=== PATIENT | male | born 1950 ===

== ENCOUNTER 2023-06-14 18:16 | Outpatient (CLI) | payer OTHER, SELFPAY ==
[2023-06-14 16:39] LABS: Abs Immature Grans 0.08 10^3/uL (0.0-0.06); Absolute Basophil Count 0.03 10^3/uL (0.0-0.2); Absolute Eosinophil Count 0.05 10^3/uL (0.0-0.7); Absolute Lymphocyte Count 1.31 10^3/uL (1.2-3.4); Absolute Neutrophil Count 5.89 10^3/uL (1.2-6.7); Basophils % 0.4; Eosinophils % 0.6; HCT 32.6 % (40.0-50.0); HGB 10.7 g/dL (13.5-17.5); Lymphocytes % 16.7; MCH 29.5 pg (27.0-33.0); MCHC 32.8 % (32.0-36.0); MCV 90 fL (80-95); MPV 9.9 fL (8.0-11.0); Monocytes % 6.4; Neutrophils % 74.9; Platelet Count 335 10^3/uL (130-400); RBC 3.63 10^6/uL (4.36-5.78); RDW 13.4 % (11.8-14.1); RDW-SD 44.4 fL; WBC 7.86 10^3/uL (4.4-10.8)
[2023-06-14 17:21] LABS: ALT 141 U/L (16-63); AST 157 U/L (15-37); Albumin 2.3 g/dL (3.4-5.0); Alkaline Phosphatase 727 U/L (46-116); Anion Gap 5.2 mmol/L (3-11); BUN 28 mg/dL (7-18); Bilirubin, Total 2.3 mg/dL (0.2-1.0); CO2 32.8 mmol/L (21.0-32.0); CREATININE 1.3 mg/dL (0.70-1.30); Calcium 9.4 mg/dL (8.5-10.1); Chloride 93 mmol/L (98-107); Estimated GFR 57.65 (mL/min/1.73m2); Glucose 144 mg/dL (74-106); Magnesium 2.3 mg/dL (1.8-2.4); Potassium 3.7 mmol/L (3.5-5.1); Sodium 131 mmol/L (136-145)
[2023-06-17 12:00] LABS: CA 19-9 5666 U/mL (<35)
== END 2023-06-14 18:17 | disposition home or self-care (01) ==
LOC: LBO 18:19
PROVIDERS: PCP Internal Medicine Hematology & Oncology; Visit Provider Internal Medicine Hematology & Oncology
DX: C22.0 Liver cell carcinoma (principal)
CPT/HCPCS: 36415; 80053; 83735; 85025; 86301

== ENCOUNTER 2023-07-24 01:20 | Outpatient (RCR) | payer OTHER, SELFPAY ==
[2023-07-12 10:58] LABS: Abs Immature Grans 0.07 10^3/uL (0.0-0.06); Absolute Basophil Count 0.06 10^3/uL (0.0-0.2); Absolute Eosinophil Count 0.23 10^3/uL (0.0-0.7); Absolute Lymphocyte Count 1.83 10^3/uL (1.2-3.4); Absolute Monocyte Count 0.64 10^3/uL (0.1-0.8); Absolute Neutrophil Count 4.49 10^3/uL (1.2-6.7); Basophils % 0.8; Eosinophils % 3.1; HCT 34.4 % (40.0-50.0); HGB 11.2 g/dL (13.5-17.5); MCH 29.6 pg (27.0-33.0); MCHC 32.6 % (32.0-36.0); MCV 91 fL (80-95); MPV 10.2 fL (8.0-11.0); Monocytes % 8.7; Neutrophils % 61.4; Platelet Count 285 10^3/uL (130-400); RBC 3.79 10^6/uL (4.36-5.78); RDW 17.1 % (11.8-14.1); RDW-SD 56.5 fL; WBC 7.32 10^3/uL (4.4-10.8)
[2023-07-12 11:15] LABS: ALT 57 U/L (16-63); AST 47 U/L (15-37); Alkaline Phosphatase 210 U/L (46-116); Anion Gap 11.4 mmol/L (3-11); BUN 28 mg/dL (7-18); Bilirubin, Total 1.1 mg/dL (0.2-1.0); CO2 21.6 mmol/L (21.0-32.0); CREATININE 1.3 mg/dL (0.70-1.30); Calcium 9.2 mg/dL (8.5-10.1); Chloride 105 mmol/L (98-107); Estimated GFR 57.65 (mL/min/1.73m2); Glucose 91 mg/dL (74-106); Magnesium 2.1 mg/dL (1.8-2.4); Potassium 4.5 mmol/L (3.5-5.1); Sodium 138 mmol/L (136-145); Total Protein 7.7 g/dL (6.4-8.2)
[2023-07-12 12:12] LABS: FREE T4 0.79 ng/dL (0.76-1.46); TSH 6.56 uIU/mL (0.36-3.74)
[2023-07-15 12:19] LABS: CA 19-9 2364 U/mL (<35)
[2023-07-19 08:15] LABS: Abs Immature Grans 0.04 10^3/uL (0.0-0.06); Absolute Basophil Count 0.01 10^3/uL (0.0-0.2); Absolute Eosinophil Count 0.01 10^3/uL (0.0-0.7); Absolute Lymphocyte Count 1.61 10^3/uL (1.2-3.4); Absolute Monocyte Count 0.06 10^3/uL (0.1-0.8); Absolute Neutrophil Count 1.73 10^3/uL (1.2-6.7); Basophils % 0.3; Eosinophils % 0.3; HCT 26.4 % (40.0-50.0); HGB 8.8 g/dL (13.5-17.5); Immature Grans % 1.2; Lymphocytes % 46.5; MCH 30.4 pg (27.0-33.0); MCHC 33.3 % (32.0-36.0); MCV 91 fL (80-95); MPV 9.7 fL (8.0-11.0); Monocytes % 1.7; Platelet Count 152 10^3/uL (130-400); RBC 2.89 10^6/uL (4.36-5.78); RDW 16.4 % (11.8-14.1); RDW-SD 55.8 fL; WBC 3.46 10^3/uL (4.4-10.8)
[2023-07-19 08:31] LABS: Diff Comment Diff Reviewed; Hypochromasia 2+
[2023-07-19 08:35] LABS: ALT 98 U/L (16-63); AST 52 U/L (15-37); Albumin 2.7 g/dL (3.4-5.0); Alkaline Phosphatase 145 U/L (46-116); Anion Gap 10.2 mmol/L (3-11); BUN 25 mg/dL (7-18); Bilirubin, Total 0.9 mg/dL (0.2-1.0); CO2 19.8 mmol/L (21.0-32.0); CREATININE 0.9 mg/dL (0.70-1.30); Calcium 8.5 mg/dL (8.5-10.1); Chloride 106 mmol/L (98-107); Estimated GFR 89.62 (mL/min/1.73m2); Glucose 142 mg/dL (74-106); Magnesium 1.7 mg/dL (1.8-2.4); Sodium 136 mmol/L (136-145); Total Protein 6.5 g/dL (6.4-8.2)
[2023-07-19] MEDS: Normal Saline Flush 10 ML SYR IVP (08:55)
[2023-07-19 09:07] LABS: Reticulocyte 0.2 % (0.5-2.4)
[2023-07-19 22:49] LABS: CA 19-9 2016 U/mL (<35)
[2023-07-22 10:37] LABS: Haptoglobin 154 mg/dL (32-197)
[2023-07-24] MEDS: Normal Saline Flush 10 ML SYR IVP (10:15)
[2023-07-24 11:26] LABS: HCT 25.1 % (40.0-50.0); HGB 8.3 g/dL (13.5-17.5); MCH 30.4 pg (27.0-33.0); MCHC 33.1 % (32.0-36.0); MCV 92 fL (80-95); MPV 9.9 fL (8.0-11.0); Platelet Count 90 10^3/uL (130-400); RBC 2.73 10^6/uL (4.36-5.78); RDW 16.7 % (11.8-14.1); RDW-SD 55.8 fL; WBC 5.95 10^3/uL (4.4-10.8)
[2023-07-24 11:46] LABS: Absolute Lymphocyte Count 2.32 10^3/uL (1.2-3.4); Absolute Neutrophil Count 3.63 10^3/uL (1.2-6.7); Anisocytosis 1+; Diff Comment Manual Differential
== END 2023-08-01 23:59 | disposition home or self-care (01) ==
LOC: INF 01:20
PROVIDERS: PCP Internal Medicine Hematology & Oncology; Visit Provider Internal Medicine Hematology & Oncology
DX: C22.0 Liver cell carcinoma (principal); D64.9 Anemia, unspecified; Z79.899 Other long term (current) drug therapy; Z45.2 Encounter for adjustment and management of vascular access device
CPT/HCPCS: 36591; 80053; 83010; 83735; 84439; 84443; 85025; 85045; 86301

== ENCOUNTER 2023-08-30 01:10 | Outpatient (RCR) | payer OTHER, SELFPAY ==
[2023-08-02 09:28] LABS: Abs Immature Grans 0.01 10^3/uL (0.0-0.06); Absolute Eosinophil Count 0.04 10^3/uL (0.0-0.7); Absolute Lymphocyte Count 0.99 10^3/uL (1.2-3.4); Absolute Monocyte Count 0.51 10^3/uL (0.1-0.8); Eosinophils % 1.7; HCT 24.4 % (40.0-50.0); HGB 8.3 g/dL (13.5-17.5); Immature Grans % 0.4; Lymphocytes % 42.1; MCV 91 fL (80-95); Monocytes % 21.7; Neutrophils % 34.1; Platelet Count 637 10^3/uL (130-400); RBC 2.68 10^6/uL (4.36-5.78); RDW 17.9 % (11.8-14.1); RDW-SD 57.7 fL; WBC 2.35 10^3/uL (4.4-10.8)
[2023-08-02 09:46] LABS: Diff Comment Diff Reviewed; RBC Morphology Normal
[2023-08-02 09:53] LABS: ALT 42 U/L (16-63); AST 28 U/L (15-37); Alkaline Phosphatase 147 U/L (46-116); Anion Gap 10.6 mmol/L (3-11); BUN 25 mg/dL (7-18); Bilirubin, Total 0.7 mg/dL (0.2-1.0); CO2 21.4 mmol/L (21.0-32.0); CREATININE 1.5 mg/dL (0.70-1.30); Calcium 8.6 mg/dL (8.5-10.1); Chloride 104 mmol/L (98-107); Estimated GFR 48.55 (mL/min/1.73m2); FREE T4 0.84 ng/dL (0.76-1.46); Glucose 118 mg/dL (74-106); Potassium 4.6 mmol/L (3.5-5.1); Sodium 136 mmol/L (136-145); TSH 1.93 uIU/Ml (0.36-3.74); Total Protein 6.8 g/dL (6.4-8.2)
[2023-08-02 10:16] LABS: Magnesium 1.4 mg/dL (1.8-2.4)
[2023-08-02] MEDS: Normal Saline Flush 10 ML SYR IVP (10:19)
[2023-08-02 11:23] LABS: Iron 32 ug/dL (65-175); Total Iron Binding Capacity 230 ug/dL (250-450); Transferrin Sat 14 % (20-55)
[2023-08-02 11:57] LABS: Ferritin 932 ng/mL (26-388); Folate 7.5 ng/mL (8.6-20.0); Vitamin B12 627 pg/mL (193-986)
[2023-08-02 17:40] LABS: AFP Tumor Marker <2.5 ng/mL (<8.1)
[2023-08-02 21:02] LABS: CA 19-9 943 U/mL (<35)
[2023-08-09] MEDS: Normal Saline Flush 10 ML SYR IVP (08:27)
[2023-08-09 09:06] LABS: Abs Immature Grans 0.62 10^3/uL (0.0-0.06); Absolute Basophil Count 0.09 10^3/uL (0.0-0.2); Absolute Eosinophil Count 0.16 10^3/uL (0.0-0.7); Absolute Lymphocyte Count 1.18 10^3/uL (1.2-3.4); Absolute Monocyte Count 1.39 10^3/uL (0.1-0.8); Absolute Neutrophil Count 3.85 10^3/uL (1.2-6.7); Basophils % 1.2; Eosinophils % 2.2; HGB 8.5 g/dL (13.5-17.5); Immature Grans % 8.5; Lymphocytes % 16.2; MCH 29.5 pg (27.0-33.0); MCHC 32.7 % (32.0-36.0); MCV 90 fL (80-95); MPV 10.2 fL (8.0-11.0); Monocytes % 19.1; Neutrophils % 52.8; Nucleated RBC 0.3 % (0.0-0.3); Platelet Count 583 10^3/uL (130-400); RBC 2.88 10^6/uL (4.36-5.78); RDW-SD 55.6 fL; WBC 7.29 10^3/uL (4.4-10.8)
[2023-08-09 09:26] LABS: Diff Comment Diff Reviewed; Polychromasia Present
[2023-08-09 09:40] LABS: ALT 39 U/L (16-63); AST 27 U/L (15-37); Albumin 2.5 g/dL (3.4-5.0); Alkaline Phosphatase 157 U/L (46-116); Anion Gap 9.8 mmol/L (3-11); BUN 29 mg/dL (7-18); Bilirubin, Total 0.5 mg/dL (0.2-1.0); CO2 24.2 mmol/L (21.0-32.0); CREATININE 1.4 mg/dL (0.70-1.30); Calcium 8.7 mg/dL (8.5-10.1); Chloride 100 mmol/L (98-107); Estimated GFR 52.74 (mL/min/1.73m2); FREE T4 1.51 ng/dL (0.76-1.46); Glucose 131 mg/dL (74-106); Magnesium 1.9 mg/dL (1.8-2.4); Potassium 5.4 mmol/L (3.5-5.1); Sodium 134 mmol/L (136-145); TSH 2.21 uIU/Ml (0.36-3.74); Total Protein 6.7 g/dL (6.4-8.2)
[2023-08-12 12:15] LABS: CA 19-9 811 U/mL (<35)
[2023-08-16 09:23] LABS: Abs Immature Grans 1.43 10^3/uL (0.0-0.06); HCT 25.3 % (40.0-50.0); MCH 29.5 pg (27.0-33.0); MCHC 31.6 % (32.0-36.0); MCV 93 fL (80-95); MPV 9.9 fL (8.0-11.0); Platelet Count 254 10^3/uL (130-400); RBC 2.71 10^6/uL (4.36-5.78); RDW 16.8 % (11.8-14.1); RDW-SD 56.9 fL; WBC 6.38 10^3/uL (4.4-10.8)
[2023-08-16 09:42] LABS: ALT 83 U/L (16-63); AST 48 U/L (15-37); Albumin 2.8 g/dL (3.4-5.0); Alkaline Phosphatase 135 U/L (46-116); Anion Gap 7.5 mmol/L (3-11); BUN 22 mg/dL (7-18); Bilirubin, Total 0.4 mg/dL (0.2-1.0); CO2 24.5 mmol/L (21.0-32.0); CREATININE 1.1 mg/dL (0.70-1.30); Calcium 8.7 mg/dL (8.5-10.1); Chloride 108 mmol/L (98-107); Estimated GFR 70.44 (mL/min/1.73m2); Glucose 119 mg/dL (74-106); Magnesium 1.5 mg/dL (1.8-2.4); Potassium 5.2 mmol/L (3.5-5.1); Sodium 140 mmol/L (136-145); Total Protein 6.5 g/dL (6.4-8.2)
[2023-08-16 09:59] LABS: Absolute Basophil Count 0.06 10^3/uL (0.0-0.2); Absolute Eosinophil Count 0.06 10^3/uL (0.0-0.7); Absolute Lymphocyte Count 1.98 10^3/uL (1.2-3.4); Absolute Monocyte Count 0.96 10^3/uL (0.1-0.8); Absolute Neutrophil Count 2.93 10^3/uL (1.2-6.7); Atypical Lymphocytes % 3; Bands % 5; Metamyelocytes % 3; Myelocytes % 3
[2023-08-16 10:00] LABS: Diff Comment Manual Differential; Hypochromasia 2+; Polychromasia Present
[2023-08-16] MEDS: Normal Saline Flush 10 ML SYR IVP (10:01)
[2023-08-30] MEDS: Normal Saline Flush 10 ML SYR IVP (08:32)
[2023-08-30 08:42] LABS: Abs Immature Grans 0.04 10^3/uL (0.0-0.06); Absolute Basophil Count 0.02 10^3/uL (0.0-0.2); Absolute Eosinophil Count 0.35 10^3/uL (0.0-0.7); Absolute Lymphocyte Count 1.13 10^3/uL (1.2-3.4); Absolute Monocyte Count 0.64 10^3/uL (0.1-0.8); Absolute Neutrophil Count 3.46 10^3/uL (1.2-6.7); Basophils % 0.4; Eosinophils % 6.2; HCT 22.7 % (40.0-50.0); HGB 7.4 g/dL (13.5-17.5); Immature Grans % 0.7; MCH 30.2 pg (27.0-33.0); MCHC 32.6 % (32.0-36.0); MCV 93 fL (80-95); MPV 9.7 fL (8.0-11.0); Monocytes % 11.3; Neutrophils % 61.4; Platelet Count 427 10^3/uL (130-400); RBC 2.45 10^6/uL (4.36-5.78); RDW 18.2 % (11.8-14.1); RDW-SD 60.7 fL; WBC 5.64 10^3/uL (4.4-10.8)
[2023-08-30 09:07] LABS: ALT 43 U/L (16-63); AST 43 U/L (15-37); Albumin 2.8 g/dL (3.4-5.0); Alkaline Phosphatase 166 U/L (46-116); Anion Gap 7.4 mmol/L (3-11); BUN 17 mg/dL (7-18); Bilirubin, Total 0.3 mg/dL (0.2-1.0); CO2 24.6 mmol/L (21.0-32.0); CREATININE 1.1 mg/dL (0.70-1.30); Calcium 8.6 mg/dL (8.5-10.1); Chloride 108 mmol/L (98-107); Estimated GFR 70.44 (mL/min/1.73m2); FREE T4 0.82 ng/dL (0.76-1.46); Glucose 116 mg/dL (74-106); Magnesium 1.6 mg/dL (1.8-2.4); Potassium 4.8 mmol/L (3.5-5.1); Sodium 140 mmol/L (136-145); TSH 1.89 uIU/Ml (0.36-3.74); Total Protein 6.3 g/dL (6.4-8.2)
[2023-08-30 20:29] LABS: CA 19-9 415 U/mL (<35)
== END 2023-09-01 23:59 | disposition home or self-care (01) ==
LOC: INF 01:10
PROVIDERS: Nurse Practitioner Family; PCP Internal Medicine Hematology & Oncology; Visit Provider Internal Medicine Hematology & Oncology
DX: C22.1 Intrahepatic bile duct carcinoma (principal); Z79.899 Other long term (current) drug therapy; C22.0 Liver cell carcinoma; D64.9 Anemia, unspecified
CPT/HCPCS: 36591; 80053; 82105; 82607; 82728; 82746; 83540; 83550; 83735; 84439; 84443; 85025; 86301

== ENCOUNTER → 2023-09-23 02:38 | Outpatient (CLI) | payer OTHER, SELFPAY ==
[2023-09-23] MEDS: Barium Sulfate 2% W/V-Berry Smoothie 450 ML BTL PO (11:14)
[2023-09-23] MEDS: Barium Sulfate 2% W/V-Creamy Vanilla Smoothie 450 ML BTL PO (11:14)
[2023-09-23] MEDS: Normal Saline - Diluent 50 ML VIAL IJ (13:11)
[2023-09-23] MEDS: Normal Saline Flush 10 ML SYR IJ (13:12)
[2023-09-23] MEDS: Omnipaque 350 MG/ML 500 ML BTL-Imaging package 100 ML IJ (13:58)
--- NOTE | 2023-09-23 14:00 | DI.CT_ITS ---
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 Pulmonary parenchyma: There are bilateral upper lobe opacities present. There are moderate size bila teral pleural effusions with subjacent infiltrates which may represent atelectasis or pneumonia. Manpreet cified granulomatous disease is present. There is a 6-7 mm peripheral left lower lobe nodule which w as present on the prior examination. (Series 5, image 435). Visualized thyroid gland: Unremarkable. Mediastinum and Wendy: There has been interval increase in size of the right paratracheal adenopathy c urrently measuring 1.8 x 1.2 cm (series 5, image 91). This compares to 1.3 x 0.7 cm. There is been increase in size and number of the mediastinal lymph nodes. The esophagus is unremarkable. Pleura: No pneumothorax. Heart: Mild cardiomegaly. Coronary artery calcifications are present. No pericardial effusion. Pulmonary arteries: No pulmonary emboli are identified. Aorta: Thoracic aorta non-dilated. No evidence of dissection. Atherosclerotic calcification is prese nt. Lymph nodes: No significant axillary adenopathy. Tubes, Catheters, and Lines: There is a right-sided Pmjewj-S-Pinl catheter. Soft tissues: Unremarkable. Bones:Within normal limits for the patient's age. No aggressive osseous lesions. ABDOMEN: Liver: There is again seen a percutaneous cholecystostomy tube in the left lobe. There is also a don nt in the common hepatic and common bile duct. There is unchanged slight decreased attenuation in th e liver adjacent to the gallbladder fossa. There is a new a subtle area of decreased attenuation in the lateral periphery of the right lobe of the liver measuring 1.3 cm (series 7, image 290). Portal, Superior Mesenteric, and Splenic Veins: Unremarkable. Gallbladder and Biliary Tract: The gallbladder is contracted. Biliary stents are in place. Pancreas: Normal density, no abnormal calcifications or inflammatory process. Spleen: Normal. Adrenals: No masses seen. Kidneys: Normal size, contour and axis. No radiodense stones or obstructive uropathy. No masses seen. Abdominal Aorta: Abdominal portion non-dilated. Atherosclerotic calcifications are present. Bowel: There is diverticulosis of the colon without evidence of acute diverticulitis. There is no bow el wall thickening or obstruction. No evidence of appendicitis. Peritoneal Cavity: No ascites, collection or mesenteric inflammatory response. No free air. Lymph Nodes: Within normal limits. Bones: Within normal limits for the patient's age. Soft Tissues: Unremarkable. PELVIS: Bladder: Symmetric distention, no gross wall thickening. Reproductive Organs: Unremarkable as visualized. Lymph Nodes: Within normal limits. Bones: Within normal limits. No aggressive osseous lesions are seen. IMPRESSION: 1. Interval development of moderate bilateral pleural effusions and subjacent infiltrates which may r epresent atelectasis or pneumonia. 2. Bilateral predominantly upper lobe opacities in the lungs. Differential considerations include ate lectasis, pneumonia or metastatic disease. 3. Interval increase in size and number of mediastinal adenopathy. 4. Area of decreased attenuation in the periphery of the right lobe of the liver measuring 1.3 cm. He patic metastasis should be considered. 5. Unremarkable CT scan of the chest. RADIATION DOSE DELIVERED: 1,958.99mGy.cm Total DLP DATA REPOSITORY: All CT scans at this facility are submitted to the National Radiology Data Registry (NRDR) Dose Index Registry (DIR) with the [employer] (ACR). RADIATION OPTIMIZATION: All CT scans at this facility use at least one of these dose optimization te chniques: automated exposure control; mA and/or kV adjustment per patient size (includes targeted exa ms where dose is matched to clinical indication); or iterative reconstruction.
== END ==
PROVIDERS: PCP Internal Medicine Hematology & Oncology; Visit Provider Nurse Practitioner Family
DX: C22.1 Intrahepatic bile duct carcinoma (principal); C22.8 Malignant neoplasm of liver, primary, unspecified as to type
CPT/HCPCS: 74177; 71260

== ENCOUNTER 2023-09-27 00:46 | Outpatient (RCR) | payer OTHER, SELFPAY ==
[2023-09-02] VITALS (9 sets, daily range): BP systolic 113–144; BP diastolic 61–72; PULSE 64–76; RESP 16–17; TEMP 36.4–37.1; O2SAT 94–99
[2023-09-02] MEDS: Normal Saline Flush 10 ML SYR IVP (08:30)
[2023-09-02 08:41] LABS: Abs Immature Grans 0.02 10^3/uL (0.0-0.06); Absolute Basophil Count 0.01 10^3/uL (0.0-0.2); Absolute Eosinophil Count 0.18 10^3/uL (0.0-0.7); Absolute Lymphocyte Count 0.62 10^3/uL (1.2-3.4); Absolute Monocyte Count 0.05 10^3/uL (0.1-0.8); Absolute Neutrophil Count 2.82 10^3/uL (1.2-6.7); Basophils % 0.3; Eosinophils % 4.9; HCT 21.7 % (40.0-50.0); Immature Grans % 0.5; Lymphocytes % 16.8; MCH 29.7 pg (27.0-33.0); MCHC 31.8 % (32.0-36.0); MCV 94 fL (80-95); MPV 9.6 fL (8.0-11.0); Monocytes % 1.4; Neutrophils % 76.1; Platelet Count 509 10^3/uL (130-400); RBC 2.32 10^6/uL (4.36-5.78); RDW 17.7 % (11.8-14.1); RDW-SD 60.7 fL
[2023-09-02 08:45] LABS: HGB 6.9 g/dL (13.5-17.5)
[2023-09-06] MEDS: Normal Saline Flush 10 ML SYR IVP (09:25)
[2023-09-06 09:55] LABS: Abs Immature Grans 0.22 10^3/uL (0.0-0.06); HCT 25.7 % (40.0-50.0); HGB 8.7 g/dL (13.5-17.5); MCH 30.6 pg (27.0-33.0); MCHC 33.9 % (32.0-36.0); MCV 91 fL (80-95); MPV 9.1 fL (8.0-11.0); Platelet Count 356 10^3/uL (130-400); RBC 2.84 10^6/uL (4.36-5.78); RDW 16.2 % (11.8-14.1); RDW-SD 53.1 fL; WBC 3.94 10^3/uL (4.4-10.8)
[2023-09-06 10:27] LABS: Absolute Lymphocyte Count 1.42 10^3/uL (1.2-3.4); Absolute Monocyte Count 0.35 10^3/uL (0.1-0.8); Absolute Neutrophil Count 1.85 10^3/uL (1.2-6.7); Atypical Lymphocytes % 5; Bands % 0; Diff Comment Manual Differential; Metamyelocytes % 2; Myelocytes % 1
[2023-09-06 10:28] LABS: Basophilic Stippling Present; Polychromasia Present
[2023-09-06 10:30] LABS: ALT 50 U/L (16-63); AST 37 U/L (15-37); Albumin 2.8 g/dL (3.4-5.0); Alkaline Phosphatase 191 U/L (46-116); Anion Gap 5.8 mmol/L (3-11); BUN 19 mg/dL (7-18); Bilirubin, Total 0.6 mg/dL (0.2-1.0); CO2 29.2 mmol/L (21.0-32.0); Chloride 101 mmol/L (98-107); Estimated GFR 78.98 (mL/min/1.73m2); Glucose 164 mg/dL (74-106); Magnesium 1.7 mg/dL (1.8-2.4); Potassium 5.4 mmol/L (3.5-5.1); Sodium 136 mmol/L (136-145); TSH 3.88 uIU/Ml (0.36-3.74); Total Protein 6.6 g/dL (6.4-8.2)
[2023-09-06 23:29] LABS: CA 19-9 298 U/mL (<35)
[2023-09-20] MEDS: Normal Saline Flush 10 ML SYR IVP (09:44)
[2023-09-20 09:46] LABS: Abs Immature Grans 0.05 10^3/uL (0.0-0.06); Absolute Basophil Count 0.01 10^3/uL (0.0-0.2); Absolute Eosinophil Count 0.04 10^3/uL (0.0-0.7); Absolute Lymphocyte Count 0.39 10^3/uL (1.2-3.4); Absolute Monocyte Count 0.87 10^3/uL (0.1-0.8); Absolute Neutrophil Count 7.51 10^3/uL (1.2-6.7); Basophils % 0.1; Eosinophils % 0.5; HCT 26.5 % (40.0-50.0); HGB 8.6 g/dL (13.5-17.5); Immature Grans % 0.6; Lymphocytes % 4.4; MCH 29.7 pg (27.0-33.0); MCHC 32.5 % (32.0-36.0); MCV 91 fL (80-95); Monocytes % 9.8; Neutrophils % 84.6; Platelet Count 291 10^3/uL (130-400); RDW 16.9 % (11.8-14.1); RDW-SD 56.3 fL; WBC 8.87 10^3/uL (4.4-10.8)
[2023-09-20 10:08] LABS: ALT 50 U/L (16-63); AST 45 U/L (15-37); Albumin 2.8 g/dL (3.4-5.0); Alkaline Phosphatase 254 U/L (46-116); Anion Gap 8.3 mmol/L (3-11); BUN 17 mg/dL (7-18); Bilirubin, Total 0.9 mg/dL (0.2-1.0); CO2 26.7 mmol/L (21.0-32.0); CREATININE 1.1 mg/dL (0.70-1.30); Calcium 8.6 mg/dL (8.5-10.1); Chloride 100 mmol/L (98-107); Estimated GFR 70.44 (mL/min/1.73m2); FREE T4 1.02 ng/dL (0.76-1.46); Glucose 183 mg/dL (74-106); Magnesium 1.6 mg/dL (1.8-2.4); Potassium 4.7 mmol/L (3.5-5.1); Sodium 135 mmol/L (136-145); TSH 2.05 uIU/Ml (0.36-3.74); Total Protein 6.6 g/dL (6.4-8.2)
[2023-09-23] MEDS: Normal Saline Flush 10 ML SYR IVP (11:00)
[2023-09-23 11:49] LABS: CA 19-9 271 U/mL (<35)
[2023-09-27] MEDS: Normal Saline Flush 10 ML SYR IVP (09:25)
[2023-09-27 09:28] LABS: Abs Immature Grans 0.32 10^3/uL (0.0-0.06); Absolute Basophil Count 0.03 10^3/uL (0.0-0.2); Absolute Eosinophil Count 0.09 10^3/uL (0.0-0.7); Absolute Lymphocyte Count 0.92 10^3/uL (1.2-3.4); Absolute Monocyte Count 0.52 10^3/uL (0.1-0.8); Absolute Neutrophil Count 1.85 10^3/uL (1.2-6.7); Basophils % 0.8; Eosinophils % 2.4; HCT 26.5 % (40.0-50.0); HGB 8.5 g/dL (13.5-17.5); Immature Grans % 8.6; Lymphocytes % 24.7; MCH 29.3 pg (27.0-33.0); MCHC 32.1 % (32.0-36.0); MCV 91 fL (80-95); MPV 8.1 fL (8.0-11.0); Monocytes % 13.9; Neutrophils % 49.6; Nucleated RBC 1.1 % (0.0-0.3); Platelet Count 214 10^3/uL (130-400); RDW 15.9 % (11.8-14.1); RDW-SD 53.1 fL; WBC 3.73 10^3/uL (4.4-10.8)
[2023-09-27 09:35] LABS: Diff Comment Diff Reviewed; RBC Morphology Normal
[2023-09-27 09:42] LABS: ALT 67 U/L (16-63); AST 44 U/L (15-37); Alkaline Phosphatase 282 U/L (46-116); Anion Gap 8.7 mmol/L (3-11); BUN 18 mg/dL (7-18); Bilirubin, Total 0.4 mg/dL (0.2-1.0); CO2 27.3 mmol/L (21.0-32.0); CREATININE 1.1 mg/dL (0.70-1.30); Calcium 8.8 mg/dL (8.5-10.1); Chloride 103 mmol/L (98-107); Estimated GFR 70.44 (mL/min/1.73m2); Glucose 126 mg/dL (74-106); Magnesium 1.5 mg/dL (1.8-2.4); Potassium 4.8 mmol/L (3.5-5.1); Sodium 139 mmol/L (136-145); Total Protein 6.6 g/dL (6.4-8.2)
== END 2023-10-01 23:59 | disposition home or self-care (01) ==
LOC: INF 00:46
PROVIDERS: PCP Internal Medicine Hematology & Oncology; Visit Provider Internal Medicine Hematology & Oncology
DX: C22.0 Liver cell carcinoma (principal); C22.1 Intrahepatic bile duct carcinoma; D64.9 Anemia, unspecified; Z79.899 Other long term (current) drug therapy
CPT/HCPCS: 36430; 36591; 80053; 86850; 86900; 86901; 86920; 96523; 83735; 84439; 84443; 85025; 86301; P9016

== ENCOUNTER 2023-11-01 00:34 | Outpatient (RCR) | payer OTHER, SELFPAY ==
[2023-10-02 00:24] VITALS: BP 128/66; PULSE 69; RESP 16; TEMP 36.4
[2023-10-10] VITALS (11 sets, daily range): BP systolic 144–164; BP diastolic 70–86; PULSE 66–86; RESP 16–18; TEMP 36.1–36.8; O2SAT 97–100
[2023-10-10 10:00] LABS: Abs Immature Grans 0.04 10^3/uL (0.0-0.06); Absolute Basophil Count 0.01 10^3/uL (0.0-0.2); Absolute Eosinophil Count 0.04 10^3/uL (0.0-0.7); Absolute Lymphocyte Count 0.73 10^3/uL (1.2-3.4); Absolute Monocyte Count 0.78 10^3/uL (0.1-0.8); Absolute Neutrophil Count 3.38 10^3/uL (1.2-6.7); Basophils % 0.2 %; Eosinophils % 0.8 %; Immature Grans % 0.8 %; Lymphocytes % 14.7 %; MCH 29.2 pg (27.0-33.0); MCHC 31.8 % (32.0-36.0); MCV 92 fL (80-95); MPV 9.9 fL (8.0-11.0); Monocytes % 15.7 %; Neutrophils % 67.8 %; Platelet Count 318 10^3/uL (130-400); RDW 17.5 % (11.8-14.1); RDW-SD 59.2 fL; WBC 4.98 10^3/uL (4.4-10.8)
[2023-10-10 10:17] LABS: ALT 23 U/L (16-63); AST 15 U/L (15-37); Albumin 2.7 g/dL (3.4-5.0); Alkaline Phosphatase 119 U/L (46-116); Anion Gap 8.9 mmol/L (3-11); BUN 23 mg/dL (7-18); Bilirubin, Total 0.4 mg/dL (0.2-1.0); CO2 26.1 mmol/L (21.0-32.0); CREATININE 1.3 mg/dL (0.70-1.30); Calcium 8.7 mg/dL (8.5-10.1); Chloride 102 mmol/L (98-107); Estimated GFR 57.65 (mL/min/1.73m2); Glucose 179 mg/dL (74-106); Magnesium 1.6 mg/dL (1.8-2.4); Potassium 4.3 mmol/L (3.5-5.1); Sodium 137 mmol/L (136-145); Total Protein 6.2 g/dL (6.4-8.2)
[2023-10-10] MEDS: diphenhydrAMINE 25 MG CAP PO (11:46)
[2023-10-10] MEDS: Acetaminophen 325 MG TAB 650 MG PO (11:46)
[2023-10-10 12:05] LABS: Reticulocyte 5.5 % (0.5-2.4)
[2023-10-10 12:31] LABS: Bilirubin Negative (Negative); Blood Small (Negative); Clarity Cloudy (Clear); Glucose Negative (Negative); Ketones Negative (Negative); Leukocyte Esterase Moderate (Negative); Nitrite Positive (Negative); Urobilinogen 0.2 mg/dL (Up to 0.2)
[2023-10-10 12:37] LABS: C & S Indicated? Yes; WBC >50 HPF (0-5)
[2023-10-10 13:10] LABS: Folate 9.8 ng/mL (8.6-20.0); Vitamin B12 1242 pg/mL (193-986)
[2023-10-10 13:12] LABS: Ferritin 1424 ng/mL (26-388)
[2023-10-10 15:52] LABS: Iron 27 ug/dL (65-175); Total Iron Binding Capacity 180 ug/dL (250-450); Transferrin Sat 15 % (20-55)
[2023-10-10] MEDS: Normal Saline Flush 10 ML SYR IVP (17:17)
[2023-10-11 09:47] LABS: Haptoglobin 194 mg/dL (32-197)
[2023-10-17 10:55] LABS: Abs Immature Grans 0.26 10^3/uL (0.0-0.06); Absolute Basophil Count 0.03 10^3/uL (0.0-0.2); Absolute Eosinophil Count 0.14 10^3/uL (0.0-0.7); Absolute Monocyte Count 1.02 10^3/uL (0.1-0.8); Absolute Neutrophil Count 3.21 10^3/uL (1.2-6.7); Basophils % 0.5 %; Eosinophils % 2.5 %; HCT 30.3 % (40.0-50.0); HGB 9.7 g/dL (13.5-17.5); Immature Grans % 4.6 %; Lymphocytes % 17.7 %; MCV 91 fL (80-95); MPV 8.8 fL (8.0-11.0); Neutrophils % 56.7 %; Platelet Count 338 10^3/uL (130-400); RBC 3.34 10^6/uL (4.36-5.78); RDW 17.8 % (11.8-14.1); RDW-SD 59.2 fL; WBC 5.66 10^3/uL (4.4-10.8)
[2023-10-17] MEDS: Normal Saline Flush 10 ML SYR IVP (11:05)
[2023-10-17 11:21] LABS: ALT 30 U/L (16-63); AST 26 U/L (15-37); Albumin 2.8 g/dL (3.4-5.0); Alkaline Phosphatase 87 U/L (46-116); Anion Gap 5.6 mmol/L (3-11); BUN 22 mg/dL (7-18); Bilirubin, Total 0.5 mg/dL (0.2-1.0); CO2 28.4 mmol/L (21.0-32.0); CREATININE 1.1 mg/dL (0.70-1.30); Calcium 8.5 mg/dL (8.5-10.1); Chloride 103 mmol/L (98-107); Estimated GFR 70.44 (mL/min/1.73m2); Glucose 171 mg/dL (74-106); Magnesium 1.7 mg/dL (1.8-2.4); Potassium 4.5 mmol/L (3.5-5.1); Sodium 137 mmol/L (136-145); TSH 1.45 uIU/Ml (0.36-3.74); Total Protein 6.3 g/dL (6.4-8.2)
[2023-10-18 08:57] LABS: CA 19-9 181 U/mL (<35)
[2023-10-22] MEDS: Normal Saline Flush 10 ML SYR IVP (07:41)
[2023-11-01] MEDS: Normal Saline Flush 10 ML SYR IVP (09:06)
[2023-11-01 09:28] LABS: Abs Immature Grans 0.03 10^3/uL (0.0-0.06); Absolute Basophil Count 0.01 10^3/uL (0.0-0.2); Absolute Eosinophil Count 0.02 10^3/uL (0.0-0.7); Absolute Lymphocyte Count 0.97 10^3/uL (1.2-3.4); Absolute Monocyte Count 0.44 10^3/uL (0.1-0.8); Absolute Neutrophil Count 3.71 10^3/uL (1.2-6.7); Basophils % 0.2 %; Eosinophils % 0.4 %; HCT 26.2 % (40.0-50.0); HGB 8.5 g/dL (13.5-17.5); Immature Grans % 0.6 %; Lymphocytes % 18.7 %; MCH 29.5 pg (27.0-33.0); MCHC 32.4 % (32.0-36.0); MCV 91 fL (80-95); Monocytes % 8.5 %; Neutrophils % 71.6 %; Platelet Count 175 10^3/uL (130-400); RBC 2.88 10^6/uL (4.36-5.78); RDW 18.8 % (11.8-14.1); RDW-SD 62.8 fL; WBC 5.18 10^3/uL (4.4-10.8)
[2023-11-01 09:53] LABS: ALT 29 U/L (16-63); AST 26 U/L (15-37); Albumin 2.9 g/dL (3.4-5.0); Alkaline Phosphatase 71 U/L (46-116); Anion Gap 6.8 mmol/L (3-11); BUN 24 mg/dL (7-18); Bilirubin, Total 0.4 mg/dL (0.2-1.0); CO2 26.2 mmol/L (21.0-32.0); CREATININE 1.2 mg/dL (0.70-1.30); Calcium 8.9 mg/dL (8.5-10.1); Chloride 107 mmol/L (98-107); Estimated GFR 63.46 (mL/min/1.73m2); FREE T4 0.76 ng/dL (0.76-1.46); Glucose 181 mg/dL (74-106); Magnesium 1.6 mg/dL (1.8-2.4); Potassium 4.7 mmol/L (3.5-5.1); Sodium 140 mmol/L (136-145); TSH 3.29 uIU/Ml (0.36-3.74); Total Protein 6.3 g/dL (6.4-8.2)
[2023-11-01 21:24] LABS: CA 19-9 140 U/mL (<35)
== END 2023-11-01 23:59 | disposition home or self-care (01) ==
LOC: INF 00:34
PROVIDERS: PCP Internal Medicine Hematology & Oncology; Visit Provider Internal Medicine Hematology & Oncology
DX: C22.1 Intrahepatic bile duct carcinoma (principal); M10.9 Gout, unspecified
CPT/HCPCS: 36430; 36591; 80053; 86850; 86900; 86901; 86920; 87077; 96523; 81003; 81015; 82607; 82728; 82746; 83010; 83540; 83550; 83735; 84439; 84443; 84550; 85025; 85045; 86301; 87086; 87186; P9016

== ENCOUNTER 2023-11-27 01:16 | Outpatient (RCR) | payer OTHER, SELFPAY ==
[2023-11-02 00:25] VITALS: BP 128/66; PULSE 69; RESP 16; TEMP 36.4
[2023-11-13] MEDS: Normal Saline Flush 10 ML SYR IVP (11:28)
[2023-11-13 11:29] LABS: Abs Immature Grans 0.05 10^3/uL (0.0-0.06); Absolute Basophil Count 0.01 10^3/uL (0.0-0.2); Absolute Eosinophil Count 0.11 10^3/uL (0.0-0.7); Absolute Lymphocyte Count 1.02 10^3/uL (1.2-3.4); Absolute Monocyte Count 0.37 10^3/uL (0.1-0.8); Basophils % 0.2 %; Eosinophils % 2.6 %; HCT 23.1 % (40.0-50.0); HGB 7.2 g/dL (13.5-17.5); Immature Grans % 1.2 %; Lymphocytes % 24.3 %; MCH 29.5 pg (27.0-33.0); MCHC 31.2 % (32.0-36.0); MCV 95 fL (80-95); MPV 10.5 fL (8.0-11.0); Monocytes % 8.8 %; Neutrophils % 62.9 %; RBC 2.44 10^6/uL (4.36-5.78); RDW 19.9 % (11.8-14.1); RDW-SD 67.9 fL; WBC 4.19 10^3/uL (4.4-10.8)
[2023-11-13 11:31] LABS: Absolute Neutrophil Count 2.64 10^3/uL (1.2-6.7)
[2023-11-13 11:50] LABS: Diff Comment Diff Reviewed; Platelet Count 90 10^3/uL (130-400)
[2023-11-13 11:51] LABS: Hypochromasia 2+
[2023-11-13 11:55] LABS: ALT 62 U/L (16-63); AST 32 U/L (15-37); Albumin 2.7 g/dL (3.4-5.0); Alkaline Phosphatase 146 U/L (46-116); Anion Gap 6.7 mmol/L (3-11); BUN 25 mg/dL (7-18); Bilirubin, Total 0.3 mg/dL (0.2-1.0); CO2 26.3 mmol/L (21.0-32.0); CREATININE 1.5 mg/dL (0.70-1.30); Calcium 8.7 mg/dL (8.5-10.1); Chloride 108 mmol/L (98-107); Estimated GFR 48.55 (mL/min/1.73m2); FREE T4 0.92 ng/dL (0.76-1.46); Glucose 153 mg/dL (74-106); Potassium 4.5 mmol/L (3.5-5.1); Sodium 141 mmol/L (136-145); TSH 3.51 uIU/Ml (0.36-3.74); Total Protein 6.1 g/dL (6.4-8.2)
[2023-11-13 19:42] LABS: Magnesium 1.4 mg/dL (1.8-2.4)
[2023-11-13 19:55] LABS: CA 19-9 168 U/mL (<35)
[2023-11-14] MEDS: diphenhydrAMINE 25 MG CAP (10:30)
[2023-11-14 11:01] VITALS: BP 150/72; PULSE 63; RESP 18; TEMP 36.3; O2SAT 100
[2023-11-14 11:16] VITALS: BP 160/77; PULSE 56; RESP 18; TEMP 36.3; O2SAT 100
[2023-11-14 11:35] VITALS: BP 137/64; PULSE 57; RESP 18; TEMP 36.2; O2SAT 100
[2023-11-14 12:08] VITALS: BP 166/81; PULSE 66; RESP 16; TEMP 36.2; O2SAT 100
[2023-11-14 13:03] VITALS: BP 158/69; PULSE 65; RESP 17; TEMP 36.3; O2SAT 98
[2023-11-14] MEDS: Normal Saline Flush 10 ML SYR IVP (13:05)
[2023-11-20] MEDS: Normal Saline Flush 10 ML SYR IVP (11:32)
[2023-11-20 11:43] LABS: Abs Immature Grans 0.03 10^3/uL (0.0-0.06); Absolute Basophil Count 0.02 10^3/uL (0.0-0.2); Absolute Eosinophil Count 0.06 10^3/uL (0.0-0.7); Absolute Lymphocyte Count 1.31 10^3/uL (1.2-3.4); Absolute Monocyte Count 0.57 10^3/uL (0.1-0.8); Absolute Neutrophil Count 2.29 10^3/uL (1.2-6.7); Basophils % 0.5 %; Eosinophils % 1.4 %; HCT 29.4 % (40.0-50.0); HGB 9.1 g/dL (13.5-17.5); Immature Grans % 0.7 %; Lymphocytes % 30.6 %; MCH 29.8 pg (27.0-33.0); MCV 96 fL (80-95); MPV 9.3 fL (8.0-11.0); Monocytes % 13.3 %; Neutrophils % 53.5 %; Platelet Count 198 10^3/uL (130-400); RBC 3.05 10^6/uL (4.36-5.78); RDW 20.6 % (11.8-14.1); RDW-SD 71.6 fL; WBC 4.28 10^3/uL (4.4-10.8)
[2023-11-20 12:11] LABS: Anisocytosis 2+; Diff Comment RBC Morph Reviewed
[2023-11-20 12:12] LABS: Macrocytosis 1+
[2023-11-20 12:31] LABS: ALT 38 U/L (16-63); AST 33 U/L (15-37); Alkaline Phosphatase 123 U/L (46-116); Anion Gap 5.4 mmol/L (3-11); BUN 31 mg/dL (7-18); Bilirubin, Total 0.6 mg/dL (0.2-1.0); CO2 29.6 mmol/L (21.0-32.0); CREATININE 1.5 mg/dL (0.70-1.30); Calcium 8.9 mg/dL (8.5-10.1); Chloride 105 mmol/L (98-107); Estimated GFR 48.55 (mL/min/1.73m2); Glucose 188 mg/dL (74-106); Iron 75 ug/dL (65-175); Magnesium 1.7 mg/dL (1.8-2.4); Potassium 5.1 mmol/L (3.5-5.1); Sodium 140 mmol/L (136-145); Total Iron Binding Capacity 215 ug/dL (250-450); Total Protein 6.7 g/dL (6.4-8.2); Transferrin Sat 35 % (20-55)
[2023-11-20 12:32] LABS: Ferritin 1352 ng/mL (26-388)
[2023-11-22 08:35] LABS: CA 19-9 127 U/mL (<35)
[2023-11-27] MEDS: Normal Saline Flush 10 ML SYR IVP (10:00)
[2023-11-27 12:23] LABS: Abs Immature Grans 0.02 10^3/uL (0.0-0.06); Absolute Basophil Count 0.01 10^3/uL (0.0-0.2); Absolute Eosinophil Count 0.08 10^3/uL (0.0-0.7); Absolute Lymphocyte Count 0.95 10^3/uL (1.2-3.4); Absolute Monocyte Count 0.04 10^3/uL (0.1-0.8); Absolute Neutrophil Count 2.18 10^3/uL (1.2-6.7); Basophils % 0.3 %; Eosinophils % 2.4 %; HCT 27.6 % (40.0-50.0); HGB 8.8 g/dL (13.5-17.5); Immature Grans % 0.6 %; MCH 30.4 pg (27.0-33.0); MCHC 31.9 % (32.0-36.0); MCV 96 fL (80-95); Monocytes % 1.2 %; Neutrophils % 66.5 %; Platelet Count 132 10^3/uL (130-400); RBC 2.89 10^6/uL (4.36-5.78); RDW 18.6 % (11.8-14.1); RDW-SD 66.5 fL; WBC 3.28 10^3/uL (4.4-10.8)
[2023-11-27 12:48] LABS: ALT 67 U/L (16-63); AST 54 U/L (15-37); Albumin 2.9 g/dL (3.4-5.0); Alkaline Phosphatase 108 U/L (46-116); Anion Gap 6.7 mmol/L (3-11); BUN 25 mg/dL (7-18); Bilirubin, Total 0.37 mg/dL (0.2-1.0); CO2 28.3 mmol/L (21.0-32.0); CREATININE 1.3 mg/dL (0.70-1.30); Calcium 8.6 mg/dL (8.5-10.1); Chloride 105 mmol/L (98-107); Estimated GFR 57.65 (mL/min/1.73m2); Glucose 153 mg/dL (74-106); Potassium 4.5 mmol/L (3.5-5.1); Sodium 140 mmol/L (136-145); Total Protein 6.5 g/dL (6.4-8.2)
== END 2023-12-01 23:59 | disposition home or self-care (01) ==
LOC: INF 01:16
PROVIDERS: PCP Internal Medicine Hematology & Oncology; Visit Provider Internal Medicine Hematology & Oncology
DX: Z45.2 Encounter for adjustment and management of vascular access device (principal); C22.1 Intrahepatic bile duct carcinoma
CPT/HCPCS: 36430; 36591; 80053; 86850; 86900; 86901; 86920; 82728; 83540; 83550; 83735; 84439; 84443; 85025; 86301; P9016

== ENCOUNTER 2023-12-27 00:40 | Outpatient (RCR) | payer OTHER, SELFPAY ==
[2023-12-02 00:26] VITALS: BP 128/66; PULSE 69; RESP 16; TEMP 36.4
[2023-12-13 08:16] LABS: Abs Immature Grans 0.01 10^3/uL (0.0-0.06); Absolute Basophil Count 0.01 10^3/uL (0.0-0.2); Absolute Eosinophil Count 0.14 10^3/uL (0.0-0.7); Absolute Lymphocyte Count 1.14 10^3/uL (1.2-3.4); Absolute Monocyte Count 0.38 10^3/uL (0.1-0.8); Absolute Neutrophil Count 1.51 10^3/uL (1.2-6.7); Basophils % 0.3 %; Eosinophils % 4.4 %; HCT 32.1 % (40.0-50.0); HGB 10.4 g/dL (13.5-17.5); Immature Grans % 0.3 %; Lymphocytes % 35.7 %; MCH 31.4 pg (27.0-33.0); MCHC 32.4 % (32.0-36.0); MCV 97 fL (80-95); Monocytes % 11.9 %; Neutrophils % 47.4 %; Platelet Count 211 10^3/uL (130-400); RBC 3.31 10^6/uL (4.36-5.78); RDW-SD 68.5 fL; WBC 3.19 10^3/uL (4.4-10.8)
[2023-12-13] MEDS: Normal Saline Flush 10 ML SYR IVP (08:43)
[2023-12-13 08:45] LABS: ALT 30 U/L (16-63); AST 28 U/L (15-37); Alkaline Phosphatase 88 U/L (46-116); Anion Gap 5.6 mmol/L (3-11); BUN 24 mg/dL (7-18); Bilirubin, Total 0.33 mg/dL (0.2-1.0); CO2 28.4 mmol/L (21.0-32.0); CREATININE 1.4 mg/dL (0.70-1.30); Calcium 8.9 mg/dL (8.5-10.1); Chloride 109 mmol/L (98-107); Estimated GFR 52.74 (mL/min/1.73m2); Glucose 188 mg/dL (74-106); Potassium 4.5 mmol/L (3.5-5.1); Sodium 143 mmol/L (136-145); Total Protein 6.5 g/dL (6.4-8.2)
[2023-12-13 09:38] LABS: Magnesium 1.5 mg/dL (1.8-2.4)
[2023-12-16 10:09] LABS: CA 19-9 101 U/mL (<35)
[2023-12-27 09:09] LABS: Abs Immature Grans 0.02 10^3/uL (0.0-0.06); Absolute Basophil Count 0.02 10^3/uL (0.0-0.2); Absolute Eosinophil Count 0.15 10^3/uL (0.0-0.7); Absolute Lymphocyte Count 0.95 10^3/uL (1.2-3.4); Absolute Monocyte Count 0.39 10^3/uL (0.1-0.8); Absolute Neutrophil Count 3.52 10^3/uL (1.2-6.7); Basophils % 0.4 %; HCT 31.8 % (40.0-50.0); HGB 10.4 g/dL (13.5-17.5); Immature Grans % 0.4 %; Lymphocytes % 18.8 %; MCH 32.1 pg (27.0-33.0); MCHC 32.7 % (32.0-36.0); MCV 98 fL (80-95); MPV 10.3 fL (8.0-11.0); Monocytes % 7.7 %; Neutrophils % 69.7 %; Platelet Count 157 10^3/uL (130-400); RBC 3.24 10^6/uL (4.36-5.78); RDW 17.1 % (11.8-14.1); RDW-SD 61.6 fL; WBC 5.05 10^3/uL (4.4-10.8)
[2023-12-27 09:30] LABS: ALT 36 U/L (16-63); AST 26 U/L (15-37); Albumin 3.3 g/dL (3.4-5.0); Alkaline Phosphatase 88 U/L (46-116); Anion Gap 6.4 mmol/L (3-11); BUN 19 mg/dL (7-18); Bilirubin, Total 0.63 mg/dL (0.2-1.0); CO2 27.6 mmol/L (21.0-32.0); CREATININE 1.3 mg/dL (0.70-1.30); Chloride 108 mmol/L (98-107); Estimated GFR 57.65 (mL/min/1.73m2); Glucose 153 mg/dL (74-106); Magnesium 1.6 mg/dL (1.8-2.4); Potassium 4.3 mmol/L (3.5-5.1); Sodium 142 mmol/L (136-145); Total Protein 6.6 g/dL (6.4-8.2)
[2023-12-27 09:58] VITALS: BP 128/66; PULSE 69; RESP 16; TEMP 36.4
[2023-12-27] MEDS: Normal Saline Flush 10 ML SYR IVP (09:59)
[2023-12-30 15:50] LABS: CA 19-9 73 U/mL (<35)
== END 2024-01-01 23:59 | disposition home or self-care (01) ==
LOC: INF 00:40
PROVIDERS: PCP Internal Medicine Hematology & Oncology; Visit Provider Internal Medicine Hematology & Oncology
DX: C22.0 Liver cell carcinoma (principal); C22.1 Intrahepatic bile duct carcinoma; Z45.2 Encounter for adjustment and management of vascular access device
CPT/HCPCS: 36591; 80053; 83735; 85025; 86301

== ENCOUNTER 2024-01-24 00:29 | Outpatient (RCR) | payer OTHER, SELFPAY ==
[2024-01-02 00:32] VITALS: BP 128/66; PULSE 69; RESP 16; TEMP 36.4
[2024-01-09] MEDS: Normal Saline Flush 10 ML SYR IVP (09:15)
[2024-01-09 09:19] LABS: Abs Immature Grans 0.02 10^3/uL (0.0-0.06); Absolute Basophil Count 0.01 10^3/uL (0.0-0.2); Absolute Eosinophil Count 0.11 10^3/uL (0.0-0.7); Absolute Lymphocyte Count 1.19 10^3/uL (1.2-3.4); Absolute Monocyte Count 0.43 10^3/uL (0.1-0.8); Absolute Neutrophil Count 2.51 10^3/uL (1.2-6.7); Basophils % 0.2 %; Eosinophils % 2.6 %; HCT 30.8 % (40.0-50.0); Immature Grans % 0.5 %; Lymphocytes % 27.9 %; MCH 31.6 pg (27.0-33.0); MCHC 32.5 % (32.0-36.0); MCV 98 fL (80-95); MPV 10.1 fL (8.0-11.0); Monocytes % 10.1 %; Neutrophils % 58.7 %; Platelet Count 131 10^3/uL (130-400); RBC 3.16 10^6/uL (4.36-5.78); RDW 15.9 % (11.8-14.1); RDW-SD 56.9 fL; WBC 4.27 10^3/uL (4.4-10.8)
[2024-01-09 09:40] LABS: ALT 33 U/L (16-63); AST 27 U/L (15-37); Albumin 3.5 g/dL (3.4-5.0); Alkaline Phosphatase 79 U/L (46-116); Anion Gap 7.7 mmol/L (3-11); BUN 25 mg/dL (7-18); Bilirubin, Total 0.41 mg/dL (0.2-1.0); CO2 27.3 mmol/L (21.0-32.0); CREATININE 1.2 mg/dL (0.70-1.30); Calcium 9.2 mg/dL (8.5-10.1); Chloride 106 mmol/L (98-107); Estimated GFR 63.46 (mL/min/1.73m2); Glucose 114 mg/dL (74-106); Magnesium 1.8 mg/dL (1.8-2.4); Potassium 4.7 mmol/L (3.5-5.1); Sodium 141 mmol/L (136-145); Total Protein 6.8 g/dL (6.4-8.2)
[2024-01-10 09:16] LABS: CA 19-9 68 U/mL (<35)
[2024-01-24] MEDS: Normal Saline Flush 10 ML SYR IVP (09:07)
[2024-01-24 09:23] LABS: Abs Immature Grans 0.01 10^3/uL (0.0-0.06); Absolute Basophil Count 0.02 10^3/uL (0.0-0.2); Absolute Eosinophil Count 0.16 10^3/uL (0.0-0.7); Absolute Lymphocyte Count 1.08 10^3/uL (1.2-3.4); Absolute Monocyte Count 0.54 10^3/uL (0.1-0.8); Absolute Neutrophil Count 3.32 10^3/uL (1.2-6.7); Basophils % 0.4 %; Eosinophils % 3.1 %; HCT 28.8 % (40.0-50.0); HGB 9.5 g/dL (13.5-17.5); Immature Grans % 0.2 %; Lymphocytes % 21.1 %; MCH 32.1 pg (27.0-33.0); MCV 97 fL (80-95); MPV 10.6 fL (8.0-11.0); Monocytes % 10.5 %; Neutrophils % 64.7 %; Platelet Count 142 10^3/uL (130-400); RBC 2.96 10^6/uL (4.36-5.78); RDW 16.9 % (11.8-14.1); RDW-SD 58.6 fL; WBC 5.13 10^3/uL (4.4-10.8)
[2024-01-24 09:40] LABS: ALT 55 U/L (16-63); AST 38 U/L (15-37); Albumin 3.2 g/dL (3.4-5.0); Alkaline Phosphatase 81 U/L (46-116); Anion Gap 5.5 mmol/L (3-11); BUN 31 mg/dL (7-18); Bilirubin, Total 0.26 mg/dL (0.2-1.0); CO2 28.5 mmol/L (21.0-32.0); CREATININE 1.2 mg/dL (0.70-1.30); Calcium 9.2 mg/dL (8.5-10.1); Chloride 107 mmol/L (98-107); Estimated GFR 63.46 (mL/min/1.73m2); Glucose 103 mg/dL (74-106); Magnesium 1.9 mg/dL (1.8-2.4); Potassium 4.5 mmol/L (3.5-5.1); Sodium 141 mmol/L (136-145); Total Protein 6.4 g/dL (6.4-8.2)
[2024-01-24 20:41] LABS: CA 19-9 66 U/mL (<35)
== END 2024-02-01 23:59 | disposition home or self-care (01) ==
LOC: INF 00:29
PROVIDERS: PCP Internal Medicine Hematology & Oncology; Visit Provider Internal Medicine Hematology & Oncology
DX: C22.0 Liver cell carcinoma (principal); C22.1 Intrahepatic bile duct carcinoma; Z79.899 Other long term (current) drug therapy
CPT/HCPCS: 36591; 80053; 83735; 85025; 86301

== ENCOUNTER 2024-02-07 01:01 | Outpatient (RCR) | payer OTHER, SELFPAY ==
[2024-02-02 00:12] VITALS: BP 128/66; PULSE 69; RESP 16; TEMP 36.4
[2024-02-07] MEDS: Normal Saline Flush 10 ML SYR IVP (08:07)
[2024-02-07 08:29] LABS: Abs Immature Grans 0.04 10^3/uL (0.0-0.06); Absolute Basophil Count 0.02 10^3/uL (0.0-0.2); Absolute Lymphocyte Count 1.25 10^3/uL (1.2-3.4); Absolute Monocyte Count 0.49 10^3/uL (0.1-0.8); Absolute Neutrophil Count 3.01 10^3/uL (1.2-6.7); Basophils % 0.4 %; HCT 29.2 % (40.0-50.0); HGB 9.5 g/dL (13.5-17.5); Immature Grans % 0.8 %; MCH 32.6 pg (27.0-33.0); MCHC 32.5 % (32.0-36.0); MCV 100 fL (80-95); MPV 10.9 fL (8.0-11.0); Monocytes % 9.8 %; Platelet Count 161 10^3/uL (130-400); RBC 2.91 10^6/uL (4.36-5.78); RDW 17.2 % (11.8-14.1); RDW-SD 62.4 fL; WBC 5.01 10^3/uL (4.4-10.8)
[2024-02-07 08:46] LABS: ALT 32 U/L (16-63); AST 25 U/L (15-37); Albumin 3.2 g/dL (3.4-5.0); Alkaline Phosphatase 77 U/L (46-116); Anion Gap 4.1 mmol/L (3-11); BUN 30 mg/dL (7-18); CO2 28.9 mmol/L (21.0-32.0); CREATININE 1.3 mg/dL (0.70-1.30); Calcium 9.1 mg/dL (8.5-10.1); Chloride 106 mmol/L (98-107); Estimated GFR 57.65 (mL/min/1.73m2); Glucose 151 mg/dL (74-106); Potassium 4.4 mmol/L (3.5-5.1); Sodium 139 mmol/L (136-145); Total Protein 6.4 g/dL (6.4-8.2)
[2024-02-07 22:13] LABS: CA 19-9 54 U/mL (<35)
== END 2024-03-02 23:59 | disposition home or self-care (01) ==
LOC: INF 01:01
PROVIDERS: PCP Internal Medicine Hematology & Oncology; Visit Provider Internal Medicine Hematology & Oncology
DX: C22.1 Intrahepatic bile duct carcinoma (principal); C22.0 Liver cell carcinoma; Z79.899 Other long term (current) drug therapy
CPT/HCPCS: 80053; 83735; 85025; 86301

== ENCOUNTER 2024-04-02 02:38 | Outpatient (RCR) | payer OTHER, SELFPAY ==
[2024-03-03 00:09] VITALS: BP 128/66; PULSE 69; RESP 16; TEMP 36.4
[2024-03-13 07:49] LABS: Abs Immature Grans 0.02 10^3/uL (0.0-0.06); Absolute Basophil Count 0.02 10^3/uL (0.0-0.2); Absolute Eosinophil Count 0.34 10^3/uL (0.0-0.7); Absolute Lymphocyte Count 1.27 10^3/uL (1.2-3.4); Absolute Monocyte Count 0.44 10^3/uL (0.1-0.8); Absolute Neutrophil Count 3.75 10^3/uL (1.2-6.7); Basophils % 0.3 %; Eosinophils % 5.8 %; HCT 30.9 % (40.0-50.0); HGB 10.5 g/dL (13.5-17.5); Immature Grans % 0.3 %; Lymphocytes % 21.7 %; MCH 32.9 pg (27.0-33.0); MCV 97 fL (80-95); MPV 10.9 fL (8.0-11.0); Monocytes % 7.5 %; Neutrophils % 64.4 %; Platelet Count 136 10^3/uL (130-400); RBC 3.19 10^6/uL (4.36-5.78); RDW 14.5 % (11.8-14.1); WBC 5.84 10^3/uL (4.4-10.8)
[2024-03-13] MEDS: Normal Saline Flush 10 ML SYR IVP (08:08)
[2024-03-13 08:14] LABS: ALT 97 U/L (16-63); AST 77 U/L (15-37); Albumin 3.3 g/dL (3.4-5.0); Alkaline Phosphatase 186 U/L (46-116); Anion Gap 5.7 mmol/L (3-11); BUN 28 mg/dL (7-18); Bilirubin, Total 0.66 mg/dL (0.2-1.0); CO2 30.3 mmol/L (21.0-32.0); CREATININE 1.4 mg/dL (0.70-1.30); Calcium 9.2 mg/dL (8.5-10.1); Chloride 105 mmol/L (98-107); Estimated GFR 52.74 (mL/min/1.73m2); Glucose 167 mg/dL (74-106); Magnesium 1.7 mg/dL (1.8-2.4); Sodium 141 mmol/L (136-145); Total Protein 6.9 g/dL (6.4-8.2)
[2024-03-13 19:38] LABS: CA 19-9 63 U/mL (<35)
[2024-03-23] MEDS: Normal Saline Flush 10 ML SYR IVP (10:03)
[2024-03-23 10:42] LABS: ALT 138 U/L (16-63); AST 91 U/L (15-37); Albumin 3.1 g/dL (3.4-5.0); Alkaline Phosphatase 199 U/L (46-116); Anion Gap 5.6 mmol/L (3-11); BUN 32 mg/dL (7-18); CO2 29.4 mmol/L (21.0-32.0); CREATININE 1.6 mg/dL (0.70-1.30); Chloride 107 mmol/L (98-107); Estimated GFR 44.93 (mL/min/1.73m2); Glucose 148 mg/dL (74-106); Potassium 5.4 mmol/L (3.5-5.1); Sodium 142 mmol/L (136-145); Total Protein 6.6 g/dL (6.4-8.2)
[2024-03-27] MEDS: Normal Saline Flush 10 ML SYR IVP (09:49)
[2024-03-27 10:01] LABS: Abs Immature Grans 0.02 10^3/uL (0.0-0.06); Absolute Basophil Count 0.01 10^3/uL (0.0-0.2); Absolute Eosinophil Count 0.25 10^3/uL (0.0-0.7); Absolute Lymphocyte Count 0.73 10^3/uL (1.2-3.4); Absolute Monocyte Count 0.35 10^3/uL (0.1-0.8); Absolute Neutrophil Count 2.67 10^3/uL (1.2-6.7); Basophils % 0.2 %; Eosinophils % 6.2 %; HCT 26.9 % (40.0-50.0); HGB 8.7 g/dL (13.5-17.5); Immature Grans % 0.5 %; Lymphocytes % 18.1 %; MCH 33.2 pg (27.0-33.0); MCHC 32.3 % (32.0-36.0); MCV 103 fL (80-95); MPV 10.3 fL (8.0-11.0); Monocytes % 8.7 %; Neutrophils % 66.3 %; Platelet Count 152 10^3/uL (130-400); RBC 2.62 10^6/uL (4.36-5.78); RDW 15.4 % (11.8-14.1); RDW-SD 56.3 fL; WBC 4.03 10^3/uL (4.4-10.8)
[2024-03-27 10:20] LABS: ALT 115 U/L (16-63); AST 78 U/L (15-37); Albumin 3.1 g/dL (3.4-5.0); Alkaline Phosphatase 190 U/L (46-116); Anion Gap 5.9 mmol/L (3-11); BUN 25 mg/dL (7-18); Bilirubin, Total 0.37 mg/dL (0.2-1.0); CO2 26.1 mmol/L (21.0-32.0); CREATININE 1.4 mg/dL (0.70-1.30); Chloride 109 mmol/L (98-107); Estimated GFR 52.74 (mL/min/1.73m2); Glucose 155 mg/dL (74-106); Magnesium 1.9 mg/dL (1.8-2.4); Potassium 5.1 mmol/L (3.5-5.1); Sodium 141 mmol/L (136-145); Total Protein 6.6 g/dL (6.4-8.2)
[2024-03-27 18:28] LABS: CA 19-9 75 U/mL (<35)
[2024-04-02 13:39] LABS: ALT 125 U/L (16-63); AST 70 U/L (15-37); Albumin 3.4 g/dL (3.4-5.0); Alkaline Phosphatase 155 U/L (46-116); Anion Gap 5.1 mmol/L (3-11); BUN 33 mg/dL (7-18); Bilirubin, Total 0.39 mg/dL (0.2-1.0); CO2 28.9 mmol/L (21.0-32.0); CREATININE 1.5 mg/dL (0.70-1.30); Calcium 9.5 mg/dL (8.5-10.1); Chloride 108 mmol/L (98-107); Estimated GFR 48.25 (mL/min/1.73m2); Glucose 101 mg/dL (74-106); Sodium 142 mmol/L (136-145); Total Protein 7.1 g/dL (6.4-8.2)
[2024-04-02] MEDS: Normal Saline Flush 10 ML SYR IVP (13:55)
== END 2024-04-02 23:59 | disposition home or self-care (01) ==
LOC: INF 02:38
PROVIDERS: PCP Internal Medicine Hematology & Oncology; Visit Provider Internal Medicine Hematology & Oncology
DX: C22.0 Liver cell carcinoma (principal); C22.1 Intrahepatic bile duct carcinoma; Z45.2 Encounter for adjustment and management of vascular access device
CPT/HCPCS: 36591; 80053; 83735; 85025; 86301

== ENCOUNTER 2024-04-23 02:50 | Outpatient (RCR) | payer OTHER, SELFPAY ==
[2024-04-03 00:06] VITALS: BP 128/66; PULSE 69; RESP 16; TEMP 36.4
[2024-04-09] MEDS: Normal Saline Flush 10 ML SYR IVP (08:32)
[2024-04-09 08:46] LABS: Abs Immature Grans 0.01 10^3/uL (0.0-0.06); Absolute Basophil Count 0.01 10^3/uL (0.0-0.2); Absolute Eosinophil Count 0.07 10^3/uL (0.0-0.7); Absolute Lymphocyte Count 0.55 10^3/uL (1.2-3.4); Absolute Monocyte Count 0.32 10^3/uL (0.1-0.8); Absolute Neutrophil Count 1.32 10^3/uL (1.2-6.7); Basophils % 0.4 %; Eosinophils % 3.1 %; HCT 24.6 % (40.0-50.0); HGB 8.1 g/dL (13.5-17.5); Immature Grans % 0.4 %; Lymphocytes % 24.1 %; MCH 32.9 pg (27.0-33.0); MCHC 32.9 % (32.0-36.0); MCV 100 fL (80-95); MPV 10.3 fL (8.0-11.0); Platelet Count 119 10^3/uL (130-400); RBC 2.46 10^6/uL (4.36-5.78); RDW 15.4 % (11.8-14.1); WBC 2.28 10^3/uL (4.4-10.8)
[2024-04-09 09:00] LABS: ALT 153 U/L (16-63); AST 184 U/L (15-37); Albumin 3.1 g/dL (3.4-5.0); Alkaline Phosphatase 245 U/L (46-116); Anion Gap 7.5 mmol/L (3-11); BUN 28 mg/dL (7-18); Bilirubin, Total 0.75 mg/dL (0.2-1.0); CO2 25.5 mmol/L (21.0-32.0); CREATININE 1.3 mg/dL (0.70-1.30); Calcium 9.1 mg/dL (8.5-10.1); Chloride 108 mmol/L (98-107); Estimated GFR 57.29 (mL/min/1.73m2); Glucose 127 mg/dL (74-106); Magnesium 1.9 mg/dL (1.8-2.4); Potassium 4.7 mmol/L (3.5-5.1); Sodium 141 mmol/L (136-145); Total Protein 6.8 g/dL (6.4-8.2)
[2024-04-10] MEDS: diphenhydrAMINE 25 MG CAP PO (08:04)
[2024-04-10] MEDS: Acetaminophen 325 MG TAB 650 MG PO (08:05)
[2024-04-10] MEDS: Normal Saline Flush 10 ML SYR IVP (08:05)
[2024-04-10 08:20] VITALS: BP 178/92; PULSE 76; RESP 17; TEMP 36.3; O2SAT 99
[2024-04-10 08:35] VITALS: BP 170/85; PULSE 64; RESP 17; TEMP 36.5; O2SAT 99
[2024-04-10 08:45] VITALS: BP 160/83
[2024-04-10 08:54] VITALS: BP 160/70; PULSE 64; RESP 16; TEMP 36.5; O2SAT 99
[2024-04-10 09:20] VITALS: BP 166/79; PULSE 60; RESP 17; TEMP 36.2; O2SAT 100
[2024-04-10 09:24] LABS: CA 19-9 89 U/mL (<35)
[2024-04-10 10:05] VITALS: BP 170/77; PULSE 51; RESP 16; TEMP 36; O2SAT 100
--- NOTE | 2024-04-11 11:51 | SUR.INTRAOP ---
entered chart to send CT results to [facility]
== END 2024-05-02 23:59 | disposition home or self-care (01) ==
LOC: INF 02:50
PROVIDERS: PCP Internal Medicine Hematology & Oncology; Visit Provider Internal Medicine Hematology & Oncology
DX: C22.1 Intrahepatic bile duct carcinoma (principal); C22.0 Liver cell carcinoma
CPT/HCPCS: 36430; 36591; 80053; 86850; 86900; 86901; 86920; 96523; 83735; 85025; 86301; P9016

== ENCOUNTER 2024-05-21 02:06 | Outpatient (RCR) | payer OTHER, SELFPAY ==
[2024-05-03 00:04] VITALS: BP 128/66; PULSE 69; RESP 16; TEMP 36.4
[2024-05-07] MEDS: Normal Saline Flush 10 ML SYR IVP (08:24)
[2024-05-07 08:56] LABS: Abs Immature Grans 0.04 10^3/uL (0.0-0.06); Absolute Basophil Count 0.02 10^3/uL (0.0-0.2); Absolute Eosinophil Count 0.27 10^3/uL (0.0-0.7); Absolute Lymphocyte Count 1.03 10^3/uL (1.2-3.4); Absolute Monocyte Count 0.56 10^3/uL (0.1-0.8); Absolute Neutrophil Count 3.15 10^3/uL (1.2-6.7); Basophils % 0.4 %; Eosinophils % 5.3 %; HGB 9.7 g/dL (13.5-17.5); Immature Grans % 0.8 %; Lymphocytes % 20.3 %; MCH 31.4 pg (27.0-33.0); MCHC 31.3 % (32.0-36.0); MCV 100 fL (80-95); MPV 11.1 fL (8.0-11.0); Neutrophils % 62.2 %; Platelet Count 149 10^3/uL (130-400); RBC 3.09 10^6/uL (4.36-5.78); RDW 14.9 % (11.8-14.1); RDW-SD 55.9 fL; WBC 5.07 10^3/uL (4.4-10.8)
[2024-05-07 09:29] LABS: ALT 88 U/L (16-63); AST 82 U/L (15-37); Alkaline Phosphatase 187 U/L (46-116); Anion Gap 6.7 mmol/L (3-11); BUN 32 mg/dL (7-18); Bilirubin, Total 0.26 mg/dL (0.2-1.0); CO2 29.3 mmol/L (21.0-32.0); CREATININE 1.8 mg/dL (0.70-1.30); Calcium 8.9 mg/dL (8.5-10.1); Chloride 107 mmol/L (98-107); Estimated GFR 38.77 (mL/min/1.73m2); Glucose 162 mg/dL (74-106); Sodium 143 mmol/L (136-145); Total Protein 6.8 g/dL (6.4-8.2)
[2024-05-08 09:41] LABS: CA 19-9 113 U/mL (<35)
[2024-05-21 09:30] LABS: Abs Immature Grans 0.01 10^3/uL (0.0-0.06); Absolute Basophil Count 0.02 10^3/uL (0.0-0.2); Absolute Eosinophil Count 0.26 10^3/uL (0.0-0.7); Absolute Lymphocyte Count 0.99 10^3/uL (1.2-3.4); Absolute Monocyte Count 0.33 10^3/uL (0.1-0.8); Basophils % 0.5 %; HCT 29.7 % (40.0-50.0); HGB 9.5 g/dL (13.5-17.5); Immature Grans % 0.3 %; Lymphocytes % 26.7 %; MCH 31.9 pg (27.0-33.0); MCV 100 fL (80-95); MPV 10.5 fL (8.0-11.0); Monocytes % 8.9 %; Neutrophils % 56.6 %; Platelet Count 143 10^3/uL (130-400); RBC 2.98 10^6/uL (4.36-5.78); RDW 15.9 % (11.8-14.1); WBC 3.71 10^3/uL (4.4-10.8)
[2024-05-21] MEDS: Normal Saline Flush 10 ML SYR IVP (09:36)
[2024-05-21 09:46] LABS: ALT 72 U/L (16-63); AST 47 U/L (15-37); Albumin 3.1 g/dL (3.4-5.0); Alkaline Phosphatase 180 U/L (46-116); Anion Gap 5.2 mmol/L (3-11); BUN 33 mg/dL (7-18); Bilirubin, Total 0.29 mg/dL (0.2-1.0); CO2 30.8 mmol/L (21.0-32.0); CREATININE 1.6 mg/dL (0.70-1.30); Chloride 107 mmol/L (98-107); Estimated GFR 44.65 (mL/min/1.73m2); Glucose 171 mg/dL (74-106); Potassium 4.8 mmol/L (3.5-5.1); Sodium 143 mmol/L (136-145); Total Protein 6.6 g/dL (6.4-8.2)
[2024-05-22 10:54] LABS: CA 19-9 83 U/mL (<35)
== END 2024-06-02 23:59 | disposition home or self-care (01) ==
LOC: INF 02:06
PROVIDERS: PCP Internal Medicine Hematology & Oncology; Visit Provider Internal Medicine Hematology & Oncology
DX: C22.1 Intrahepatic bile duct carcinoma (principal); C22.0 Liver cell carcinoma; Z45.2 Encounter for adjustment and management of vascular access device
CPT/HCPCS: 36591; 80053; 83735; 85025; 86301

== ENCOUNTER 2024-05-21 13:20 | Emergency (ER) | payer OTHER, SELFPAY ==
[2024-05-21] VITALS (24 sets, daily range): BP systolic 152–179; BP diastolic 62–115; PULSE 57–72; RESP 14–22; TEMP 36.5; O2SAT 90–100
--- NOTE | 2024-05-21 13:15 | RT.EKG_ITS ---
APPROVED REPORT Exam: Resting ECG Reason for Exam: Allergic Reaction Patient Location: E HR:62 bpm ECG Measurements Heart Rate 62 AXIS AK 215 P 0 QRSd 84 QRS 16 QT 440 T 24 QTc 447 Conclusion Sinus rhythm...normal P axis, V-rate 60- 99 Borderline prolonged AK interval...AK >212, V-rate 50- 90
[2024-05-21] MEDS: EPINEPHrine 0.3 MG KIT IM (13:27)
[2024-05-21] MEDS: Famotidine 20 MG/2 ML VIAL IVP (13:27)
--- NOTE | 2024-05-21 14:40 | ED.GENADUL_ITS ---
Discharge Plan Disposition Patient Disposition: Home Condition: Stable Discharge Details Clinical Impression: Drug-induced anaphylaxis Primary Care Provider: Ricky East ED Provider: Claudio Perez Home Meds and New Rx's Prescriptions: New epinephrine [EpiPen] 0.3 mg/0.3 mL auto-injector 0.3 mg IM ONCE PRN (Reason: anaphylaxis) Qty: 1 0RF Rx Instructions: as a single dose; may repeat once Continued acyclovir 800 mg tablet 800 mg PO ONCE PRN allopurinol 100 mg tablet 100 mg PO ONCE PRN apixaban 5 mg tablet 5 mg PO BID bupropion HCl [Wellbutrin XL] 300 mg tablet extended release 24 hr 300 mg PO QAM colchicine 0.6 mg tablet 0.6 mg PO ONCE PRN gabapentin 300 mg capsule 300 mg PO DIRECTED Rx Instructions: Take 2 capsules BID. 1 tablet in the AM and 3 tablets in PM. magnesium oxide 400 mg magnesium capsule 400 mg PO BID metoprolol tartrate 25 mg tablet 50 mg PO BID ondansetron 8 mg tablet,disintegrating 8 mg PO TID PRN pantoprazole 40 mg tablet,delayed release (DR/EC) 40 mg PO DAILY Patient Comments: TAKE ONE TABLET BY MOUTH ONCE DAILY prednisone 20 mg tablet 40 mg PO DAILY prochlorperazine maleate 10 mg tablet 10 mg PO QID PRN Patient Comments: TAKE 1 TABLET BY MOUTH EVERY 6 HOURS NEEDED FOR NAUSEA ropinirole 4 mg tablet extended release 24 hr 4 mg PO DAILY PRN tamsulosin [Flomax] 0.4 mg capsule 0.4 mg PO DAILY torsemide 20 mg tablet 5 mg PO DAILY darbepoetin miracle in polysorbat 200 mcg/0.4 mL pen injector 200 mcg subcut .once] gemcitabine 100 mg/mL solution 1,200 mg IV ONCE Discontinued cisplatin 1 mg/mL solution 12.5 mg IV ONCE Discharge Instructions Instructions: Anaphylaxis - Discharge instructions Additional Instructions: Please take Benadryl (diphenhydramine) 50 mg every 8 hours for the next 3 days. Use EpiPen as prescribed if you have another anaphylactic allergic reaction with difficulty breathing. Please contact your primary care physician to arrange follow-up. Return to the ER immediately for any worsening or new concerning symptoms. Referrals: Ricky East MD [Primary Care Provider] - Discharge Data Discharge Date/Time-TO BE ENTERED AT DEPARTURE: 05/21/24 15:56 HPI General Mode of arrival: EMS . Date/Time Provider Initiated Documentation: 05/21/24 13:21 . Limitations to Documentation: no limitations . Information obtained by: patient and family . HPI Narrative: 74-year-old male presents from cancer treatment center with concern for a naphylaxis. Patient was receiving infusion of cisplatin when he developed full body itching, swollen tongue, shortness of breath. He was given Benadryl 50 mg and dexamethasone 10 mg. He continues to have symptoms. Patient has received multiple doses of cisplatin in the past and has not had any reaction. Related Data Home Medications ?Medication ?Instructions ?Recorded ?Confirmed acyclovir 800 mg tablet 800 mg PO ONCE PRN 05/21/24 05/21/24 allopurinol 100 mg tablet 100 mg PO ONCE PRN 05/21/24 05/21/24 apixaban 5 mg tablet 5 mg PO BID 05/21/24 05/21/24 bupropion HCl 300 mg 24 hr tablet, 300 mg PO QAM 05/21/24 05/21/24 extended release (Wellbutrin XL) colchicine 0.6 mg tablet 0.6 mg PO ONCE PRN 05/21/24 05/21/24 darbepoetin miracle in polysorbat 200 200 mcg subcut .once] 05/21/24 05/21/24 mcg/0.4 mL (polysorb) subcutaneous pen injector epinephrine 0.3 mg/0.3 mL 0.3 mg (0.3 mL) IM ONCE PRN 05/21/24 injection, auto-injector (EpiPen) anaphylaxis #1 ea gabapentin 300 mg capsule 300 mg PO DIRECTED 05/21/24 05/21/24 gemcitabine 100 mg/mL intravenous 1,200 mg IV ONCE 05/21/24 05/21/24 solution magnesium oxide 400 mg PO BID 05/21/24 05/21/24 metoprolol tartrate 25 mg tablet 50 mg PO BID 05/21/24 05/21/24 ondansetron 8 mg disintegrating 8 mg PO TID PRN 05/21/24 05/21/24 tablet pantoprazole 40 mg tablet,delayed 40 mg PO DAILY 05/21/24 05/21/24 release prednisone 20 mg tablet 40 mg PO DAILY 05/21/24 05/21/24 prochlorperazine maleate 10 mg 10 mg PO QID PRN 05/21/24 05/21/24 tablet ropinirole 4 mg tablet,extended 4 mg PO DAILY PRN 05/21/24 05/21/24 release 24 hr tamsulosin 0.4 mg capsule (Flomax) 0.4 mg PO DAILY 05/21/24 05/21/24 torsemide 20 mg tablet 5 mg PO DAILY 05/21/24 05/21/24 Previous Rx's ?Medication ?Instructions ?Recorded epinephrine 0.3 mg/0.3 mL 0.3 mg (0.3 mL) IM ONCE PRN 05/21/24 injection, auto-injector (EpiPen) anaphylaxis #1 ea Allergies Allergy/AdvReac Type Severity Reaction Status Date / Time cisplatin Allergy Severe Anaphylaxis Verified 05/21/24 13:34 General Stated Complaint: Allergic CHARMAINE: 2 Review of Systems All systems reviewed & are unremarkable except as noted in HPI and below Cardiovascular Cardiovascular: Reports dyspnea Respiratory Respiratory: Reports dyspnea Exam Const General: cooperative and no acute distress HENMT Mouth: moist mucous membranes and tongue abnormal (swelling) Throat: posterior oropharynx normal Eyes Conjunctivae: normal conjunctivae Sclera: normal sclerae Neck Neck: trachea midline Resp Auscultation: clear to auscultation bilaterally, no rales, no rhonchi and no wheezes Cardio Rate: regular rate and not tachycardic Rhythm: regular rhythm GI Palpation: soft, not firm, no guarding, no masses, not rigid and nontender Skin Rashes: rashes noted (uriticarial rash diffuse body) Neuro General: patient alert, patient awake, patient oriented x3 and tone normal Extrem General: no edema Psych Appearance: grossly normal Course Vital Signs Vital signs: Vital Signs Temperature 36.5 C 05/21/24 13:20 Pulse 62 05/21/24 13:20 Respiratory Rate 14 05/21/24 13:20 Blood Pressure 152/104 H 05/21/24 13:20 Pulse Oximetry 100 05/21/24 13:20 Temperature 36.5 C 05/21/24 13:20 Temperature Source Tympanic 05/21/24 13:20 Pulse 60 05/21/24 14:32 Pulse 61 05/21/24 14:30 Respiratory Rate 14 05/21/24 14:30 Respiratory Effort Normal, Non-Labored, Short of Breath 12/19/24 13:52 Respiratory Pattern Normal 05/21/24 13:52 Blood Pressure 176/62 H 05/21/24 14:32 Blood Pressure Mean 103 05/21/24 14:32 Pulse Oximetry 97 05/21/24 14:30 Oxygen Delivery Method Room Air 05/21/24 13:20 Oxygen Flow Rate 0 05/21/24 13:20 Pain Level 0 05/21/24 13:20 Medical Decision Making -- Patient in critical condition on arrival and seen immediately on arrival. 74yo male here with anaphylactic reaction that developed during cisplatin infusion. Patient does have tongue swelling and shortness of breath. He saturating well in no respiratory distress. He does have garbled speech but is maintaining airway. Patient was given Decadron and Benadryl prior to arrival. I will give Pepcid 20 mg IV and epinephrine IM. 1445 --patient reassessed and rash resolved. Tongue swelling resolved. Patient notes feeling much better. 153 --patient reassessed and remains stable. Plan for discharge. Usual and customary discharge instructions were reviewed. Plan for continued Benadryl and I will write for EpiPen. Usual and customary discharge instructions were reviewed. Quality:[facility] Related Social Needs: No Data to Display Critical Care Time Critical Care Time Critical Care Time: Yes Total Critical Care Time: 50 Attestation: I spent greater than 50 minutes addressing this patient's immediate life threats. Please see MDM section of note. This time was spent engaged in work directly related to the patient's care, exclusive of separate procedures, and failure to initiate these interventions would have likely resulted in clinically significant or life threatening deterioration in the patient's condition. PFSH All Active Problems (Updated 05/21/24 @ 15:40 by Claudio Perez MD) Drug-induced anaphylaxis (Acute) Social History Smoking/Tobacco Use Status: Never Smoking risk assessment performed?: Yes Alcohol Intake: never Substance use type: does not use Housing: house Do you feel safe at home: Yes Do you feel safe in your relationship?: Yes Additional Social history: at side, very supportive
--- NOTE | 2024-05-25 11:25 | NUR.NOTE ---
Patient called stating that he had his hearing aids in his shirt pocked when he came in. He now doesn't have them. We checked our lost and found and called Security and no one has them. Patient called and is aware. Gave the patient the phone number to MARY BETH who transported patient to the ED. Nursing Note:
== END 2024-05-21 15:56 | disposition home or self-care (01) ==
PROVIDERS: Emergency Provider Student in an Organized Health Care Education/Training Program; PCP Internal Medicine Hematology & Oncology
DX: T45.1X5A Adverse effect of antineoplastic and immunosuppressive drugs, initial encounter (principal); T88.6XXA Anaphylactic reaction due to adverse effect of correct drug or medicament properly administered, initial encounter; Z79.01 Long term (current) use of anticoagulants; Y92.531 Health care provider office as the place of occurrence of the external cause
CPT/HCPCS: 93005; 96372; 96374; 99284; 93010; J0171

== ENCOUNTER 2024-07-02 03:27 | Outpatient (RCR) | payer OTHER, SELFPAY ==
[2024-06-03 00:04] VITALS: BP 128/66; PULSE 69; RESP 16; TEMP 36.4
[2024-06-04] MEDS: Normal Saline Flush 10 ML SYR IVP (08:36)
[2024-06-04 08:46] LABS: Abs Immature Grans 0.01 10^3/uL (0.0-0.06); Absolute Basophil Count 0.01 10^3/uL (0.0-0.2); Absolute Eosinophil Count 0.17 10^3/uL (0.0-0.7); Absolute Lymphocyte Count 0.94 10^3/uL (1.2-3.4); Absolute Monocyte Count 0.56 10^3/uL (0.1-0.8); Absolute Neutrophil Count 1.95 10^3/uL (1.2-6.7); Basophils % 0.3 %; Eosinophils % 4.7 %; HCT 30.4 % (40.0-50.0); HGB 9.7 g/dL (13.5-17.5); Immature Grans % 0.3 %; Lymphocytes % 25.8 %; MCH 32.3 pg (27.0-33.0); MCHC 31.9 % (32.0-36.0); MCV 101 fL (80-95); MPV 10.6 fL (8.0-11.0); Monocytes % 15.4 %; Neutrophils % 53.5 %; Platelet Count 131 10^3/uL (130-400); RDW 16.7 % (11.8-14.1); RDW-SD 62.5 fL; WBC 3.64 10^3/uL (4.4-10.8)
[2024-06-04 09:03] LABS: ALT 106 U/L (16-63); AST 80 U/L (15-37); Alkaline Phosphatase 279 U/L (46-116); Anion Gap 8.8 mmol/L (3-11); BUN 23 mg/dL (7-18); Bilirubin, Total 0.49 mg/dL (0.2-1.0); CO2 27.2 mmol/L (21.0-32.0); CREATININE 1.8 mg/dL (0.70-1.30); Calcium 8.9 mg/dL (8.5-10.1); Chloride 105 mmol/L (98-107); Estimated GFR 38.77 (mL/min/1.73m2); Glucose 203 mg/dL (74-106); Magnesium 1.7 mg/dL (1.8-2.4); Potassium 4.4 mmol/L (3.5-5.1); Sodium 141 mmol/L (136-145); Total Protein 6.3 g/dL (6.4-8.2)
[2024-06-05 09:54] LABS: CA 19-9 90 U/mL (<35)
[2024-06-11] MEDS: Normal Saline Flush 10 ML SYR IVP (14:45)
[2024-06-11 15:02] LABS: Abs Immature Grans 0.18 10^3/uL (0.0-0.06); HCT 32.6 % (40.0-50.0); HGB 10.7 g/dL (13.5-17.5); MCH 32.2 pg (27.0-33.0); MCHC 32.8 % (32.0-36.0); MCV 98 fL (80-95); MPV 9.3 fL (8.0-11.0); Nucleated RBC 1.1 % (0.0-0.3); Platelet Count 175 10^3/uL (130-400); RBC 3.32 10^6/uL (4.36-5.78); RDW 15.3 % (11.8-14.1); RDW-SD 55.6 fL; WBC 2.62 10^3/uL (4.4-10.8)
[2024-06-11 15:12] LABS: ALT 189 U/L (16-63); AST 165 U/L (15-37); Albumin 3.6 g/dL (3.4-5.0); Alkaline Phosphatase 476 U/L (46-116); Anion Gap 4.9 mmol/L (3-11); BUN 33 mg/dL (7-18); Bilirubin, Total 0.63 mg/dL (0.2-1.0); CO2 30.1 mmol/L (21.0-32.0); CREATININE 1.6 mg/dL (0.70-1.30); Calcium 9.6 mg/dL (8.5-10.1); Chloride 106 mmol/L (98-107); Estimated GFR 44.65 (mL/min/1.73m2); Glucose 102 mg/dL (74-106); Potassium 4.7 mmol/L (3.5-5.1); Sodium 141 mmol/L (136-145); Total Protein 7.6 g/dL (6.4-8.2)
[2024-06-11 15:34] LABS: Absolute Basophil Count 0.03 10^3/uL (0.0-0.2); Absolute Eosinophil Count 0.03 10^3/uL (0.0-0.7); Absolute Lymphocyte Count 1.26 10^3/uL (1.2-3.4); Absolute Monocyte Count 0.26 10^3/uL (0.1-0.8); Absolute Neutrophil Count 0.94 10^3/uL (1.2-6.7); Diff Comment Manual Differential; Metamyelocytes % 2; Myelocytes % 2; RBC Morphology Normal
[2024-06-18] MEDS: Normal Saline Flush 10 ML SYR IVP (08:30)
[2024-06-18 09:41] LABS: HCT 31.6 % (40.0-50.0); HGB 10.1 g/dL (13.5-17.5); MCH 32.2 pg (27.0-33.0); MCV 101 fL (80-95); MPV 10.6 fL (8.0-11.0); Platelet Count 208 10^3/uL (130-400); RBC 3.14 10^6/uL (4.36-5.78); RDW 15.9 % (11.8-14.1); WBC 4.35 10^3/uL (4.4-10.8)
[2024-06-18 09:58] LABS: ALT 129 U/L (16-63); AST 113 U/L (15-37); Albumin 3.1 g/dL (3.4-5.0); Alkaline Phosphatase 349 U/L (46-116); Anion Gap 3.3 mmol/L (3-11); BUN 26 mg/dL (7-18); Bilirubin, Total 0.47 mg/dL (0.2-1.0); CO2 31.7 mmol/L (21.0-32.0); CREATININE 1.5 mg/dL (0.70-1.30); Calcium 9.1 mg/dL (8.5-10.1); Chloride 107 mmol/L (98-107); Estimated GFR 48.25 (mL/min/1.73m2); Glucose 146 mg/dL (74-106); Magnesium 1.9 mg/dL (1.8-2.4); Potassium 4.5 mmol/L (3.5-5.1); Sodium 142 mmol/L (136-145); Total Protein 6.9 g/dL (6.4-8.2)
[2024-06-18 10:26] LABS: Abs Immature Grans 0.03 10^3/uL (0.0-0.06); Absolute Basophil Count 0.02 10^3/uL (0.0-0.2); Absolute Eosinophil Count 0.29 10^3/uL (0.0-0.7); Absolute Lymphocyte Count 0.94 10^3/uL (1.2-3.4); Absolute Monocyte Count 0.78 10^3/uL (0.1-0.8); Absolute Neutrophil Count 2.38 10^3/uL (1.2-6.7); Basophils % 0.5 %; Eosinophils % 6.5 %; Immature Grans % 0.7 %; Lymphocytes % 21.2 %; Monocytes % 17.6 %; Neutrophils % 53.5 %
[2024-06-19 08:25] LABS: CA 19-9 96 U/mL (<35)
[2024-07-02] MEDS: Normal Saline Flush 10 ML SYR IVP (09:39)
[2024-07-02 10:00] LABS: Abs Immature Grans 0.09 10^3/uL (0.0-0.06); Absolute Basophil Count 0.02 10^3/uL (0.0-0.2); Absolute Eosinophil Count 0.33 10^3/uL (0.0-0.7); Absolute Lymphocyte Count 0.77 10^3/uL (1.2-3.4); Absolute Monocyte Count 0.89 10^3/uL (0.1-0.8); Absolute Neutrophil Count 4.83 10^3/uL (1.2-6.7); Basophils % 0.3 %; Eosinophils % 4.8 %; HCT 28.5 % (40.0-50.0); HGB 9.4 g/dL (13.5-17.5); Immature Grans % 1.3 %; Lymphocytes % 11.1 %; MCH 31.9 pg (27.0-33.0); MCV 97 fL (80-95); MPV 10.3 fL (8.0-11.0); Monocytes % 12.8 %; Neutrophils % 69.7 %; Platelet Count 210 10^3/uL (130-400); RBC 2.95 10^6/uL (4.36-5.78); RDW 15.6 % (11.8-14.1); RDW-SD 54.5 fL; WBC 6.93 10^3/uL (4.4-10.8)
[2024-07-02 10:17] LABS: ALT 78 U/L (16-63); AST 47 U/L (15-37); Albumin 2.8 g/dL (3.4-5.0); Alkaline Phosphatase 272 U/L (46-116); BUN 29 mg/dL (7-18); Bilirubin, Total 0.78 mg/dL (0.2-1.0); CREATININE 1.7 mg/dL (0.70-1.30); Calcium 8.4 mg/dL (8.5-10.1); Chloride 102 mmol/L (98-107); Estimated GFR 41.52 (mL/min/1.73m2); Glucose 216 mg/dL (74-106); Magnesium 2.1 mg/dL (1.8-2.4); Potassium 4.7 mmol/L (3.5-5.1); Sodium 135 mmol/L (136-145); Total Protein 6.6 g/dL (6.4-8.2)
[2024-07-03 10:37] LABS: CA 19-9 121 U/mL (<35)
== END 2024-07-03 23:59 | disposition home or self-care (01) ==
LOC: INF 03:27
PROVIDERS: Nurse Practitioner Family; PCP Internal Medicine Hematology & Oncology; Visit Provider Internal Medicine Hematology & Oncology
DX: C22.1 Intrahepatic bile duct carcinoma (principal); C22.0 Liver cell carcinoma
CPT/HCPCS: 36591; 80053; 85027; 83735; 85007; 85025; 86301

== ENCOUNTER 2024-07-16 10:58 | Inpatient (IN) | payer OTHER, SELFPAY ==
[2024-07-16] VITALS (14 sets, daily range): BP systolic 130–177; BP diastolic 53–82; PULSE 75–107; RESP 12–22; TEMP 37.3–38.4; O2SAT 88–96
--- NOTE | 2024-07-16 11:00 | RT.EKG_ITS ---
APPROVED REPORT Exam: Resting ECG Reason for Exam: SOB Patient Location: E HR:102 bpm ECG Measurements Heart Rate 102 AXIS AL 216 P 69 QRSd 79 QRS 28 QT 330 T 105 QTc 430 Conclusion Sinus tachycardia, rate 102 No significant interval abnormalities T wave inversion/flattening I, aVL, new from priors No STEMI
--- NOTE | 2024-07-16 11:15 | DI.CT_ITS ---
Exam(s) CT CHEST PE CTA EXAM: CT CHEST PE CTA CLINICAL HISTORY: cough, hypoxia, active CA. TECHNIQUE: Imaging Protocol: CT angiography of the chest was performed using pulmonary embolus roshni col. Multi planar reconstructions were performed. CONTRAST MATERIAL: Intravenous: Omnipaque 350 Contrast volume: [address] ABD PELVIS WITH CONTRAST from 06/20/[address] CHEST/ABD/PEL W from 07/15/2024 FINDINGS: CHEST: PULMONARY ARTERIES: There are no intraluminal filling defects to suggest acute pulmonary emboli. LUNGS: There are ground-glass infiltrates again noted in both upper lobes, appearing similar to yeste rday's scan. Lesser amount of the same is also noted in the left lower lobe. There are no pleural e ffusions.. No significant focal findings in the trachea and mainstem bronchi. MEDIASTINUM: There is no hilar nor mediastinal adenopathy. Partially visualized thyroid appears unrem arkable. CARDIAC: Heart size is upper normal. There is no pericardial effusion.Caliber of the thoracic aorta is within upper normal limits. No evidence of aortic dissection. No contrast reflux into the intrahe patic IVC. There is no significant shift of the interventricular septum. PARTIALLY VISUALIZED UPPERMOST ABDOMEN: See yesterday's CT scan the abdomen report OSSEOUS: No significant osseous lesions.No fractures.. Distal tip of the Port-A-Cath is in the right atrium IMPRESSION: 1. No evidence of acute pulmonary emboli nor evidence of of pulmonary infarction. 2. However, there are bilateral ground-glass infiltrates involving predominately both upper lobes als o mild involvement of lower lobes. No pleural effusions. 3. Previously described solitary subpleural noncalcified nodule in the left lower lobe is unchanged, measuring 6-7 mm is again noted. This appears stable compared to prior CT scans dating back to 2023. RADIATION DOSE DELIVERED: 134.89mGy.cm Total DLP DATA REPOSITORY: All CT scans at this facility are submitted to the National Radiology Data Registry (NRDR) Dose Index Registry (DIR) with the [employer] (ACR). RADIATION OPTIMIZATION: All CT scans at this facility use at least one of these dose optimization te chniques: automated exposure control; mA and/or kV adjustment per patient size (includes targeted exa ms where dose is matched to clinical indication); or iterative reconstruction.
--- NOTE | 2024-07-16 11:19 | W.ED.GENAD ---
Discharge Plan Disposition Patient Disposition: Admit to [facility] Condition: Stable Discharge Details Clinical Impression: Sepsis Primary Care Provider: Ricky East ED Provider: Mathieu Yanes Home Meds and New Rx's Prescriptions: No Action acyclovir 800 mg tablet 800 mg PO ONCE PRN allopurinol 100 mg tablet 100 mg PO ONCE PRN apixaban 5 mg tablet 5 mg PO BID bupropion HCl [Wellbutrin XL] 300 mg tablet extended release 24 hr 300 mg PO QAM colchicine 0.6 mg tablet 0.6 mg PO ONCE PRN gabapentin 300 mg capsule 300 mg PO DIRECTED Rx Instructions: Take 2 capsules BID. 1 tablet in the AM and 3 tablets in PM. magnesium oxide 400 mg magnesium capsule 400 mg PO BID metoprolol tartrate 25 mg tablet 50 mg PO BID ondansetron 8 mg tablet,disintegrating 8 mg PO TID PRN pantoprazole 40 mg tablet,delayed release (DR/EC) 40 mg PO DAILY Patient Comments: TAKE ONE TABLET BY MOUTH ONCE DAILY prednisone 20 mg tablet 40 mg PO DAILY prochlorperazine maleate 10 mg tablet 10 mg PO QID PRN Patient Comments: TAKE 1 TABLET BY MOUTH EVERY 6 HOURS NEEDED FOR NAUSEA ropinirole 4 mg tablet extended release 24 hr 4 mg PO DAILY PRN tamsulosin [Flomax] 0.4 mg capsule 0.4 mg PO DAILY torsemide 20 mg tablet 5 mg PO DAILY darbepoetin miracle in polysorbat 200 mcg/0.4 mL pen injector 200 mcg subcut .once] gemcitabine 100 mg/mL solution 1,200 mg IV ONCE epinephrine [EpiPen] 0.3 mg/0.3 mL auto-injector 0.3 mg IM ONCE PRN (Reason: anaphylaxis) Qty: 1 0RF Rx Instructions: as a single dose; may repeat once HPI General Date/Time Provider Initiated Documentation: 07/16/24 11:02. HPI Narrative: 74 year-old male presents to ED today by POV/ambulating with a chief complaint of generalized malaise, shortness of breath, intermittent fevers- recommended to present by Cancer Center for his symptoms with onset for a week or more. Quality described as shortness of breath as worst symptom- was 88% SpO2 on arrival, no radiation to active or productive cough, chest pain, abdominal pain beyond baseline, black/bloody stools, syncope. Severity is described as moderate. Palliating factors include does take subtherapeutic Tylenol. Provoking factors include nothing specific. Events leading up to the incident/Associated Symptoms: Patient has had recurrent E. coli bacteremia over the past 6 months. Patient is anticoagulated on Eliquis. Related Data Home Medications ?Medication ?Instructions ?Recorded ?Confirmed acyclovir 800 mg tablet 800 mg PO ONCE PRN 05/21/24 07/16/24 allopurinol 100 mg tablet 100 mg PO ONCE PRN 05/21/24 07/16/24 apixaban 5 mg tablet 5 mg PO BID 05/21/24 07/16/24 bupropion HCl 300 mg 24 hr tablet, 300 mg PO QAM 05/21/24 07/16/24 extended release (Wellbutrin XL) colchicine 0.6 mg tablet 0.6 mg PO ONCE PRN 05/21/24 07/16/24 darbepoetin miracle in polysorbat 200 200 mcg subcut .once] 05/21/24 07/16/24 mcg/0.4 mL (polysorb) subcutaneous pen injector epinephrine 0.3 mg/0.3 mL 0.3 mg (0.3 mL) IM ONCE PRN 05/21/24 07/16/24 injection, auto-injector (EpiPen) anaphylaxis #1 ea gabapentin 300 mg capsule 300 mg PO DIRECTED 05/21/24 07/16/24 gemcitabine 100 mg/mL intravenous 1,200 mg IV ONCE 05/21/24 07/16/24 solution magnesium oxide 400 mg PO BID 05/21/24 07/16/24 metoprolol tartrate 25 mg tablet 50 mg PO BID 05/21/24 07/16/24 ondansetron 8 mg disintegrating 8 mg PO TID PRN 05/21/24 07/16/24 tablet pantoprazole 40 mg tablet,delayed 40 mg PO DAILY 05/21/24 07/16/24 release prednisone 20 mg tablet 40 mg PO DAILY 05/21/24 07/16/24 prochlorperazine maleate 10 mg 10 mg PO QID PRN 05/21/24 07/16/24 tablet ropinirole 4 mg tablet,extended 4 mg PO DAILY PRN 05/21/24 07/16/24 release 24 hr tamsulosin 0.4 mg capsule (Flomax) 0.4 mg PO DAILY 05/21/24 07/16/24 torsemide 20 mg tablet 5 mg PO DAILY 05/21/24 07/16/24 Previous Rx's ?Medication ?Instructions ?Recorded epinephrine 0.3 mg/0.3 mL 0.3 mg (0.3 mL) IM ONCE PRN 05/21/24 injection, auto-injector (EpiPen) anaphylaxis #1 ea Allergies Allergy/AdvReac Type Severity Reaction Status Date / Time cisplatin Allergy Severe Anaphylaxis Verified 07/16/24 11:18 sotalol AdvReac Severe bradycardia Verified 07/16/24 11:18 General Stated Complaint: Fever CHARMAINE: 3 Review of Systems All systems reviewed & are unremarkable except as noted in HPI and below Exam Narrative Exam Narrative: GENERAL APPEARANCE: Well-nourished, toxic, awake and alert, atraumatic, mild acute distress. SKIN: Warm, pink, dry, intact, without rashes/lesions/ulcerations. HEAD: Normocephalic, atraumatic, normal hair distribution for gender/age. EYES: Normal conjunctiva, no exudates on lids/lashes. ENT: Nares patent, no circumoral cyanosis, no facial swelling NECK: Supple, trachea midline, painless cervical ROM. LUNGS/CHEST: Lungs CTA bilaterally-no rhonchi/rales/wheezes diffusely, non-labored respirations, normal A/P diameter, symmetrical expansion, no chest wall deformity HEART (CV/PV): Regular rate and rhythm without murmur, no peripheral edema, no JVD. ABDOMEN: Soft, non-distended, no guarding, no epigastric tenderness, no right upper quadrant tenderness or Veliz sign. MSK: Normal ROM, no swelling/deformity to bilateral UEs or LEs, moving all extremities without weakness, no cyanosis, spine midline without tenderness, normal curvature. NEURO: Mental Status AAOx4 - alert to person, place, time, events No facial droop, no forehead involvement. Motor: No focal weakness - strength 5/5 in bilateral UEs and LEs, proximal and distal, symmetric. Sensory: sensation intact to light touch globally. Gait normal: patient ambulated without ataxia into ED room. PSYCH: euthymic, cooperative, pleasant, appropriate speech Course Vital Signs Vital signs: Vital Signs Temperature 37.8 C H 07/16/24 11:08 Pulse 107 H 07/16/24 11:08 Respiratory Rate 22 07/16/24 11:08 Blood Pressure 167/78 H 07/16/24 11:08 Pulse Oximetry 88 L 07/16/24 11:08 Temperature 37.8 C H 07/16/24 11:08 Temperature Source Oral 07/16/24 11:08 Pulse 107 H 07/16/24 11:08 Respiratory Rate 22 07/16/24 11:08 Blood Pressure 167/78 H 07/16/24 11:08 Blood Pressure Position Sitting 07/16/24 11:08 Pulse Oximetry 88 L 07/16/24 11:08 Oxygen Delivery Method Room Air 07/16/24 11:08 Oxygen Flow Rate 0 07/16/24 11:08 Medical Decision Making This dictation utilizes [id number] dictation software and may contain unedited grammatical errors. 74 year-old male presents to ED today by POV/ambulating with a chief complaint of generalized malaise, shortness of breath, intermittent fevers- recommended to present by Cancer Center for his symptoms with onset for a week or more. Quality described as shortness of breath as worst symptom- was 88% SpO2 on arrival, no radiation to active or productive cough, chest pain, abdominal pain beyond baseline, black/bloody stools, syncope. Severity is described as moderate. Palliating factors include does take subtherapeutic Tylenol. Provoking factors include nothing specific. Events leading up to the incident/Associated Symptoms: Patient has had recurrent E. coli bacteremia over the past 6 months. Patients' medical history: Immune suppressed, cholangiocarcinoma receiving active chemo, anemia. Family and social history: Noncontributory, lives at home with his , no recent travel or sick contacts. Pertinent exam findings / vital signs include lungs CTA, no Veliz sign or right upper quadrant tenderness, mildly hypoxic, no CVA tenderness percussion bilaterally, febrile on arrival. Differential / pathologies of concern include sepsis, pneumonia, pulmonary embolism, ACS, heart failure, malignancy spread. Diagnostic studies of: -CBC, CMP, CRP, magnesium, BNP, serial troponins, lipase, procalcitonin, COVID/flu/RSV PCR, lactate, EKG, CTA chest PE study, blood cultures. -CBC shows no leukocytosis but the patient is immune suppressed, does show chronic stable anemia, he has a left shift with 1.1% immature granulocytes -CMP shows mild hyponatremia, mild dehydration -Magnesium within normal limits -Serial troponins negative -CRP is 7.4 -BNP is 747 without reference -Lipase within normal limits -COVID/flu/RSV negative -EKG shows some ST depressions and T wave inversions new since his last EKG, otherwise no ischemic changes no ST elevations or reciprocal depressions, normal intervals -CT chest shows no PE, does show the new bilateral groundglass infiltrate seen on his surveillance CT chest abdomen pelvis yesterday Interventions of: -650 mg acetaminophen, 2 g ceftriaxone, 500 mg azithromycin. Started IVF NS @ 150mL/hr - with patients BNP elevation I am cautious to give a 30cc/kg IBW bolus and the patient appears relatively stable with improvement of SpO2, no hypotension. -Consulted with hospitalist Dr. Kennedy at 1345 accepted for admission for sepsis ED Course/Assessment/Plan: 74-year-old male who is immune suppressed on active chemotherapy for cholangiocarcinoma had routine CTs yesterday which showed groundglass opacities in bilateral apicitis, has been having profound shortness of breath and weakness without cough. CTA of the chest is negative for PE today he does have a left shift on his blood work with significantly elevated CRP likely septic, has had bouts of E. coli bacteremia repeatedly over the last 6 months, I did cover him empirically for pneumonia with ceftriaxone and azithromycin, patient is admitted to [facility] at [address] Kennedy for continued care. Disposition of Sepsis. Patient verbalized understanding of the plan and return to ED criteria and engaged in shared decision making. Medical Records Medical records reviewed: Yes I reviewed the patient's medical records. Imaging Data Radiologic Study: Attestation: I personally reviewed and interpreted this imaging study as follows: Imaging: CT Scan Radiologist's impression: EXAM: CT CHEST PE CTA CLINICAL HISTORY: cough, hypoxia, active CA. TECHNIQUE: Imaging Protocol: CT angiography of the chest was performed using pulmonary embolus protocol. Multi planar reconstructions were performed. CONTRAST MATERIAL: Intravenous: Omnipaque 350 Contrast volume: [address] ABD PELVIS WITH CONTRAST from 06/20/[address] CHEST/ABD/PEL W from 07/15/2024 FINDINGS: CHEST: PULMONARY ARTERIES: There are no intraluminal filling defects to suggest acute pulmonary emboli. LUNGS: There are ground-glass infiltrates again noted in both upper lobes, appearing similar to yesterday's scan. Lesser amount of the same is also noted in the left lower lobe. There are no pleural effusions.. No significant focal findings in the trachea and mainstem bronchi. MEDIASTINUM: There is no hilar nor mediastinal adenopathy. Partially visualized thyroid appears unremarkable. CARDIAC: Heart size is upper normal. There is no pericardial effusion.Caliber of the thoracic aorta is within upper normal limits. No evidence of aortic dissection. No contrast reflux into the intrahepatic IVC. There is no significant shift of the interventricular septum. PARTIALLY VISUALIZED UPPERMOST ABDOMEN: See yesterday's CT scan the abdomen report OSSEOUS: No significant osseous lesions.No fractures.. Distal tip of the Port-A-Cath is in the right atrium IMPRESSION: 1. No evidence of acute pulmonary emboli nor evidence of of pulmonary infarction. 2. However, there are bilateral ground-glass infiltrates involving predominately both upper lobes also mild involvement of lower lobes. No pleural effusions. 3. Previously described solitary subpleural noncalcified nodule in the left lower lobe is unchanged, measuring 6-7 mm is again noted. This appears stable compared to prior CT scans dating back to June 2023. Lab Data Lab results reviewed: Yes I reviewed the patient's lab results. Labs: 07/16/24 11:50 Blood Blood Culture - Pending 07/16/24 11:35 Blood Blood Culture - Pending Laboratory Tests Range/Units 07/16/24 07/16/24 07/16/24 11:15 11:35 12:31 WBC (4.4-10.8) 10^3/uL 7.45 RBC (4.36-5.78) 10^6/uL 2.82 L Hgb (13.5-17.5) g/dL 8.9 L Hct (40.0-50.0) % 27.3 L MCV (80-95) fL 97 H MCH (27.0-33.0) pg 31.6 MCHC (32.0-36.0) % 32.6 RDW (11.8-14.1) % 14.7 H Plt Count (130-400) 10^3/uL 278 MPV (8.0-11.0) fL 9.7 Immature Gran % % 1.1 Neutrophils % % 75.0 Lymphocytes % % 8.1 Monocytes % % 11.4 Eosinophils % % 4.3 Basophils % % 0.1 Nucleated RBC % (0.0-0.3) % 0.0 Absolute Neutrophils (1.2-6.7) 10^3/uL 5.59 Absolute Lymphocytes (1.2-3.4) 10^3/uL 0.60 L Absolute Monocytes (0.1-0.8) 10^3/uL 0.85 H Absolute Eosinophils (0.0-0.7) 10^3/uL 0.32 Absolute Basophils (0.0-0.2) 10^3/uL 0.01 Sodium (136-145) mmol/L 134 L Potassium (3.5-5.1) mmol/L 4.8 Chloride (98-107) mmol/L 100 Carbon Dioxide (21.0-32.0) mmol/L 28.2 Anion Gap (3-11) mmol/L 5.8 BUN (7-18) mg/dL 20 H Creatinine (0.70-1.30) mg/dL 1.6 H Est GFR (CKD-EPI 2020) (mL/min/1.73m2) 44.65 Glucose (74-106) mg/dL 115 H Calcium (8.5-10.1) mg/dL 9.0 Magnesium (1.8-2.4) mg/dL 1.9 Total Bilirubin (0.2-1.0) mg/dL 0.64 AST (15-37) U/L 33 ALT (16-63) U/L 44 Alkaline Phosphatase (46-116) U/L 119 H Troponin I (<or=76) ng/L 14 15 C-Reactive Protein (<or=0.5) mg/dL 7.41 H NT-Pro-B Natriuret Pep (<300) pg/mL 747 H Total Protein (6.4-8.2) g/dL 7.1 Albumin (3.4-5.0) g/dL 2.8 L Lipase (<78) U/L 64 Procalcitonin ng/mL 0.26 COVID-19 Source Nasopharynx SARS-CoV-2 (PCR) (Negative) Negative Influenza Type A (PCR) (Negative) Negative Influenza Type B (PCR) (Negative) Negative RSV (PCR) (Negative) Negative Quality:SDOH Health Related Social Needs: No Data to Display PFSH All Active Problems (Updated 07/16/24 @ 14:03 by MINDY Leblanc) Sepsis (Acute) Social History Smoking/Tobacco Use Status: Never Smoking risk assessment performed?: Yes Alcohol Intake: never Substance use type: does not use Housing: house Do you feel safe at home: Yes Do you feel safe in your relationship?: Yes Additional Social history: at side, very supportive
[2024-07-16] MEDS: Acetaminophen 325 MG TAB 650 MG PO (11:41)
[2024-07-16 11:58] LABS: Abs Immature Grans 0.08 10^3/uL (0.0-0.06); Absolute Basophil Count 0.01 10^3/uL (0.0-0.2); Absolute Eosinophil Count 0.32 10^3/uL (0.0-0.7); Absolute Monocyte Count 0.85 10^3/uL (0.1-0.8); Absolute Neutrophil Count 5.59 10^3/uL (1.2-6.7); Basophils % 0.1 %; Eosinophils % 4.3 %; HCT 27.3 % (40.0-50.0); HGB 8.9 g/dL (13.5-17.5); Immature Grans % 1.1 %; Lymphocytes % 8.1 %; MCH 31.6 pg (27.0-33.0); MCHC 32.6 % (32.0-36.0); MCV 97 fL (80-95); MPV 9.7 fL (8.0-11.0); Monocytes % 11.4 %; Platelet Count 278 10^3/uL (130-400); RBC 2.82 10^6/uL (4.36-5.78); RDW 14.7 % (11.8-14.1); RDW-SD 51.6 fL; WBC 7.45 10^3/uL (4.4-10.8)
[2024-07-16] MEDS: cefTRIAXone 2 GM/50 ML BAG IVPB (12:02)
[2024-07-16 12:24] LABS: ALT 44 U/L (16-63); AST 33 U/L (15-37); Albumin 2.8 g/dL (3.4-5.0); Alkaline Phosphatase 119 U/L (46-116); Anion Gap 5.8 mmol/L (3-11); BUN 20 mg/dL (7-18); Bilirubin, Total 0.64 mg/dL (0.2-1.0); C-Reactive Protein 7.41 mg/dL (<or=0.5); CO2 28.2 mmol/L (21.0-32.0); CREATININE 1.6 mg/dL (0.70-1.30); Chloride 100 mmol/L (98-107); Estimated GFR 44.65 (mL/min/1.73m2); Glucose 115 mg/dL (74-106); Lipase 64 U/L (<78); Magnesium 1.9 mg/dL (1.8-2.4); NT-proBNP 747 pg/mL (<300); Potassium 4.8 mmol/L (3.5-5.1); Sodium 134 mmol/L (136-145); Total Protein 7.1 g/dL (6.4-8.2); Troponin I 14 ng/L (<or=76)
[2024-07-16 12:26] LABS: Procalcitonin 0.26 ng/mL
[2024-07-16 12:40] LABS: COVID-19 PCR Negative (Negative); Influenza A PCR Negative (Negative); Influenza B PCR Negative (Negative); RSV PCR Negative (Negative)
[2024-07-16] MEDS: Normal Saline - Diluent 50 ML VIAL IJ (12:40)
[2024-07-16] MEDS: Omnipaque 350 MG/ML 500 ML BTL-Imaging package 50 ML IJ (12:42)
[2024-07-16] MEDS: Omnipaque 350 MG/ML 50 ML BTL IJ (12:45)
[2024-07-16 12:53] LABS: Source Nasopharynx
[2024-07-16 12:59] LABS: Troponin I 15 ng/L (<or=76)
[2024-07-16] MEDS: AZITHROMYCIN 500 MG in Normal Saline 250 ML 250 MG IVPB (13:26)
[2024-07-16 14:21] LABS: Lactate 0.7 mmol/L (<or=2.0)
[2024-07-16] MEDS: Normal Saline 1,000 ML 150 ML IV ×2 (14:23→21:30)
--- NOTE | 2024-07-16 16:02 | W.PC.ACHO ---
Registration Status: Primary Language: Preferred Language: ED Information & Data Chief Complaint Fever 07/16/24 11:21 Triage Note Pt has had fevers on and off 07/16/24 11:08 for a week, cough as well. Went to cancer center, sent over here. Going through chemo currently. Cancer center sent him here d/t concerns. Has had 3 e. coli infections in 6 months per . 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 Has had mild cough as well, feels SOB walking. Most Recent Vital Signs Temperature 37.3 C 07/16/24 14:21 Temperature Source Oral 07/16/24 13:40 Pulse 75 07/16/24 15:47 Pulse 75 07/16/24 15:47 Respiratory Rate 12 07/16/24 15:47 Blood Pressure 139/82 07/16/24 15:47 Blood Pressure Mean 91 07/16/24 15:47 Blood Pressure Position Sitting 07/16/24 13:40 Pulse Oximetry 94 07/16/24 15:47 Oxygen Delivery Method Room Air 07/16/24 13:40 Oxygen Flow Rate 0 07/16/24 11:08 Allergies cisplatin Allergy (Severe, Verified 07/16/24 11:18) Anaphylaxis sotalol Adverse Reaction (Severe, Verified 07/16/24 11:18) bradycardia Precautions Isolation Droplet precaution 07/16/24 11:13 Active Medications Generic Name Dose Route Start Last Admin Trade Name Freq PRN Reason Stop Dose Admin Sodium Chloride 1,000 mls @ 150 mls/hr 07/16/24 14:15 07/16/24 14:23 Saline 1000ml Bag IV 150 mls/hr INFUSION RAPHAEL Administration Iohexol 50 ml 07/16/24 12:45 07/16/24 12:42 Omnipaque 350 Mg/Ml 500 Ml Btl-Imaging Package IJ 08/15/24 23:59 50 ml DIRECTED RAPHAEL Administration Iohexol 50 ml 07/16/24 13:00 07/16/24 12:45 Omnipaque 350 Mg/Ml 50 Ml Btl IJ 08/15/24 23:59 50 ml DIRECTED RAPHAEL Administration Sodium Chloride 50 ml 07/16/24 12:45 07/16/24 12:40 Normal Saline - Diluent 50 Ml Vial IJ 50 ml .FOR DI USE RAPHAEL Administration Diagnostics 07/16/24 07/16/24 07/16/24 Range/Units 14:17 12:31 11:35 WBC 7.45 (4.4-10.8) 10^3/uL RBC 2.82 L (4.36-5.78) 10^6/uL Hgb 8.9 L (13.5-17.5) g/dL Hct 27.3 L (40.0-50.0) % MCV 97 H (80-95) fL MCH 31.6 (27.0-33.0) pg MCHC 32.6 (32.0-36.0) % RDW 14.7 H (11.8-14.1) % Plt Count 278 (130-400) 10^3/uL MPV 9.7 (8.0-11.0) fL Immature Gran % 1.1 % Neutrophils % 75.0 % Lymphocytes % 8.1 % Monocytes % 11.4 % Eosinophils % 4.3 % Basophils % 0.1 % Nucleated RBC % 0.0 (0.0-0.3) % Absolute Neutrophils 5.59 (1.2-6.7) 10^3/uL Absolute Lymphocytes 0.60 L (1.2-3.4) 10^3/uL Absolute Monocytes 0.85 H (0.1-0.8) 10^3/uL Absolute Eosinophils 0.32 (0.0-0.7) 10^3/uL Absolute Basophils 0.01 (0.0-0.2) 10^3/uL VBG Lactate 0.7 (<or=2.0) mmol/L Sodium 134 L (136-145) mmol/L Potassium 4.8 (3.5-5.1) mmol/L Chloride 100 (98-107) mmol/L Carbon Dioxide 28.2 (21.0-32.0) mmol/L Anion Gap 5.8 (3-11) mmol/L BUN 20 H (7-18) mg/dL Creatinine 1.6 H (0.70-1.30) mg/dL Est GFR (CKD-EPI 2020) 44.65 (mL/min/1.73m2) Glucose 115 H (74-106) mg/dL Calcium 9.0 (8.5-10.1) mg/dL Magnesium 1.9 (1.8-2.4) mg/dL Total Bilirubin 0.64 (0.2-1.0) mg/dL AST 33 (15-37) U/L ALT 44 (16-63) U/L Alkaline Phosphatase 119 H (46-116) U/L Troponin I 15 14 (<or=76) ng/L C-Reactive Protein 7.41 H (<or=0.5) mg/dL NT-Pro-B Natriuret Pep 747 H (<300) pg/mL Total Protein 7.1 (6.4-8.2) g/dL Albumin 2.8 L (3.4-5.0) g/dL Lipase 64 (<78) U/L Procalcitonin 0.26 ng/mL COVID-19 Source SARS-CoV-2 (PCR) (Negative) Influenza Type A (PCR) (Negative) Influenza Type B (PCR) (Negative) RSV (PCR) (Negative) 07/16/24 Range/Units 11:15 WBC (4.4-10.8) 10^3/uL RBC (4.36-5.78) 10^6/uL Hgb (13.5-17.5) g/dL Hct (40.0-50.0) % MCV (80-95) fL MCH (27.0-33.0) pg MCHC (32.0-36.0) % RDW (11.8-14.1) % Plt Count (130-400) 10^3/uL MPV (8.0-11.0) fL Immature Gran % % Neutrophils % % Lymphocytes % % Monocytes % % Eosinophils % % Basophils % % Nucleated RBC % (0.0-0.3) % Absolute Neutrophils (1.2-6.7) 10^3/uL Absolute Lymphocytes (1.2-3.4) 10^3/uL Absolute Monocytes (0.1-0.8) 10^3/uL Absolute Eosinophils (0.0-0.7) 10^3/uL Absolute Basophils (0.0-0.2) 10^3/uL VBG Lactate (<or=2.0) mmol/L Sodium (136-145) mmol/L Potassium (3.5-5.1) mmol/L Chloride (98-107) mmol/L Carbon Dioxide (21.0-32.0) mmol/L Anion Gap (3-11) mmol/L BUN (7-18) mg/dL Creatinine (0.70-1.30) mg/dL Est GFR (CKD-EPI 2020) (mL/min/1.73m2) Glucose (74-106) mg/dL Calcium (8.5-10.1) mg/dL Magnesium (1.8-2.4) mg/dL Total Bilirubin (0.2-1.0) mg/dL AST (15-37) U/L ALT (16-63) U/L Alkaline Phosphatase (46-116) U/L Troponin I (<or=76) ng/L C-Reactive Protein (<or=0.5) mg/dL NT-Pro-B Natriuret Pep (<300) pg/mL Total Protein (6.4-8.2) g/dL Albumin (3.4-5.0) g/dL Lipase (<78) U/L Procalcitonin ng/mL COVID-19 Source Nasopharynx SARS-CoV-2 (PCR) Negative (Negative) Influenza Type A (PCR) Negative (Negative) Influenza Type B (PCR) Negative (Negative) RSV (PCR) Negative (Negative) 07/16/24 11:50 Blood Culture - Pending Blood 07/16/24 11:35 Blood Culture - Pending Blood Intake and Output - 24 Hour Total 07/16/24 10:58 thru 07/16/24 14:36 Intake Total 320 Balance 320 Weight 97.522 kg Intake: IV 320 Falls Risk Assessment History of Falls No History 07/16/24 12:17 Contributing Factors No Factors 07/16/24 12:17 Ambulatory Aids Independent 07/16/24 12:17 Tubes/Lines None 07/16/24 12:17 Gait Evaluation No gait disturbance 07/16/24 12:17 Cognition No cognitive impairment 07/16/24 12:17 Fall Total Score 0 07/16/24 12:17 Level of Risk Standard/Low Risk 07/16/24 12:17 v v v v v v v v v Sending and/or Receiving Nurses: Please use comment section below to note any information pertinent to the patient hand-off not included above. Information / Comments: Report received from SALTY Brewster Admit for pneumonia and possible sepsis Report received from:
--- NOTE | 2024-07-16 16:17 | HPE_ITS ---
Date of service: 07/16/24 Time of Service: 16:17 Assessment and Plan Assessment and plan (1) Weakness: Status: Acute Assessment and plan: The workup for this patient's fairly profound and quick episodes of fatigue in the setting of continued chemotherapy for cholangiocarcinoma are a bit broad. I will do a sputum culture, Legionella antigen check, mycoplasma pneumonia evaluation, blood cultures have already been drawn in the ED, UA, an echocardiogram, TSH with reflex T4, B12, folate, Hemoccult check stool as his BUN to creatinine ratio somewhat elevated, and continue with his current antibiotics include Rocephin and Zithromax. Pending the results of the above we will determine further care. (2) Cholangiocarcinoma: Status: Acute Assessment and plan: Patient is actively followed by Dr. East of the oncology service will defer (3) Depression: Status: Chronic Assessment and plan: Continue with his Wellbutrin (4) Gout: Status: Chronic Assessment and plan: Continue with his colchicine (5) HTN (hypertension): Status: Chronic Assessment and plan: Monitor in light of possible infection. (6) BPH (benign prostatic hyperplasia): Status: Chronic Assessment and plan: Continue with home meds. History of Present Illness History of Present Illness Chief Complaint: fatigue Narrative: This is a 74-year-old gentleman with a known history of cholangiocarcinoma followed by Dr. East who complains of approximately 1 week of severe fatigue. Patient states that he does have a history of multiple episodes of E. coli bacteremia and states this feels somewhat similar to when he has had those episodes. Patient called his oncologist who recommended he come in for evaluation. Workup in the ED including a CT angiogram did not show an emboli or infarction. There was some concern about bilateral groundglass infiltrates in the upper lobes. The patient's laboratory work showed a normal white count with a mild left shift as well as anemia of 8.9 which was essentially fairly similar to what he has had in the past with a indolent anemia. Of note he does have an elevated MCV but similar to what he had in the past. Patient's chemistry showed a sodium of 134 BUN and creatinine of 20 and 1.6 glucose of 115 alk phos of 119 CRP significantly elevated at 7.41 and BNP is 747. Urinalysis is pending and a viral panel was essentially benign. Patient denies signs and symptoms consistent with a CHF exacerbation and has never been diagnosed with CHF. Patient denies any signs or symptoms consistent with hypothyroidism. Review of Systems All systems reviewed & are unremarkable except as noted in HPI and below PFSH All Active Problems (Updated 07/16/24 @ 16:24 by Thomas Kennedy MD) BPH (benign prostatic hyperplasia) (Chronic) HTN (hypertension) (Chronic) Gout (Chronic) Depression (Chronic) Cholangiocarcinoma (Acute) Weakness (Acute) Sepsis (Acute) Social History Smoking/Tobacco Use Status: Never Smoking risk assessment performed?: Yes Alcohol Intake: never Substance use type: does not use Housing: house Do you feel safe at home: Yes Do you feel safe in your relationship?: Yes Additional Social history: at side, very supportive Meds Allergies and Home Medications Allergies Allergy/AdvReac Type Severity Reaction Status Date / Time cisplatin Allergy Severe Anaphylaxis Verified 07/16/24 11:18 sotalol AdvReac Severe bradycardia Verified 07/16/24 11:18 Home Medications ?Medication ?Instructions ?Recorded ?Confirmed ?Type acyclovir 800 mg tablet 800 mg PO ONCE PRN 05/21/24 07/16/24 History allopurinol 100 mg tablet 100 mg PO ONCE PRN 05/21/24 07/16/24 History apixaban 5 mg tablet 5 mg PO BID 05/21/24 07/16/24 History bupropion HCl 300 mg 24 hr tablet, 300 mg PO QAM 05/21/24 07/16/24 History extended release (Wellbutrin XL) colchicine 0.6 mg tablet 0.6 mg PO ONCE PRN 05/21/24 07/16/24 History darbepoetin miracle in polysorbat 200 200 mcg subcut .once] 05/21/24 07/16/24 History mcg/0.4 mL (polysorb) subcutaneous pen injector epinephrine 0.3 mg/0.3 mL 0.3 mg (0.3 mL) IM ONCE PRN 05/21/24 07/16/24 Rx injection, auto-injector (EpiPen) anaphylaxis #1 ea gabapentin 300 mg capsule 300 mg PO DIRECTED 05/21/24 07/16/24 History gemcitabine 100 mg/mL intravenous 1,200 mg IV ONCE 05/21/24 07/16/24 History solution magnesium oxide 400 mg PO BID 05/21/24 07/16/24 History metoprolol tartrate 25 mg tablet 50 mg PO BID 05/21/24 07/16/24 History ondansetron 8 mg disintegrating 8 mg PO TID PRN 05/21/24 07/16/24 History tablet pantoprazole 40 mg tablet,delayed 40 mg PO DAILY 05/21/24 07/16/24 History release prednisone 20 mg tablet 40 mg PO DAILY 05/21/24 07/16/24 History prochlorperazine maleate 10 mg 10 mg PO QID PRN 05/21/24 07/16/24 History tablet ropinirole 4 mg tablet,extended 4 mg PO DAILY PRN 05/21/24 07/16/24 History release 24 hr tamsulosin 0.4 mg capsule (Flomax) 0.4 mg PO DAILY 05/21/24 07/16/24 History torsemide 20 mg tablet 5 mg PO DAILY 05/21/24 07/16/24 History Exam Narrative Exam Narrative: Head eyes ears nose and throat: Normocephalic atraumatic mucous membranes are moist extraocular motions are intact Neck: No lymphadenopathy no JVD Cardiovascular: Regular rate and rhythm no murmur rubs or gallop Lungs: Clear to auscultation bilaterally with good air exchange Abdomen: Soft nontender nondistended bowel sounds active Extremities: No sinus clubbing or edema Neurologic: Cranial nerves II through XII intact as tested reflexes upper extremity normal as tested Psych: Alert and oriented x 3 no apparent distress General: 74-year-old gentleman appears his stated age no apparent distress Results Labs 07/16/24 11:35 07/16/24 11:35 Labs: Laboratory Results - last 24 hr 07/16/24 07/16/24 07/16/24 11:15 11:35 12:31 WBC 7.45 RBC 2.82 L Hgb 8.9 L Hct 27.3 L MCV 97 H MCH 31.6 MCHC 32.6 RDW 14.7 H Plt Count 278 MPV 9.7 Immature Gran % 1.1 Neutrophils % 75.0 Lymphocytes % 8.1 Monocytes % 11.4 Eosinophils % 4.3 Basophils % 0.1 Nucleated RBC % 0.0 Absolute Neutrophils 5.59 Absolute Lymphocytes 0.60 L Absolute Monocytes 0.85 H Absolute Eosinophils 0.32 Absolute Basophils 0.01 VBG Lactate Sodium 134 L Potassium 4.8 Chloride 100 Carbon Dioxide 28.2 Anion Gap 5.8 BUN 20 H Creatinine 1.6 H Est GFR (CKD-EPI 2020) 44.65 Glucose 115 H Calcium 9.0 Magnesium 1.9 Total Bilirubin 0.64 AST 33 ALT 44 Alkaline Phosphatase 119 H Troponin I 14 15 C-Reactive Protein 7.41 H NT-Pro-B Natriuret Pep 747 H Total Protein 7.1 Albumin 2.8 L Lipase 64 Procalcitonin 0.26 COVID-19 Source Nasopharynx SARS-CoV-2 (PCR) Negative Influenza Type A (PCR) Negative Influenza Type B (PCR) Negative RSV (PCR) Negative 07/16/24 14:17 WBC RBC Hgb Hct MCV MCH MCHC RDW Plt Count MPV Immature Gran % Neutrophils % Lymphocytes % Monocytes % Eosinophils % Basophils % Nucleated RBC % Absolute Neutrophils Absolute Lymphocytes Absolute Monocytes Absolute Eosinophils Absolute Basophils VBG Lactate 0.7 Sodium Potassium Chloride Carbon Dioxide Anion Gap BUN Creatinine Est GFR (CKD-EPI 2020) Glucose Calcium Magnesium Total Bilirubin AST ALT Alkaline Phosphatase Troponin I C-Reactive Protein NT-Pro-B Natriuret Pep Total Protein Albumin Lipase Procalcitonin COVID-19 Source SARS-CoV-2 (PCR) Influenza Type A (PCR) Influenza Type B (PCR) RSV (PCR) Last Vital Signs Temp 37.3 C 07/16/24 14:21 Pulse 75 07/16/24 15:47 Resp 12 07/16/24 15:47 BP 139/82 07/16/24 15:47 Pulse Ox 94 07/16/24 15:47 Time Spent Time spent with Patient: 55-74 minutes Time was spent: preparing to see the patient(eg.review tests), obtaining and/or reviewing separately otained hiistory, ordering medications,tests, procedures, referring, communicating with other health care coordinator, indepentently interpreting results, counseling the patient and care coordination
[2024-07-16 16:30] LABS: Bilirubin Negative (Negative); Blood Trace-intact (Negative); Clarity Clear (Clear); Glucose Negative (Negative); Ketones Negative (Negative); Leukocyte Esterase Negative (Negative); Nitrite Negative (Negative); Specific Gravity 1.015 (1.005-1.025); Urobilinogen 0.2 mg/dL (Up to 0.2); pH 7.5 (5-8)
[2024-07-16 16:45] LABS: Bacteria Negative HPF (Negative); Crystals Negative HPF (Negative); Epithelial Cells Negative HPF (Negative); Mucus Negative (Negative); RBC 0-2 HPF (0-2); WBC Negative HPF (0-5)
[2024-07-16 16:46] LABS: C & S Indicated? No; Casts Negative LPF (Negative)
[2024-07-16] MEDS: Apixaban 5 MG TAB PO (20:24)
[2024-07-16] MEDS: Magnesium Oxide 400 MG TAB PO (20:24)
[2024-07-16] MEDS: Polyethylene Glycol 3350 17 GM PACKET PO (20:25)
[2024-07-16] MEDS: Gabapentin 300 MG CAP 900 MG PO (20:25)
[2024-07-16] MEDS: Acetaminophen 325 MG TAB PO (22:57)
[2024-07-17] VITALS (10 sets, daily range): BP systolic 136–160; BP diastolic 60–78; PULSE 69–92; RESP 14–28; TEMP 36.4–37.2; O2SAT 88–97
[2024-07-17] MEDS: traMADol 50 MG TAB PO ×3 (00:01→21:06)
[2024-07-17] MEDS: Normal Saline 1,000 ML 150 ML IV ×3 (03:48→21:07)
[2024-07-17 07:16] LABS: Creatine Kinase 36 U/L (39-308)
[2024-07-17 07:28] LABS: TSH (W/Ref FT4) 2.93 uIU/mL (0.36-3.74)
[2024-07-17] MEDS: Pantoprazole 40 MG TABCR PO (08:25)
[2024-07-17] MEDS: predniSONE 20 MG TAB 40 MG PO (08:25)
[2024-07-17] MEDS: Colchicine 0.6 MG TAB PO (08:25)
[2024-07-17] MEDS: Torsemide 10 MG TAB 5 MG PO (08:26)
[2024-07-17] MEDS: Tamsulosin 0.4 MG CAPCR PO (08:26)
[2024-07-17] MEDS: Gabapentin 300 MG CAP PO (08:26)
[2024-07-17] MEDS: Magnesium Oxide 400 MG TAB PO ×2 (08:26→21:06)
[2024-07-17] MEDS: Metoprolol 50 MG TAB PO ×2 (08:26→21:06)
[2024-07-17] MEDS: Apixaban 5 MG TAB PO ×2 (08:26→21:06)
[2024-07-17] MEDS: buPROPion-XL 150 MG TABCR 300 MG PO (10:40)
[2024-07-17] MEDS: cefTRIAXone 2 GM/50 ML BAG IVPB (11:04)
[2024-07-17] MEDS: AZITHROMYCIN 250 MG in Normal Saline 250 ML IVPB (12:07)
[2024-07-17] MEDS: Normal Saline Flush 10 ML SYR (12:08)
--- NOTE | 2024-07-17 14:30 | DI.US_ITS ---
APPROVED REPORT EXAM: Comprehensive 2D, Doppler, and color-flow Echocardiogram Patient Location: In-Patient Room/Bed: 227 Systems Integration Advisor: Wander Agudelo RDCS (AE) Indications: SOB/WEAKNESS Conclusion Normal left ventricular wall thickness and chamber size. Ejection fraction is 60 to 65%. Wall motio n is normal. Diastolic function is normal for age Normal right ventricular size and function Both atria are normal in size Aortic valve is mildly sclerotic and trileaflet without stenosis or regurgitation There is no additional significant valvular disease Wall motion Left Ventricle The left ventricle is normal size. The left ventricular systolic function is normal. The left ventric ular ejection fraction is within the normal range. There is normal left ventricular wall thickness. T here is normal LV segmental wall motion. There is no ventricular septal defect visualized. LVEF is 60 -65%. Right Ventricle The right ventricle is normal size. The right ventricular systolic function is normal. Atria The left atrium size is normal. The right atrium size is normal. The interatrial septum is intact wit h no evidence for an atrial septal defect. Aortic Valve The aortic valve is mildly sclerotic. Aortic valve is trileaflet. There is no aortic valvular stenosi s. No aortic regurgitation is present. Mitral Valve The mitral valve is normal in structure. No evidence of mitral valve stenosis. Trace mitral regurgita tion. Tricuspid Valve The tricuspid valve is normal in structure. There is no tricuspid valve stenosis. Trace tricuspid reg urgitation. Pulmonic Valve The pulmonary valve is normal in structure. There is no pulmonic valvular stenosis. There is no pulmo gia valvular regurgitation. Great Vessels The aortic root is normal in size. The ascending aorta is normal in size. Aortic arch is not well vis ualized. IVC is normal in size and collapses >50% with inspiration. Pericardium There is no pericardial effusion. 2D Dimensions IVSD d PLAX 0.78 cm M: 0.6-1.2 Ao Root d 3.22 cm M: 3.1 - 3.7 LVPW d PLAX 0.79 cm M: 0.6 - 1.2 Ao Asc Diam d 2.96 cm M: 2.6 - 3.4 LVID d PLAX 6.02 cm M: 4.2 - 5.8 LVDs 4.04 cm M: 2.5 - 4.0 LV EF Teichholz 60.5 % FS 32.91 % LV EDV (Teich) 181.2 mL LV ESV (Teich) 71.5 mL Stroke Vol Index (Teich) 53.23 M-Mode TAPSE 2.13 cm (M/F) >1.7 Auto EF LV EDV A4C 152.3 mL LV EDV A2C 134.0 mL LV EDV BP 143.8 mL LV ESV A4C 57.9 mL LV ESV A2C 51.1 mL LV ESV BP 53.9 mL LVEF(%) A4C 62.0 % LVEF(%) A2C 61.9 % LVEF(%) BP 62.5 % LV SV A4C 94.4 ml LV SV A2C 82.9 ml LV SV BP 89.9 ml LV CO A4C 7.3 L/min LV CO A2C 6.6 L/min LV CO BP 7.0 L/min HR A4C 77.73 BPM HR A2C 79.30 BPM LV EDV Index (BP) LA Volume LA Length A4C 4.7 cm LA Length A2C 5.5 cm LA Area A4C s 14.92 cm2 LA Area A2C s 17.20 cm2 LA Vol A4C A-L 40.24 mL LA Vol A2C A-L 45.46 mL LA Vol Biplane A-L 46.4 mL LA Vol/BSA A4C A-L LA Vol/BSA A2C A-L LA Vol/BSA BP A-L 22.5 mL/m2 LA Vol A4C MOD 38.7 mL LA Vol A2C MOD 42.8 mL LA Vol BP MOD 43.9 mL RA Volume RA Area A4C 8.0 cm2 RA ESV A4C (A-L) 11.6mL RA Vol/BSA A4C A-L RA Length A4C 4.6 cm RA ESV A4C (MOD) 11.5mL LV Diastology MV E' medial 0.072 (>0.07 m/s) MV E Vmax 0.96 (0.4-1.3 m/s) MV E/E' MED 13.46 (<14) MV A Vmax 0.85 (0.4-1.3 m/s) MV E' lateral 0.082 (>0.1 m/s) E/A Ratio 1.1 MV E/E' LAT 11.75 (<14) MV E' Average 0.077 m/s MV E/E'(average) 12.55 Aortic Valve AoV Vmax 1.97 m/s LVOT Vmax 1.14 m/s AoV Peak Grad 15.5 mmHg LVOT Peak Grad 5.2 mmHg AoV Area (Vmax) 1.90 cm2 LVOT VTI 0.247 m AoV VTI 0.403 m LVOT Mean Grad 3.0 mmHg AoV Mean Jorge Luis. 1.38 m/s LVOT SV 81.08 mL AoV Mean Grad 8.6 mmHg LVOT Diam s 2.00 cm AoV Area (VTI) 2.01 cm2 AV Regurg Peak Gr. 15.49 mmHg Velocity Ratio 0.58 Mitral Valve MV DT 202 (160-240 msec) MV Vmax TIPS 0.99 m/s MV Mean Grad 1.8 (<2mmHg) MV VTI 0.309 m Pulmonary Valve PV Vmax 1.26 (0.5-1.5 m/s) RVOT Vmax 1.21 m/s PV Peak Grad 6.3 mmHg RVOT Peak Gr. 5.9 mmHg PV Mean Jorge Luis 0.86 m/s RVOT VTI 0.192 m PV Mean Grad 3.4 mmHg RVOT Mean Gr. 2.5 mmHg
--- NOTE | 2024-07-17 15:27 | PGE_ITS ---
Date of Service Date of service: 07/17/24 Time of Service: 15:27 Assessment and Plan Assessment and plan (1) Weakness: Status: Acute Assessment and plan: The workup for this patient's fairly profound and quick episodes of fatigue in the setting of continued chemotherapy for cholangiocarcinoma are a bit broad. I will do a sputum culture, Legionella antigen check, mycoplasma pneumonia evaluation, blood cultures have already been drawn in the ED, UA, an echocardiogram, TSH with reflex T4, B12, folate, Hemoccult check stool as his BUN to creatinine ratio somewhat elevated, and continue with his current antibiotics include Rocephin and Zithromax. Pending the results of the above we will determine further care. 07/17/24 I did add a monospot for completeness. Pt states that he did have mononucleosus as a child (2) Cholangiocarcinoma: Status: Acute Assessment and plan: Patient is actively followed by Dr. East of the oncology service will defer (3) Depression: Status: Chronic Assessment and plan: Continue with his Wellbutrin (4) Gout: Status: Chronic Assessment and plan: Continue with his colchicine (5) HTN (hypertension): Status: Chronic Assessment and plan: Monitor in light of possible infection. (6) BPH (benign prostatic hyperplasia): Status: Chronic Assessment and plan: Continue with home meds. Subjective Subjective Interval history since last seen: Pt seen and examined in his room this afternoon. Pt still feels weak. POC d/w pt as well as bedside nurse during MDR Exam Narrative Exam Narrative: Head eyes ears nose and throat: Normocephalic atraumatic mucous membranes are moist extraocular motions are intact pale scleral icterus bilat Neck: No lymphadenopathy no JVD Cardiovascular: Regular rate and rhythm no murmur rubs or gallop Lungs: Clear to auscultation bilaterally with good air exchange Abdomen: Soft nontender nondistended bowel sounds active Extremities: No sinus clubbing or edema Neurologic: Cranial nerves II through XII intact as tested reflexes upper extremity normal as tested Psych: Alert and oriented x 3 no apparent distress General: 74-year-old gentleman appears his stated age no apparent distress Objective Last Vital Signs Temp 36.9 C 07/17/24 11:43 Pulse 82 07/17/24 11:43 Resp 16 07/17/24 11:43 BP 147/74 H 07/17/24 11:43 Pulse Ox 93 07/17/24 13:23 Laboratory Results - last 24 hr 07/16/24 07/17/24 16:15 06:24 Creatine Kinase 36 L TSH 2.93 Urine Color Yellow Urine Clarity Clear Urine pH 7.5 Ur Specific [place] 1.015 Urine Protein Trace Urine Ketones Negative Urine Blood Trace-intact H Urine Nitrite Negative Urine Bilirubin Negative Urine Urobilinogen 0.2 Ur Leukocyte Esterase Negative Urine RBC 0-2 Urine WBC Negative Ur Epithelial Cells Negative Urine Crystals Negative Urine Bacteria Negative Urine Casts Negative Urine Mucus Negative Ur Culture Indicated? No Urine Glucose Negative Time Spent with Patient Time Spent with Patient: 35-49 minutes Time was spent: preparing to see the patient(eg.review tests), obtaining and/or reviewing separately otained hiistory, ordering medications,tests, procedures, referring, communicating with other health coronary care unit nurse, indepentently interpreting results, counseling the patient and care coordination
--- NOTE | 2024-07-17 15:43 | PDOC.CMIN ---
Date of service: 07/17/24 Time of Service: 15:43 Care Management Initial Assmt Initial Assessment Reason for Hospitalization: weakness Functional Status/Living Situation Patient Presentation: Herrera was sitting up in bed when CM met with him. He was alert and oriented and easily engaged with CM. [facility]. He is currently receiving chemotherapy for cholangiocarcinoma. He has had several bouts of E. Coli bacteremia and expressed concern that this is happening again. He was febrile yesterday with a T-max of 38.4 but has afebrile today. Blood cultures drawn yesterday are negative at 24 hours. Herrera's vital signs are stable and his oxygen saturation is in the mid-nineties on room air. Anticipate Aki will return home with new home health services for nursing and PT once medically cleared. His or son will transport him home via private vehicle and he will follow up with his PCP and discharge plan of care. CM will continue to assess for discharged needs. Herrera is and lives in a single family home in [place], [place] with his Afsaneh. 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 Herrera and Afsaneh have 5 children. Several live out of state or at a distance. One son lives in [place], [place] and one lives in [facility]. 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: N 07/12/23 09:52 Date Asked 07/16/24 07/16/24 11:49 AD Date Reviewed COLST On File at [facility] COLST Date Scanned Code Status Resuscitation Status Full Code Portal Pt does not currently have a portal and education provided: No Portal Education: Other (not from this area) Insurance Coverage/Financial Issues Insurance: [facility] Care Team Visit Care Team Role Provider Type Ricky East MD Primary Care Provider MD CONSULTING PHYSICIAN MINDY Leblanc Emergency Provider [facility] [employer] Thomas Kennedy MD Admit Provider MD NEVILLE STAFF PHYSICIAN Attending Provider Other Providers Discharge Potential Discharge Needs: PCP F/U Appt Anticipated Barriers to Discharge: None Identified Patient/Family Education Needs: Review discharge instructions, discuss Ask Me Three Transportation: Private vehicle Plan: Anticipate Herrera will be discharged home with no new services when medically cleared. He will follow up with his community providers and plan of care and transport with family.CM will follow and continue to support discharge planning efforts. Social Determinants of Health Screening Social Determinants of Health last assessed: 07/17/24 Will the Patient Participate in the Screening?: Yes Do you worry about having a steady place to live?: no Problems where you live: no known problems In the past 12 months, have you had to go without electric, gas, oil or water in your home?: no Have you or anyone in your house had to go without enough food to eat?: no Has lack of transportation kept you from medical appointments or from doing things needed for daily living?: no Has anyone in your life made you feel unsafe or unsupported?: no How hard is it for you to pay for the very basics like food, housing, medical care, and heating? Would you say it is:: Not hard at all Do you want help finding or keeping work or a job?: I do not need or want help If for any reason you need help with day-to-day activities such as bathing, preparing meals, shopping, managing finances, etc., do you get the help you need?: I get all the help I need How often do you feel lonely or isolated from those around you?: Rarely Do you speak a language other than Kosovan at home?: No Does the patient want assistance with any of the above?: No Health Related Social Needs Health related social needs: feeling lonely/isolated (Z60.8) PFSH All Active Problems (Updated 07/16/24 @ 16:24 by Thomas Kennedy MD) BPH (benign prostatic hyperplasia) (Chronic) HTN (hypertension) (Chronic) Gout (Chronic) Depression (Chronic) Cholangiocarcinoma (Acute) Weakness (Acute) Sepsis (Acute) Social History Smoking/Tobacco Use Status: Never Smoking risk assessment performed?: Yes Alcohol Intake: never Substance use type: does not use Housing: house Do you feel safe at home: Yes Do you feel safe in your relationship?: Yes Additional Social history: at side, very supportive
--- NOTE | 2024-07-17 16:44 | CHAPLAIN ---
Juventino was sitting up in bed when I visited. I explained my role and offered support. Juventino was pleasant, and not interested in further conversation.
--- NOTE | 2024-07-17 16:49 | PHA.REVIEW2 ---
Pharmacy Admission Review Admission Clinical Review Admission Pharmacy Review: Cholangiocarcinoma (Acute) Weakness (Acute) cisplatin Allergy (Severe, Verified 07/16/24 11:18) Anaphylaxis sotalol Adverse Reaction (Severe, Verified 07/16/24 11:18) bradycardia Resuscitation Status Full Code Height 5 ft 7 in Weight 95.254 kg Comments Comments/Follow Ups: Follow up on gabapentin dosing if order is not changed and on missing home meds Pharmacy Admission Review Renal Dosing Renal Dosing: BUN 20 mg/dL (7-18) H 07/16/24 11:35 Creatinine 1.6 mg/dL (0.70-1.30) H 07/16/24 11:35 Medications needing adjustments: Intervened (CrCl 43.88 mL/min) List of meds needing interventions: Reached out to provider regarding gabapentin dose. Recommended max dose for CrCl < 50 is 900mg/day in divided doses. Per provider they will change the order. Anticoagulation Anticoagulation: Hgb 8.9 g/dL (13.5-17.5) L 07/16/24 11:35 Hct 27.3 % (40.0-50.0) L 07/16/24 11:35 Plt Count 278 10^3/uL (130-400) 07/16/24 11:35 Creatinine 1.6 mg/dL (0.70-1.30) H 07/16/24 11:35 DVT Prophylaxis: Reviewed Medications: Apixaban (5mg PO BID) Relevant Labs Relevant Labs: Sodium 134 mmol/L (136-145) L 07/16/24 11:35 Potassium 4.8 mmol/L (3.5-5.1) 07/16/24 11:35 Chloride 100 mmol/L (98-107) 07/16/24 11:35 Magnesium 1.9 mg/dL (1.8-2.4) 07/16/24 11:35 C-Reactive Protein 7.41 mg/dL (<or=0.5) H 07/16/24 11:35 Electrolytes, C-Reactive P, ESR: Reviewed (No new labs for today) Cardiac Review Cardiac Review: Troponin I 15 ng/L (<or=76) 07/16/24 12:31 NT-Pro-B Natriuret Pep 747 pg/mL (<300) H 07/16/24 11:35 Blood Pressure 148/74 1528 Blood Pressure 147/74 1143 Blood Pressure 160/78 0807 Blood Pressure 136/65 0511 BP, HR, EF%: Reviewed (HR WNL) List meds needing interventions: Has order for metoprolol 50mg BID and torsemide 5mg daily QTc Review QTc: Reviewed (430 from 07/16/24) IV to PO Switch IV Medications: Reviewed (azithromycin and ceftriaxone) Home Meds Home Med List reviewed: Intervened Relevent Home Meds Not ordered & why?: acyclovir (was ordered and then canceled by the provider), allopurinol, Aranesp (infusion), Epipen (PRN), and gemcitabine (infusion) Reached out to provider regarding allopurinol and acyclovir - waiting to hear back Ropinirole put in as patients own order - asked nursing to see if these could be brought in. Waiting to hear back. Current Meds Current Medication Order Review: Intervened Comments: Added IV admission order set Pharmacy Antibiotic Review Relevant Labs: WBC 7.45 10^3/uL (4.4-10.8) 07/16/24 11:35 Procalcitonin 0.26 ng/mL 07/16/24 11:35 Temperature 36.4 C Temperature 36.9 C Temperature 36.8 C Temperature 37.2 C Microbiology 07/16/24 11:50 Blood Culture - Preliminary Blood NO GROWTH 24 HOURS 07/16/24 11:35 Blood Culture - Preliminary Blood NO GROWTH 24 HOURS Pharmacy Antibiotic Activity: C/S review and Reviewed, no change Comments: Patient is on ceftriaxone and azithromycin, day 2, for pneumonia. Blood cultures negative. Comments Comments/Follow Ups: Follow up on gabapentin dosing if order is not changed and on missing home meds
[2024-07-17] MEDS: Gabapentin 300 MG CAP 900 MG PO (21:06)
[2024-07-17 23:25] LABS: Legionella Ag Detection Urine Negative (Negative)
[2024-07-18] VITALS (31 sets, daily range): BP systolic 141–183; BP diastolic 67–101; PULSE 60–100; RESP 14–28; TEMP 34–39.2; O2SAT 72–100
--- NOTE | 2024-07-18 03:30 | RT.EKG_ITS ---
APPROVED REPORT Exam: Resting ECG Reason for Exam: low O2sat Patient Location: I HR:76 bpm ECG Measurements Heart Rate 76 AXIS MS [id number] P [id number] QRSd 79 QRS 9 QT 363 T 213 QTc 409 Conclusion Atrial fibrillation.. Nonspecific repol abnormality, diffuse leads...ST dep, T flat/neg, ant/lat/inf
--- NOTE | 2024-07-18 03:41 | DI.RAD_ITS ---
Exam(s) XR PORTABLE CHEST AP EXAM: XR PORTABLE CHEST AP CLINICAL HISTORY: Acute hypoxia. TECHNIQUE: 2D digital imaging was performed. COMPARISON: CT CT CHEST PE CTA from 07/16/2024 FINDINGS: Single AP portable view. Distal tip of the right Port-A-Cath is in the lower SVC. Heart size is upper normal. The mediastinum is not widened. There are extensive bilateral pulmonary infiltrates which appear significantly increased when compare d to images of chest CT scan performed 2 days ago on 07/16/2024. There are no pleural effusions. IMPRESSION: Extensive bilateral infiltrates significantly increased when compared to 2 days ago.Heart size upper normal. DATA REPOSITORY: RADIATION DOSE DELIVERED:
--- NOTE | 2024-07-18 03:51 | DI.VRAD_ITS ---
PROCEDURE INFORMATION: Exam: XR Chest Exam date and time: 07/18/2024 3:38 AM Age: 74 years old Clinical indication: Other: Acute hypoxia TECHNIQUE: Imaging protocol: Radiologic exam of the chest. Views: 1 view. COMPARISON: CT CHEST PE CTA 07/16/2024 12:40 PM FINDINGS: Lungs: There is extensive diffuse interstitial/reticular and airspace opacities in both lungs, worse compared to the diversional therapist radiograph from the recent CT 07/16/2024, most compatible with pneumonia or ARDS superimposed on underlying chronic lung disease such as medication toxicity or hypersensitivity pneumonitis. Pleural spaces: Unremarkable. No pleural effusion. No pneumothorax. Heart/Mediastinum: Unremarkable. No cardiomegaly. Bones/joints: Unremarkable. IMPRESSION: There is extensive diffuse interstitial/reticular and airspace opacities in both lungs, worse compared to the diversional therapist radiograph from the recent CT 07/16/2024, most compatible with pneumonia or ARDS superimposed on underlying chronic lung disease such as medication toxicity or hypersensitivity pneumonitis. Concomitant CHF not excluded. Dictated and Authenticated by: Pipo Dowell MD. Orderin Aguilar Perez MD
--- NOTE | 2024-07-18 03:57 | W.EVENT ---
Date of service: 07/18/24 Time of Service: 03:57 Event Note: Called by RN due to acute hypoxia with O2 saturations in mid 80s on room air, improving only to the high 80s/low 90s on 6L oxymask. Patient evaluated at the bedside. He currenlty denies dyspnea at rest, but reports progressive dyspnea with exertion over the past few days. He reports a mild non-productive cough that has been present since his admission. No recent fevers or chills. No recent vomiting or aspiration. Denies chest pain and pressure. No history of chronic hypoxic respiratory failure or underlying pulmonary disease. Echo on 07/17 with normal EF 60-65% without diastolic dysfunction. No valvular disease. Patient has been on IVFs at 150mL/hr, currently on hold. 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 Exam Gen:Elderly male lying in bed in NAD oxymask in place. O2 saturations in high 80s HEENT: AT/NC. No scleral icterus. Neck: Supple. CVS: RRR with normal S1/S2. No M/G/R Lungs: Clear to auscultation bilaterally without R/R/W. Mild tachypnea Abdomen: S/NT/ND. No guarding or rebound. No masses Extremities: Warm and well perfused. No C/C/E. Pulses 2/4 in DP/TP Neuro: Alert and oriented x 3. No focal neurologic deficit Psych: Appropriate and cooperative Skin: intact without rashes or lesions Stat CXR obtained and personally reviewed by me at the bedside. Demonstrates diffuse ground glass opacities bilaterally throughout lung cha, increased relative to recent team primary care physician CXR from recent CT 07/16/24 concerning for pneumonia, ARDS superimposed on underlying chronic lung disease such as medication toxicity or hypersensitivity pneumonitis, with CHF not excluded. EKG demonstrates NSR with rate 76 with normal intervals, no ST-T waves changes consistent with ischemia. ABG 7.43/32/127/21 Increased A-a gradient: 260 (expected 18) PaO2/FiO2: 211 CBC with stable chronic anemia without leukocytosis. CMP with slightly improved renal function with creatinine of 1.5. BNP is elevated to 2800. Troponin is 14. Lactate 1.6. [address] patient on HFNC, but may need to consider NIPPV. Will change Ceftriaxone and Azithromycin to Zosyn and Vancomycin. Will stop IVFs for now and administer Lasix 40 mg IV now. Reviewing patient's chart, it appears he is on gemcitabine for his history of cholangiocarcinoma, patient is unclear what his chemotherapy is. While rare, gemcitabine can lead to interstitial pneumonitis, pulmonary fibrosis, pulmonary edema and ARDS which can progress even with discontinuation of therapy. Will trial IV solumedrol 125 mg IV now. Patient had CTA chest with PE protocol 07/16 which was negative for PE. Has been on Eliquis. Will proceed with repeat non-contrasted CT chest as low suspicion for PE at this point but would like to further evaluate lung parenchyma. If patient does not improve with this treatment or demonstrates worsening respiratory status, may need to consider transfer to tertiary facility for Pulmonary consultation and evaluation. Time spent in the critical care of this patient with sudden decompensation of his respiratory status with acute hypoxic respiratory failure requiring my immediate attention at the bedside with high risk of further decompensation, including evaluation of the patient and discussion of plan, discussion with RN, review of labs and imaging, coordination of care: 81 minutes (3:21AM-4:42AM) Time Spent with Patient Time spent in critical care(minutes): 81 Time Spent Included: Coordination of care, Chart review, Documenting critically ill care, Time at immediate bedside, Discussing critically ill care with other medical staff and Discussing Hx and/or treatment with family
[2024-07-18 04:00] LABS: Lactate 1.6 mmol/L (<or=2.0)
[2024-07-18 04:04] LABS: BE -3 mmol/L (-2-3); HCO3 21 mmol/L (22-26); pCO2 32 mmHg (35-45); pH 7.43 (7.35-7.45); pO2 127 mmHg (80-105); sO2 100 % (95-98); tCO2 20 mmol/L (23-27)
[2024-07-18 04:05] LABS: Abs Immature Grans 0.15 10^3/uL (0.0-0.06); Absolute Basophil Count 0.02 10^3/uL (0.0-0.2); Absolute Eosinophil Count 0.07 10^3/uL (0.0-0.7); Absolute Lymphocyte Count 1.01 10^3/uL (1.2-3.4); Absolute Monocyte Count 1.05 10^3/uL (0.1-0.8); Absolute Neutrophil Count 8.07 10^3/uL (1.2-6.7); Basophils % 0.2 %; Eosinophils % 0.7 %; HGB 8.6 g/dL (13.5-17.5); Immature Grans % 1.4 %; Lymphocytes % 9.7 %; MCH 31.4 pg (27.0-33.0); MCHC 33.1 % (32.0-36.0); MCV 95 fL (80-95); MPV 9.6 fL (8.0-11.0); Monocytes % 10.1 %; Neutrophils % 77.9 %; Platelet Count 329 10^3/uL (130-400); RBC 2.74 10^6/uL (4.36-5.78); RDW 14.6 % (11.8-14.1); RDW-SD 49.8 fL; WBC 10.37 10^3/uL (4.4-10.8)
[2024-07-18 04:05] LABS: FIO2 70 %; Site Right Radial
[2024-07-18 04:06] LABS: FIO2L 40 L
[2024-07-18] MEDS: Furosemide 40 MG/4 ML VIAL IVP ×2 (04:18→16:22)
[2024-07-18 04:28] LABS: ALT 31 U/L (16-63); AST 36 U/L (15-37); Albumin 2.3 g/dL (3.4-5.0); Alkaline Phosphatase 108 U/L (46-116); Anion Gap 6.6 mmol/L (3-11); BUN 24 mg/dL (7-18); Bilirubin, Total 0.33 mg/dL (0.2-1.0); CO2 25.4 mmol/L (21.0-32.0); CREATININE 1.5 mg/dL (0.70-1.30); Calcium 8.8 mg/dL (8.5-10.1); Chloride 106 mmol/L (98-107); Estimated GFR 48.25 (mL/min/1.73m2); Glucose 82 mg/dL (74-106); Potassium 4.3 mmol/L (3.5-5.1); Sodium 138 mmol/L (136-145); Total Protein 6.4 g/dL (6.4-8.2); Troponin I 14 ng/L (<or=76)
[2024-07-18] MEDS: PIPERACILLIN/TAZO 3.375 GM in Normal Saline 50 ML IVPB ×2 (04:30→12:25)
[2024-07-18 04:31] LABS: NT-proBNP 2811 pg/mL (<300)
[2024-07-18] MEDS: methylPREDNISolone SUCC 125 MG VIAL IVP ×2 (04:44→17:29)
[2024-07-18] MEDS: Normal Saline Flush 10 ML SYR IVP ×4 (04:45→17:29)
[2024-07-18 04:57] LABS: COVID-19 PCR Negative (Negative); Influenza A PCR Negative (Negative); Influenza B PCR Negative (Negative); RSV PCR Negative (Negative)
[2024-07-18 05:03] LABS: Source Nasopharynx
--- NOTE | 2024-07-18 05:17 | DI.CT_ITS ---
Exam(s) CT CHEST WO EXAM: CT CHEST WO CLINICAL HISTORY: Acute hypoxic respiratory failure. TECHNIQUE: Multi planar reconstructions were performed. CONTRAST MATERIAL: None COMPARISON: CT CT CHEST PE CTA from 07/16/2024 FINDINGS: CHEST: LUNGS: Compared to 07/16/2024 there has been significant increase in size and amount of bilateral vladislav g infiltrates, presently involving all lobes and there are now very small bilateral pleural effusions . The infiltrates are predominately [id number]. No cavitation. Multiple tiny calcified gran ulomas are again noted in both lung cha and there is again noted and unchanged subpleural nodule i n the lateral basal segment of the left lower lobe which measures 7 mm. MEDIASTINUM: No obvious high lower adenopathy. Small lymph nodes in the anterior left side mediastin al fat again noted. Visualized thyroid unremarkable.No obvious axillary adenopathy CARDIAC: Heart size is normal. There is no pericardial effusion.Caliber of the thoracic aorta is wit hin normal limits. VISUALIZED UPPER ABDOMEN:[id number] endo biliary stents are noted in the right and left hepatic tari ts and in the mid-upper CBD. Benign cysts are again noted both kidneys. No adrenal masses. OSSEOUS: No significant osseous lesions.. IMPRESSION: 1. Compared to the prior CT scan of 07/16/2024 (2 days ago) there has been interval development of no w extensive bilateral confluent ground-glass infiltrates throughout both lungs, representing signific ant deterioration when compared to 2 days ago. Most probably infectious/inflammatory/hypersensitivit y pneumonitis. Does not have the appearance of pulmonary edema. 2. Endo biliary stents are again noted in the abdomen, discussed on recent abdominal CT report. RADIATION DOSE DELIVERED: 263.62mGy.cm Total DLP DATA REPOSITORY: All CT scans at this facility are submitted to the National Radiology Data Registry (NRDR) Dose Index Registry (DIR) with the [employer] (A[employer]). RADIATION OPTIMIZATION: All CT scans at this facility use at least one of these dose optimization te chniques: automated exposure control; mA and/or kV adjustment per patient size (includes targeted exa ms where dose is matched to clinical indication); or iterative reconstruction.
--- NOTE | 2024-07-18 05:46 | DI.VRAD_ITS ---
PROCEDURE INFORMATION: Exam: CT Chest Without Contrast; Diagnostic Exam date and time: 07/18/2024 5:12 AM Age: 74 years old Clinical indication: Other: Acute hypoxic respiratory failure; Prior surgery; Surgery date: 6+ months; Surgery type: Stents TECHNIQUE: Imaging protocol: Diagnostic computed tomography of the chest without contrast. 3D rendering (Not supervised by radiologist): MIP and/or 3D reconstructed images were created by the technologist. Radiation optimization: All CT scans at this facility use at least one of these dose optimization techniques: automated exposure control; mA and/or kV adjustment per patient size (includes targeted exams where dose is matched to clinical indication); or iterative reconstruction. COMPARISON: CT CHEST PE CTA 07/16/2024 12:40 PM FINDINGS: Tubes, catheters and devices: Biliary catheter is present. No biliary ductal dilatation. Right chest wall port. Lungs: Interval development of extensive confluent bilateral ground-glass airspace opacities with geographic and lobular areas of sparing, most compatible with infectious pneumonia and/or ARDS, in this case superimposed on underlying lung disease such as hypersensitivity pneumonitis or medication toxicity based on the prior study's appearance. Pleural spaces: Tracer and small bilateral pleural effusions. Heart: Unremarkable. No cardiomegaly. No pericardial effusion. Lymph nodes: Mildly prominent mediastinal lymph nodes, measuring up to 1.5 cm right paratracheal. Vasculature: Unremarkable. No aortic aneurysm. Liver: Possible hepatic cirrhosis. Spleen: Borderline splenomegaly. Kidneys: Right renal cyst. Bones/joints: Unremarkable. No acute fracture. Soft tissues: Unremarkable. IMPRESSION: 1. Interval development of extensive confluent bilateral ground-glass airspace opacities with geographic and lobular areas of sparing, most compatible with infectious pneumonia and/or ARDS, in this case superimposed on underlying lung disease such as hypersensitivity pneumonitis or medication toxicity based on the prior study's appearance. 2. Borderline splenomegaly. 3. Mildly prominent mediastinal lymph nodes, measuring up to 1.5 cm right paratracheal. 4. Possible hepatic cirrhosis. Dictated and Authenticated by: Pipo Dowell MD. Orderin Aguilar Perez MD
[2024-07-18] MEDS: Acetaminophen 500 MG TAB 1000 MG PO (06:25)
[2024-07-18] MEDS: LORazepam 2 MG/ML VIAL IVP ×2 (06:55→11:36)
--- NOTE | 2024-07-18 07:58 | W.PC.ACHO ---
Registration Status: Primary Language: Preferred Language: ED Information & Data Chief Complaint Fever 07/16/24 11:21 Triage Note Pt has had fevers on and off 07/16/24 11:08 for a week, cough as well. Went to cancer center, sent over here. Going through chemo currently. Cancer center sent him here d/t concerns. Has had 3 e. coli infections in 6 months per . 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 Has had mild cough as well, feels SOB walking. Most Recent Vital Signs Temperature 39.2 C H 07/18/24 06:20 Temperature Source Tympanic 07/18/24 06:20 Pulse 86 07/18/24 07:02 Pulse Rhythm Regular 07/16/24 16:32 Pulse 86 07/18/24 07:02 Respiratory Rate 21 07/18/24 07:02 Respiratory Effort Normal 07/18/24 05:48 Respiratory Depth Normal 07/18/24 05:48 Respiratory Pattern Normal 07/18/24 05:48 Blood Pressure 150/77 H 07/18/24 07:02 Blood Pressure Mean 94 07/18/24 07:02 Blood Pressure Position Supine 07/18/24 05:48 Pulse Oximetry 97 07/18/24 07:02 Oxygen Delivery Method Cpap 07/18/24 05:48 Oxygen Flow Rate 40 07/18/24 04:36 Fraction of Inspired Oxygen (FIO2) 45 07/18/24 05:48 Pain Level 0 07/18/24 03:12 Comment MAP 91 07/18/24 04:27 Allergies cisplatin Allergy (Severe, Verified 07/16/24 11:18) Anaphylaxis sotalol Adverse Reaction (Severe, Verified 07/16/24 11:18) bradycardia Precautions Isolation Droplet precaution 07/16/24 11:13 Active Medications Generic Name Dose Route Start Last Admin Trade Name Freq PRN Reason Stop Dose Admin Acetaminophen 1,000 mg 07/18/24 06:12 07/18/24 06:25 Acetaminophen 500 Mg Tab PO 1,000 mg Q8H PRN Administration Apixaban 5 mg 07/16/24 20:00 07/17/24 21:06 Apixaban 5 Mg Tab PO 5 mg BID RAPHAEL Administration Bupropion HCl 300 mg 07/17/24 10:30 07/17/24 10:40 Bupropion-Xl 150 Mg Tabcr PO 300 mg QAM RAPHAEL Administration Colchicine 0.6 mg 07/17/24 08:30 07/17/24 08:25 Colchicine 0.6 Mg Tab PO 0.6 mg DAILY RAPHAEL Administration Gabapentin 300 mg 07/17/24 08:30 07/17/24 08:26 Gabapentin 300 Mg Cap PO 300 mg QAM RAPHAEL Administration Gabapentin 900 mg 07/16/24 20:00 07/17/24 21:06 Gabapentin 300 Mg Cap PO 900 mg HS RAPHAEL Administration Piperacillin Sod/Tazobactam 50 mls @ 12.5 mls/hr 07/18/24 04:00 07/18/24 04:30 Sod 3.375 gm/ Sodium Chloride IVPB 12.5 mls/hr Q8H RAPHAEL Administration Lorazepam 0.5 - 1 mg 07/18/24 06:34 07/18/24 06:55 Lorazepam 2 Mg/Ml Vial IVP 0.5 mg Q4H PRN PRN Administration Magnesium Oxide 400 mg 07/16/24 20:00 07/17/24 21:06 Magnesium Oxide 400 Mg Tab PO 400 mg BID RAPHAEL Administration Metoprolol Tartrate 50 mg 07/16/24 20:00 07/17/24 21:06 Metoprolol 50 Mg Tab PO 50 mg BID RAPHAEL Administration Pantoprazole Sodium 40 mg 07/17/24 07:30 07/17/24 08:25 Pantoprazole 40 Mg Tabcr PO 40 mg DAILY@0730 RAPHAEL Administration Polyethylene Glycol 17 gm 07/16/24 14:10 07/16/24 20:25 Polyethylene Glycol 3350 17 Gm Packet PO 17 gm DAILY PRN PRN Administration Constipation Prednisone 40 mg 07/17/24 08:30 07/17/24 08:25 Prednisone 20 Mg Tab PO 40 mg DAILY RAPHAEL Administration Sodium Chloride 0 ml 07/17/24 16:45 07/18/24 04:45 Normal Saline Flush 10 Ml Syr IVP 40 ml PRN PRN Administration Tamsulosin HCl 0.4 mg 07/17/24 08:30 07/17/24 08:26 Tamsulosin 0.4 Mg Capcr PO 0.4 mg DAILY RAPHAEL Administration Torsemide 5 mg 07/17/24 08:30 07/17/24 08:26 Torsemide 10 Mg Tab PO 5 mg DAILY RAPHAEL Administration Tramadol HCl 50 mg 07/16/24 23:39 07/17/24 21:06 Tramadol 50 Mg Tab PO 50 mg Q8H PRN PRN Administration IV IV Catheter Type [Right Medial Port-a-cath (double) Port] Diagnostics 07/18/24 07/18/24 07/18/24 Range/Units 14:00 05:35 04:00 WBC Cancelled (4.4-10.8) 10^3/uL RBC Cancelled (4.36-5.78) 10^6/uL Hgb Cancelled (13.5-17.5) g/dL Hct Cancelled (40.0-50.0) % MCV Cancelled (80-95) fL MCH Cancelled (27.0-33.0) pg MCHC Cancelled (32.0-36.0) % RDW Cancelled (11.8-14.1) % Plt Count Cancelled (130-400) 10^3/uL MPV Cancelled (8.0-11.0) fL Immature Gran % Cancelled % Neutrophils % Cancelled % Band Neutrophils % Cancelled Lymphocytes % Cancelled % Atypical Lymphs % Cancelled Monocytes % Cancelled % Eosinophils % Cancelled % Basophils % Cancelled % Metamyelocytes % Cancelled Myelocytes % Cancelled Promyelocytes % Cancelled Other Cells % Cancelled Nucleated RBC % Cancelled (0.0-0.3) % Absolute Neutrophils Cancelled (1.2-6.7) 10^3/uL Absolute Lymphocytes Cancelled (1.2-3.4) 10^3/uL Absolute Monocytes Cancelled (0.1-0.8) 10^3/uL Absolute Eosinophils Cancelled (0.0-0.7) 10^3/uL Absolute Basophils Cancelled (0.0-0.2) 10^3/uL RBC Morphology Cancelled Polychromasia Cancelled Hypochromasia Cancelled Poikilocytosis Cancelled Basophilic Stippling Cancelled Anisocytosis Cancelled Microcytosis Cancelled Macrocytosis Cancelled Spherocytes Cancelled Tear Drop Cells Cancelled Ovalocytes Cancelled Stomatocytes Cancelled Canela-Hawthorne Bodies Cancelled Bert Cells/Echinocytes Cancelled Acanthocytes (Spur) Cancelled Schistocytes Cancelled ABG Sample Site ABG pH (7.35-7.45) ABG pCO2 (35-45) mmHg ABG pO2 (80-105) mmHg ABG HCO3 (22-26) mmol/L ABG Total CO2 (23-27) mmol/L ABG O2 Saturation (95-98) % ABG Base Excess (-2-3) mmol/L VBG Lactate (<or=2.0) mmol/L Oxygen Liter Flow L FiO2 % Sodium Pending Cancelled (136-145) mmol/L Potassium Pending Cancelled (3.5-5.1) mmol/L Chloride Pending Cancelled (98-107) mmol/L Carbon Dioxide Pending Cancelled (21.0-32.0) mmol/L Anion Gap Pending Cancelled (3-11) mmol/L BUN Pending Cancelled (7-18) mg/dL Creatinine Pending Cancelled (0.70-1.30) mg/dL Est GFR (CKD-EPI 2020) Pending Cancelled (mL/min/1.73m2) Glucose Pending Cancelled (74-106) mg/dL Calcium Pending Cancelled (8.5-10.1) mg/dL Total Bilirubin Cancelled (0.2-1.0) mg/dL AST Cancelled (15-37) U/L ALT Cancelled (16-63) U/L Alkaline Phosphatase Cancelled (46-116) U/L Troponin I (<or=76) ng/L NT-Pro-B Natriuret Pep (<300) pg/mL Total Protein Cancelled (6.4-8.2) g/dL Albumin Cancelled (3.4-5.0) g/dL COVID-19 Source SARS-CoV-2 (PCR) (Negative) EBV DNA, Quant Influenza Type A (PCR) (Negative) Influenza Type B (PCR) (Negative) RSV (PCR) Cancelled (Negative) 07/18/24 07/18/24 07/18/24 Range/Units 04:00 04:00 04:00 WBC (4.4-10.8) 10^3/uL RBC (4.36-5.78) 10^6/uL Hgb (13.5-17.5) g/dL Hct (40.0-50.0) % MCV (80-95) fL MCH (27.0-33.0) pg MCHC (32.0-36.0) % RDW (11.8-14.1) % Plt Count (130-400) 10^3/uL MPV (8.0-11.0) fL Immature Gran % % Neutrophils % % Band Neutrophils % Lymphocytes % % Atypical Lymphs % Monocytes % % Eosinophils % % Basophils % % Metamyelocytes % Myelocytes % Promyelocytes % Other Cells % Nucleated RBC % (0.0-0.3) % Absolute Neutrophils (1.2-6.7) 10^3/uL Absolute Lymphocytes (1.2-3.4) 10^3/uL Absolute Monocytes (0.1-0.8) 10^3/uL Absolute Eosinophils (0.0-0.7) 10^3/uL Absolute Basophils (0.0-0.2) 10^3/uL RBC Morphology Polychromasia Hypochromasia Poikilocytosis Basophilic Stippling Anisocytosis Microcytosis Macrocytosis Spherocytes Tear Drop Cells Ovalocytes Stomatocytes Canela-Hawthorne Bodies Bert Cells/Echinocytes Acanthocytes (Spur) Schistocytes ABG Sample Site ABG pH (7.35-7.45) ABG pCO2 (35-45) mmHg ABG pO2 (80-105) mmHg ABG HCO3 (22-26) mmol/L ABG Total CO2 (23-27) mmol/L ABG O2 Saturation (95-98) % ABG Base Excess (-2-3) mmol/L VBG Lactate (<or=2.0) mmol/L Oxygen Liter Flow L FiO2 % Sodium (136-145) mmol/L Potassium (3.5-5.1) mmol/L Chloride (98-107) mmol/L Carbon Dioxide (21.0-32.0) mmol/L Anion Gap (3-11) mmol/L BUN (7-18) mg/dL Creatinine (0.70-1.30) mg/dL Est GFR (CKD-EPI 2020) (mL/min/1.73m2) Glucose (74-106) mg/dL Calcium (8.5-10.1) mg/dL Total Bilirubin (0.2-1.0) mg/dL AST (15-37) U/L ALT (16-63) U/L Alkaline Phosphatase (46-116) U/L Troponin I (<or=76) ng/L NT-Pro-B Natriuret Pep (<300) pg/mL Total Protein (6.4-8.2) g/dL Albumin (3.4-5.0) g/dL COVID-19 Source SARS-CoV-2 (PCR) Cancelled (Negative) EBV DNA, Quant Influenza Type A (PCR) Cancelled Negative (Negative) Influenza Type B (PCR) Cancelled Negative (Negative) RSV (PCR) Negative (Negative) 07/18/24 07/18/24 07/18/24 Range/Units 04:00 04:00 03:55 WBC (4.4-10.8) 10^3/uL RBC (4.36-5.78) 10^6/uL Hgb (13.5-17.5) g/dL Hct (40.0-50.0) % MCV (80-95) fL MCH (27.0-33.0) pg MCHC (32.0-36.0) % RDW (11.8-14.1) % Plt Count (130-400) 10^3/uL MPV (8.0-11.0) fL Immature Gran % % Neutrophils % % Band Neutrophils % Lymphocytes % % Atypical Lymphs % Monocytes % % Eosinophils % % Basophils % % Metamyelocytes % Myelocytes % Promyelocytes % Other Cells % Nucleated RBC % (0.0-0.3) % Absolute Neutrophils (1.2-6.7) 10^3/uL Absolute Lymphocytes (1.2-3.4) 10^3/uL Absolute Monocytes (0.1-0.8) 10^3/uL Absolute Eosinophils (0.0-0.7) 10^3/uL Absolute Basophils (0.0-0.2) 10^3/uL RBC Morphology Polychromasia Hypochromasia Poikilocytosis Basophilic Stippling Anisocytosis Microcytosis Macrocytosis Spherocytes Tear Drop Cells Ovalocytes Stomatocytes Canela-Hawthorne Bodies Bert Cells/Echinocytes Acanthocytes (Spur) Schistocytes ABG Sample Site Right Radial ABG pH 7.43 (7.35-7.45) ABG pCO2 32 L (35-45) mmHg ABG pO2 127 H (80-105) mmHg ABG HCO3 21 L (22-26) mmol/L ABG Total CO2 20 L (23-27) mmol/L ABG O2 Saturation 100 H (95-98) % ABG Base Excess -3 L (-2-3) mmol/L VBG Lactate (<or=2.0) mmol/L Oxygen Liter Flow 40 L FiO2 70 % Sodium (136-145) mmol/L Potassium (3.5-5.1) mmol/L Chloride (98-107) mmol/L Carbon Dioxide (21.0-32.0) mmol/L Anion Gap (3-11) mmol/L BUN (7-18) mg/dL Creatinine (0.70-1.30) mg/dL Est GFR (CKD-EPI 2020) (mL/min/1.73m2) Glucose (74-106) mg/dL Calcium (8.5-10.1) mg/dL Total Bilirubin (0.2-1.0) mg/dL AST (15-37) U/L ALT (16-63) U/L Alkaline Phosphatase (46-116) U/L Troponin I (<or=76) ng/L NT-Pro-B Natriuret Pep (<300) pg/mL Total Protein (6.4-8.2) g/dL Albumin (3.4-5.0) g/dL COVID-19 Source Cancelled Nasopharynx SARS-CoV-2 (PCR) Negative (Negative) EBV DNA, Quant Influenza Type A (PCR) (Negative) Influenza Type B (PCR) (Negative) RSV (PCR) (Negative) 07/18/24 07/17/24 Range/Units 03:53 16:26 WBC 10.37 (4.4-10.8) 10^3/uL RBC 2.74 L (4.36-5.78) 10^6/uL Hgb 8.6 L (13.5-17.5) g/dL Hct 26.0 L (40.0-50.0) % MCV 95 (80-95) fL MCH 31.4 (27.0-33.0) pg MCHC 33.1 (32.0-36.0) % RDW 14.6 H (11.8-14.1) % Plt Count 329 (130-400) 10^3/uL MPV 9.6 (8.0-11.0) fL Immature Gran % 1.4 % Neutrophils % 77.9 % Band Neutrophils % Lymphocytes % 9.7 % Atypical Lymphs % Monocytes % 10.1 % Eosinophils % 0.7 % Basophils % 0.2 % Metamyelocytes % Myelocytes % Promyelocytes % Other Cells % Nucleated RBC % 0.0 (0.0-0.3) % Absolute Neutrophils 8.07 H (1.2-6.7) 10^3/uL Absolute Lymphocytes 1.01 L (1.2-3.4) 10^3/uL Absolute Monocytes 1.05 H (0.1-0.8) 10^3/uL Absolute Eosinophils 0.07 (0.0-0.7) 10^3/uL Absolute Basophils 0.02 (0.0-0.2) 10^3/uL RBC Morphology Polychromasia Hypochromasia Poikilocytosis Basophilic Stippling Anisocytosis Microcytosis Macrocytosis Spherocytes Tear Drop Cells Ovalocytes Stomatocytes Canela-Hawthorne Bodies [place] Cells/Echinocytes Acanthocytes (Spur) Schistocytes ABG Sample Site ABG pH (7.35-7.45) ABG pCO2 (35-45) mmHg ABG pO2 (80-105) mmHg ABG HCO3 (22-26) mmol/L ABG Total CO2 (23-27) mmol/L ABG O2 Saturation (95-98) % ABG Base Excess (-2-3) mmol/L VBG Lactate 1.6 (<or=2.0) mmol/L Oxygen Liter Flow L FiO2 % Sodium 138 (136-145) mmol/L Potassium 4.3 (3.5-5.1) mmol/L Chloride 106 (98-107) mmol/L Carbon Dioxide 25.4 (21.0-32.0) mmol/L Anion Gap 6.6 (3-11) mmol/L BUN 24 H (7-18) mg/dL Creatinine 1.5 H (0.70-1.30) mg/dL Est GFR (CKD-EPI 2020) 48.25 (mL/min/1.73m2) Glucose 82 (74-106) mg/dL Calcium 8.8 (8.5-10.1) mg/dL Total Bilirubin 0.33 (0.2-1.0) mg/dL AST 36 (15-37) U/L ALT 31 (16-63) U/L Alkaline Phosphatase 108 (46-116) U/L Troponin I 14 (<or=76) ng/L NT-Pro-B Natriuret Pep 2811 H (<300) pg/mL Total Protein 6.4 (6.4-8.2) g/dL Albumin 2.3 L (3.4-5.0) g/dL COVID-19 Source SARS-CoV-2 (PCR) (Negative) EBV DNA, Quant Pending Influenza Type A (PCR) (Negative) Influenza Type B (PCR) (Negative) RSV (PCR) (Negative) 07/18/24 06:36 Blood Culture - Pending Blood 07/18/24 06:36 Blood Culture - Pending Blood 07/16/24 11:50 Blood Culture - Preliminary Blood NO GROWTH 24 HOURS 07/16/24 11:35 Blood Culture - Preliminary Blood NO GROWTH 24 HOURS Intake and Output - 24 Hour Total 07/16/24 10:58 thru 07/18/24 06:30 Intake Total 5567.5 Output Total 4915 Balance 652.5 Weight 94.3 kg Intake: IV 5447.5 Oral 120 Output: Urine 4915 Other: Urine Color Pale Yellow Urine Appearance Clear Urine Odor None Comment Patient has put out 2 voidings of 400 mL, one pale yellow and one plain pale. An additional unmeasured amount was voided by patient and soaked into bed due to patient not realizing cap was on urinal. Falls Risk Assessment History of Falls No History 07/18/24 05:48 Contributing Factors No Factors,Unstable, 07/18/24 05:48 Impairments Ambulatory Aids Independent 07/18/24 05:48 Tubes/Lines W/no contributing factors 07/18/24 05:48 Gait Evaluation W/any additional score 07/18/24 05:48 Cognition No cognitive impairment 07/18/24 05:48 Fall Total Score 36 07/18/24 05:48 Level of Risk Moderate Risk 07/18/24 05:48 Problems (Last Reviewed 05/21/24 @ 14:43 by Claudio Perez MD) BPH (benign prostatic hyperplasia) (Chronic) HTN (hypertension) (Chronic) Gout (Chronic) Depression (Chronic) Cholangiocarcinoma (Acute) Weakness (Acute) v v v v v v v v v Sending and/or Receiving Nurses: Please use comment section below to note any information pertinent to the patient hand-off not included above. Information / Comments: Report received from: Michelle Marie RN
[2024-07-18] MEDS: buPROPion-XL 150 MG TABCR 300 MG PO (09:31)
[2024-07-18] MEDS: Gabapentin 300 MG CAP PO (09:32)
[2024-07-18] MEDS: Colchicine 0.6 MG TAB PO (09:34)
[2024-07-18] MEDS: predniSONE 20 MG TAB 40 MG PO (09:34)
[2024-07-18] MEDS: Tamsulosin 0.4 MG CAPCR PO (09:34)
[2024-07-18] MEDS: Metoprolol 50 MG TAB PO (09:35)
[2024-07-18] MEDS: Magnesium Oxide 400 MG TAB PO (09:35)
[2024-07-18] MEDS: VANCOMYCIN 2,000 MG in Normal Saline 500 ML 250 MG IVPB (09:36)
[2024-07-18] MEDS: Apixaban 5 MG TAB PO (09:36)
[2024-07-18] MEDS: Pantoprazole 40 MG TABCR PO (09:36)
--- NOTE | 2024-07-18 09:42 | NUR.NOTE ---
Nursing Note: IV Vanco (ordered as one now) could not be started until blood cultures were drawn, and the current pip/kayley was done infusing d/t them being incompatable. Will try to get another IV site, and will start vanco as soon as the pip/kayley is done.
--- NOTE | 2024-07-18 12:00 | W.PM.DS.N ---
Date of service: 07/18/24 Time of Service: 12:00 DS: Diagnosis Discharge Diagnosis (1) Weakness: Status: Acute (2) Cholangiocarcinoma: Status: Acute (3) Depression: Status: Chronic (4) Gout: Status: Chronic (5) HTN (hypertension): Status: Chronic (6) BPH (benign prostatic hyperplasia): Status: Chronic Discharge Plan Disposition Patient Disposition: Transfer-Acute Inpatient Care Specific Acute Inpt Facility: [facility] Condition: Critical Discharge Details Reason For Visit: Pneumonia Admit Date/Time: 07/16/24 14:05 Admit Provider: Thomas Kennedy Attending Provider: Thomas Kennedy Primary Care Provider: Ricky East Hospital Course Hospital Course: This is a 74-year-old gentleman who was admitted to the hospital on 07/16/2024 for generalized weakness as well as immunosuppression due to chemotherapeutic agents. Patient states that for a week prior to his admission his energy level had continued to drop he discussed the case with his oncologist Dr. East who recommended evaluation in the ED. Workup in the ED was fairly benign with the exception of a chest x-ray which showed a possible pneumonia and a CT done at that time did show bilateral groundglass infiltrates. The patient was started on antibiotics but unfortunately on the night of the /morning of the the patient became hypoxic requiring transfer to the ICU for BiPAP support. At that time a repeat CT scan was done which showed extensive confluent bilateral groundglass airspace opacities most compatible with infectious pneumonia and/or ARDS but also could be due to pneumonitis or medication toxicity. Considering these new findings I reached out to [facility] to see if the patient could be excepted into transfer but no beds were available. I then reached out to [facility] and discussed the case with Dr. Cyr of the critical care service who recommended to not put the patient in ICU considering his ABGs were fairly benign. I then reached out to a Dr. Magallon of the hospitalist service and he excepted the patient in transfer. I have concerns that the patient is currently fairly stable but his trajectory is not improving and I believe that he will require significantly more critical care as well as evaluation by an in-house oncologist. We do not have critical care or inpatient oncology. Of note, at this time the patient's BNP went from 747 to 2811, but his physical exam remains fairly benign. Serologies for tickborne as well as viral illnesses are pending the patient is negative for SARS or COVID RSV is also negative. Legionella and mycoplasma are also pending. The patient is currently in stable but critical condition. The patient is on chronic Eliquis due to paroxysmal atrial fibrillation. Home Meds and New Rx's Prescriptions: Continued acyclovir 800 mg tablet 800 mg PO ONCE PRN allopurinol 100 mg tablet 100 mg PO ONCE PRN apixaban 5 mg tablet 5 mg PO BID bupropion HCl [Wellbutrin XL] 300 mg tablet extended release 24 hr 300 mg PO QAM colchicine 0.6 mg tablet 0.6 mg PO ONCE PRN gabapentin 300 mg capsule 300 mg PO DIRECTED Rx Instructions: Take 2 capsules BID. 1 tablet in the AM and 3 tablets in PM. magnesium oxide 400 mg magnesium capsule 400 mg PO BID metoprolol tartrate 25 mg tablet 50 mg PO BID ondansetron 8 mg tablet,disintegrating 8 mg PO TID PRN pantoprazole 40 mg tablet,delayed release (DR/EC) 40 mg PO DAILY Patient Comments: TAKE ONE TABLET BY MOUTH ONCE DAILY prednisone 20 mg tablet 40 mg PO DAILY prochlorperazine maleate 10 mg tablet 10 mg PO QID PRN Patient Comments: TAKE 1 TABLET BY MOUTH EVERY 6 HOURS NEEDED FOR NAUSEA ropinirole 4 mg tablet extended release 24 hr 4 mg PO DAILY PRN tamsulosin [Flomax] 0.4 mg capsule 0.4 mg PO DAILY torsemide 20 mg tablet 5 mg PO DAILY darbepoetin miracle in polysorbat 200 mcg/0.4 mL pen injector 200 mcg subcut .once] gemcitabine 100 mg/mL solution 1,200 mg IV ONCE epinephrine [EpiPen] 0.3 mg/0.3 mL auto-injector 0.3 mg IM ONCE PRN (Reason: anaphylaxis) Qty: 1 0RF Rx Instructions: as a single dose; may repeat once Discharge Instructions Activity:: Activity as Tolerated Equipment/Supplies:: No Equipment Needed Diet:: As Tolerated Discharge Orders Discharge Orders: Discharge Order (Routine); Ordered 07/18/24 Ordered By: Thomas Kennedy DS: Summary Time Spent with Patient providing and/or coordinating discharge services: Greater than 30 minutes Status at Discharge Functional status at discharge: bed bound Overall status at discharge: patient is not back to baseline Mental Status: mental status grossly normal Speech and Movement: speech and movement normal Mood: congruent mood Affect: normal affect Quality:SDOH Health Related Social Needs: Health related social needs feeling lonely/isolated (Z60.8) Exam Narrative Exam Narrative: Head eyes ears nose and throat: Normocephalic atraumatic mucous membranes are moist extraocular motions are intact pale scleral icterus bilat BIPAP in place Neck: No lymphadenopathy no JVD Cardiovascular: Regular rate and rhythm no murmur rubs or gallop Lungs: Clear to auscultation bilaterally with good air exchange Abdomen: Soft nontender nondistended bowel sounds active Extremities: No sinus clubbing or edema Neurologic: Cranial nerves II through XII intact as tested reflexes upper extremity normal as tested Psych: Alert and oriented x 3 no apparent distress General: 74-year-old gentleman appears his stated age no apparent distress Psych Mental Status: mental status grossly normal Speech and Movement: speech and movement normal Mood: congruent mood Affect: normal affect DS: Data Vitals/I&O Vitals and I&O: Vital Signs Temperature 36.8 C 07/18/24 09:30 Temperature Source Tympanic 07/18/24 09:30 Pulse 68 07/18/24 11:07 Pulse Rhythm Regular 07/16/24 16:32 Pulse 86 07/18/24 07:02 Respiratory Rate 25 H 07/18/24 11:07 Respiratory Effort Normal 07/18/24 05:48 Respiratory Depth Normal 07/18/24 05:48 Respiratory Pattern Normal 07/18/24 05:48 Blood Pressure 150/77 H 07/18/24 07:02 Blood Pressure Mean 94 07/18/24 07:02 Blood Pressure Position Supine 07/18/24 05:48 Pulse Oximetry 94 07/18/24 11:27 Oxygen Delivery Method Bi-pap 07/18/24 09:30 Oxygen Flow Rate 40 07/18/24 04:36 Fraction of Inspired Oxygen (FIO2) 35 07/18/24 11:27 Pain Level 0 07/18/24 03:12 Comment 154/79 (102) 07/18/24 09:30 Intake & Output 07/17/24 07/18/24 07/18/24 23:59 11:59 23:59 Intake Total 1182.5 / 3127.5 1050 / 1050 Output Total 1050 / 2650 2515 / 2515 Balance 132.5 / 477.5 -1465 / -1465 Weight 94.3 kg Intake: IV 1182.5 / 3127.5 1050 / 1050 Output: Urine 1050 / 2650 2515 / 2515 Other: Urine Color Yellow Pale Urine Appearance Clear Clear Urine Odor Normal None Comment Patient has put out 2 voidings of 400 mL, one pale yellow and one plain pale. An additional unmeasured amount was voided by patient and soaked into bed due to patient not realizing cap was on urinal. Data Completed and Pending Labs on day of discharge: Labs from last 24 hours 07/18/24 07/18/24 07/18/24 16:00 14:00 05:35 WBC Cancelled RBC Cancelled Hgb Cancelled Hct Cancelled MCV Cancelled MCH Cancelled MCHC Cancelled RDW Cancelled Plt Count Cancelled MPV Cancelled Immature Gran % Cancelled Neutrophils % Cancelled Band Neutrophils % Cancelled Lymphocytes % Cancelled Atypical Lymphs % Cancelled Monocytes % Cancelled Eosinophils % Cancelled Basophils % Cancelled Metamyelocytes % Cancelled Myelocytes % Cancelled Promyelocytes % Cancelled Other Cells % Cancelled Nucleated RBC % Cancelled Absolute Neutrophils Cancelled Absolute Lymphocytes Cancelled Absolute Monocytes Cancelled Absolute Eosinophils Cancelled Absolute Basophils Cancelled RBC Morphology Cancelled Polychromasia Cancelled Hypochromasia Cancelled Poikilocytosis Cancelled Basophilic Stippling Cancelled Anisocytosis Cancelled Microcytosis Cancelled Macrocytosis Cancelled Spherocytes Cancelled Tear Drop Cells Cancelled Ovalocytes Cancelled Stomatocytes Cancelled Canela-Radcliff Bodies Cancelled Bert Cells/Echinocytes Cancelled Acanthocytes (Spur) Cancelled Schistocytes Cancelled ABG Sample Site ABG pH ABG pCO2 ABG pO2 ABG HCO3 ABG Total CO2 ABG O2 Saturation ABG Base Excess VBG Lactate Oxygen Liter Flow FiO2 Sodium Pending Cancelled Potassium Pending Cancelled Chloride Pending Cancelled Carbon Dioxide Pending Cancelled Anion Gap Pending Cancelled BUN Pending Cancelled Creatinine Pending Cancelled Est GFR (CKD-EPI 2020) Pending Cancelled Glucose Pending Cancelled Calcium Pending Cancelled Total Bilirubin Cancelled AST Cancelled ALT Cancelled Alkaline Phosphatase Cancelled Troponin I NT-Pro-B Natriuret Pep Total Protein Cancelled Albumin Cancelled Random Vancomycin Pending COVID-19 Source SARS-CoV-2 (PCR) EBV DNA, Quant Influenza Type A (PCR) Influenza Type B (PCR) RSV (PCR) 07/18/24 07/18/24 07/18/24 04:00 04:00 04:00 WBC RBC Hgb Hct MCV MCH MCHC RDW Plt Count MPV Immature Gran % Neutrophils % Band Neutrophils % Lymphocytes % Atypical Lymphs % Monocytes % Eosinophils % Basophils % Metamyelocytes % Myelocytes % Promyelocytes % Other Cells % Nucleated RBC % Absolute Neutrophils Absolute Lymphocytes Absolute Monocytes Absolute Eosinophils Absolute Basophils RBC Morphology Polychromasia Hypochromasia Poikilocytosis Basophilic Stippling Anisocytosis Microcytosis Macrocytosis Spherocytes Tear Drop Cells Ovalocytes Stomatocytes Canela-[place] Bodies Bert Cells/Echinocytes Acanthocytes (Spur) Schistocytes ABG Sample Site ABG pH ABG pCO2 ABG pO2 ABG HCO3 ABG Total CO2 ABG O2 Saturation ABG Base Excess VBG Lactate Oxygen Liter Flow FiO2 Sodium Potassium Chloride Carbon Dioxide Anion Gap BUN Creatinine Est GFR (CKD-EPI 2020) Glucose Calcium Total Bilirubin AST ALT Alkaline Phosphatase Troponin I NT-Pro-B Natriuret Pep Total Protein Albumin Random Vancomycin COVID-19 Source SARS-CoV-2 (PCR) EBV DNA, Quant Influenza Type A (PCR) Cancelled Influenza Type B (PCR) Cancelled Negative RSV (PCR) Cancelled Negative 07/18/24 07/18/24 07/18/24 04:00 04:00 04:00 WBC RBC Hgb Hct MCV MCH MCHC RDW Plt Count MPV Immature Gran % Neutrophils % Band Neutrophils % Lymphocytes % Atypical Lymphs % Monocytes % Eosinophils % Basophils % Metamyelocytes % Myelocytes % Promyelocytes % Other Cells % Nucleated RBC % Absolute Neutrophils Absolute Lymphocytes Absolute Monocytes Absolute Eosinophils Absolute Basophils RBC Morphology Polychromasia Hypochromasia Poikilocytosis Basophilic Stippling Anisocytosis Microcytosis Macrocytosis Spherocytes Tear Drop Cells Ovalocytes Stomatocytes Canela-Radcl[place] Bodies Bert Cells/Echinocytes Acanthocytes (Spur) Schistocytes ABG Sample Site ABG pH ABG pCO2 ABG pO2 ABG HCO3 ABG Total CO2 ABG O2 Saturation ABG Base Excess VBG Lactate Oxygen Liter Flow FiO2 Sodium Potassium Chloride Carbon Dioxide Anion Gap BUN Creatinine Est GFR (CKD-EPI 2020) Glucose Calcium Total Bilirubin AST ALT Alkaline Phosphatase Troponin I NT-Pro-B Natriuret Pep Total Protein Albumin Random Vancomycin COVID-19 Source Cancelled Nasopharynx SARS-CoV-2 (PCR) Cancelled Negative EBV DNA, Quant Influenza Type A (PCR) Negative Influenza Type B (PCR) RSV (PCR) 07/18/24 07/18/24 07/17/24 03:55 03:53 16:26 WBC 10.37 RBC 2.74 L Hgb 8.6 L Hct 26.0 L MCV 95 MCH 31.4 MCHC 33.1 RDW 14.6 H Plt Count 329 MPV 9.6 Immature Gran % 1.4 Neutrophils % 77.9 Band Neutrophils % Lymphocytes % 9.7 Atypical Lymphs % Monocytes % 10.1 Eosinophils % 0.7 Basophils % 0.2 Metamyelocytes % Myelocytes % Promyelocytes % Other Cells % Nucleated RBC % 0.0 Absolute Neutrophils 8.07 H Absolute Lymphocytes 1.01 L Absolute Monocytes 1.05 H Absolute Eosinophils 0.07 Absolute Basophils 0.02 RBC Morphology Polychromasia Hypochromasia Poikilocytosis Basophilic Stippling Anisocytosis Microcytosis Macrocytosis Spherocytes Tear Drop Cells Ovalocytes Stomatocytes Canela-Radcliff Bodies Herscher Cells/Echinocytes Acanthocytes (Spur) Schistocytes ABG Sample Site Right Radial ABG pH 7.43 ABG pCO2 32 L ABG pO2 127 H ABG HCO3 21 L ABG Total CO2 20 L ABG O2 Saturation 100 H ABG Base Excess -3 L VBG Lactate 1.6 Oxygen Liter Flow 40 FiO2 70 Sodium 138 Potassium 4.3 Chloride 106 Carbon Dioxide 25.4 Anion Gap 6.6 BUN 24 H Creatinine 1.5 H Est GFR (CKD-EPI 2020) 48.25 Glucose 82 Calcium 8.8 Total Bilirubin 0.33 AST 36 ALT 31 Alkaline Phosphatase 108 Troponin I 14 NT-Pro-B Natriuret Pep 2811 H Total Protein 6.4 Albumin 2.3 L Random Vancomycin COVID-19 Source SARS-CoV-2 (PCR) EBV DNA, Quant Pending Influenza Type A (PCR) Influenza Type B (PCR) RSV (PCR) 07/18/24 08:20 Blood Blood Culture - Pending 07/18/24 08:09 Blood Blood Culture - Pending Preliminary micro results at discharge 07/18/24 08:20 Blood Culture - Pending Blood 07/18/24 08:09 Blood Culture - Pending Blood 07/16/24 11:50 Blood Culture - Preliminary Blood NO GROWTH 24 HOURS 07/16/24 11:35 Blood Culture - Preliminary Blood NO GROWTH 24 HOURS PFSH All Active Problems (Updated 07/16/24 @ 16:24 by Thomas Kennedy MD) BPH (benign prostatic hyperplasia) (Chronic) HTN (hypertension) (Chronic) Gout (Chronic) Depression (Chronic) Cholangiocarcinoma (Acute) Weakness (Acute) Sepsis (Acute) Social History Smoking/Tobacco Use Status: Never Smoking risk assessment performed?: Yes Alcohol Intake: never Substance use type: does not use Housing: house Do you feel safe at home: Yes Do you feel safe in your relationship?: Yes Additional Social history: at side, very supportive Time Spent with Patient Time Spent with Patient: 70-84 minutes4 Time was spent: preparing to see the patient(eg.review tests), obtaining and/or reviewing separately otained hiistory, ordering medications,tests, procedures, referring, communicating with other health resident care aid, indepentently interpreting results, counseling the patient and care coordination
[2024-07-18 12:50] LABS: BE -2 mmol/L (-2-3); HCO3 23 mmol/L (22-26); pCO2 38 mmHg (35-45); pH 7.39 (7.35-7.45); pO2 75 mmHg (80-105); sO2 96 % (95-98); tCO2 22 mmol/L (23-27)
[2024-07-18 12:51] LABS: FIO2 35 %; Site Left Radial
[2024-07-18 14:44] LABS: Anion Gap 6.3 mmol/L (3-11); BUN 26 mg/dL (7-18); CO2 26.7 mmol/L (21.0-32.0); CREATININE 1.6 mg/dL (0.70-1.30); Calcium 8.7 mg/dL (8.5-10.1); Chloride 105 mmol/L (98-107); Estimated GFR 44.65 (mL/min/1.73m2); Glucose 271 mg/dL (74-106); Sodium 138 mmol/L (136-145)
[2024-07-18 16:03] LABS: BE -2 mmol/L (-2-3); HCO3 22 mmol/L (22-26); pCO2 34 mmHg (35-45); pH 7.42 (7.35-7.45); pO2 63 mmHg (80-105); sO2 93 % (95-98); tCO2 21 mmol/L (23-27)
[2024-07-18 16:04] LABS: FIO2 30 %; Site Left Radial
--- NOTE | 2024-07-18 16:10 | CMACTNOTE_ITS ---
Care Management Activity Note Activity Note Text Activity Note Text: [facility] [place] for [place] by CM. Faxed to access and given to [employer].
[2024-07-18 16:51] LABS: Vancomycin, Random 22.2 ug/mL
--- NOTE | 2024-07-19 03:43 | NUR.NOTE ---
Nursing Note:[facility] ICU notified that aerobic blood culture bottle was gram positive [place] notified at 0345 07/19
[2024-07-19 23:22] LABS: Anaplasma phagocytophilum Negative (Negative); B. miyamotoi PCR Negative (Negative); Babesia divergens/MO-1 Negative (Negative); Babesia duncani Negative (Negative); Babesia microti Negative (Negative); Ehrlichia chaffeensis Negative (Negative); Ehrlichia ewingii/canis Negative (Negative); Ehrlichia muris eauclairensis Negative (Negative)
[2024-07-20 11:24] LABS: Lyme Ab w Rflx to Lyme Confirm Negative (Negative)
[2024-07-22 15:13] LABS: EBV DNA Detect/Quant, P Undetected IU/mL (Undetected)
== END 2024-07-18 18:00 | disposition short-term general hospital (02) | DRG 193 ==
LOC: ER 15:09 → MS 16:23 → ICU 07-18 05:07
PROVIDERS: Student in an Organized Health Care Education/Training Program; Admitting Provider Hospitalist; Emergency Provider Physician Assistant; PCP Internal Medicine Hematology & Oncology; Responsible Provider Hospitalist; Visit Provider Hospitalist
DX: J18.9 Pneumonia, unspecified organism (principal); J80 Acute respiratory distress syndrome; C22.1 Intrahepatic bile duct carcinoma; D84.821 Immunodeficiency due to drugs; R53.1 Weakness; Z79.899 Other long term (current) drug therapy; F32.A Depression, unspecified; N40.0 Benign prostatic hyperplasia without lower urinary tract symptoms; I10 Essential (primary) hypertension; I48.0 Paroxysmal atrial fibrillation; Z79.01 Long term (current) use of anticoagulants; K74.60 Unspecified cirrhosis of liver; R59.0 Localized enlarged lymph nodes; D64.9 Anemia, unspecified; Z45.2 Encounter for adjustment and management of vascular access device
CPT/HCPCS: 00123; 36415; 36591; 71250; 71275; 80048; 80053; 82550; 82805; 83690; 84145; 87040; 87077; 87449; 87637; 87798; 87799; 93005; 96361; 96365; 96367; 99285; 36600; 71045; 80202; 81003; 81015; 83605; 83735; 83880; 84443; 84484; 85025; 86140; 86618; 87186; 93010; 93306; 94660; 94760; 99223; 99233; 99239; 99291; J0456; J0696; J1940; J2060; J2543; J2919; J3370; J7512; Q9967

== ENCOUNTER 2024-07-30 02:39 | Outpatient (RCR) | payer OTHER, SELFPAY ==
[2024-07-15] MEDS: Normal Saline Flush 10 ML SYR IVP (08:29)
[2024-07-15 08:52] LABS: Abs Immature Grans 0.07 10^3/uL (0.0-0.06); Absolute Basophil Count 0.03 10^3/uL (0.0-0.2); Absolute Eosinophil Count 0.47 10^3/uL (0.0-0.7); Absolute Monocyte Count 0.79 10^3/uL (0.1-0.8); Absolute Neutrophil Count 5.01 10^3/uL (1.2-6.7); Basophils % 0.4 %; Eosinophils % 6.3 %; HCT 27.9 % (40.0-50.0); HGB 8.9 g/dL (13.5-17.5); Immature Grans % 0.9 %; Lymphocytes % 14.7 %; MCH 31.3 pg (27.0-33.0); MCHC 31.9 % (32.0-36.0); MCV 98 fL (80-95); MPV 9.9 fL (8.0-11.0); Monocytes % 10.6 %; Neutrophils % 67.1 %; Platelet Count 250 10^3/uL (130-400); RBC 2.84 10^6/uL (4.36-5.78); RDW 14.9 % (11.8-14.1); RDW-SD 53.9 fL; WBC 7.47 10^3/uL (4.4-10.8)
[2024-07-15 09:09] LABS: ALT 45 U/L (16-63); AST 34 U/L (15-37); Albumin 2.8 g/dL (3.4-5.0); Alkaline Phosphatase 128 U/L (46-116); Anion Gap 4.4 mmol/L (3-11); BUN 20 mg/dL (7-18); Bilirubin, Total 0.64 mg/dL (0.2-1.0); CO2 28.6 mmol/L (21.0-32.0); CREATININE 1.7 mg/dL (0.70-1.30); Chloride 103 mmol/L (98-107); Estimated GFR 41.52 (mL/min/1.73m2); Glucose 117 mg/dL (74-106); Sodium 136 mmol/L (136-145)
[2024-07-15 23:29] LABS: CA 19-9 70 U/mL (<35)
[2024-07-16] MEDS: Normal Saline Flush 10 ML SYR IVP (09:46)
[2024-07-16 11:49] LABS: FREE T4 0.95 ng/dL (0.76-1.46); TSH 1.65 uIU/mL (0.36-3.74)
[2024-07-30] MEDS: Normal Saline Flush 10 ML SYR IVP (10:58)
[2024-07-30 11:21] LABS: Abs Immature Grans 0.21 10^3/uL (0.0-0.06); Absolute Basophil Count 0.05 10^3/uL (0.0-0.2); Absolute Eosinophil Count 0.22 10^3/uL (0.0-0.7); Absolute Lymphocyte Count 1.54 10^3/uL (1.2-3.4); Absolute Monocyte Count 0.42 10^3/uL (0.1-0.8); Basophils % 0.7 %; Eosinophils % 3.3 %; HCT 29.6 % (40.0-50.0); HGB 9.3 g/dL (13.5-17.5); Immature Grans % 3.1 %; Lymphocytes % 22.8 %; MCH 30.7 pg (27.0-33.0); MCHC 31.4 % (32.0-36.0); MCV 98 fL (80-95); MPV 9.7 fL (8.0-11.0); Monocytes % 6.2 %; Neutrophils % 63.9 %; Platelet Count 253 10^3/uL (130-400); RBC 3.03 10^6/uL (4.36-5.78); RDW 15.2 % (11.8-14.1); RDW-SD 53.7 fL; WBC 6.74 10^3/uL (4.4-10.8)
[2024-07-30 11:38] LABS: ALT 75 U/L (16-63); AST 61 U/L (15-37); Albumin 2.6 g/dL (3.4-5.0); Alkaline Phosphatase 117 U/L (46-116); Anion Gap 5.8 mmol/L (3-11); BUN 34 mg/dL (7-18); Bilirubin, Total 0.28 mg/dL (0.2-1.0); CO2 27.2 mmol/L (21.0-32.0); CREATININE 1.6 mg/dL (0.70-1.30); Calcium 9.3 mg/dL (8.5-10.1); Chloride 106 mmol/L (98-107); Estimated GFR 44.65 (mL/min/1.73m2); Glucose 179 mg/dL (74-106); Magnesium 1.9 mg/dL (1.8-2.4); Potassium 4.8 mmol/L (3.5-5.1); Sodium 139 mmol/L (136-145); Total Protein 6.9 g/dL (6.4-8.2)
[2024-07-31 11:41] LABS: CA 19-9 60 U/mL (<35)
== END 2024-07-31 23:59 | disposition home or self-care (01) ==
LOC: INF 02:39
PROVIDERS: Nurse Practitioner Family; PCP Internal Medicine Hematology & Oncology; Visit Provider Internal Medicine Hematology & Oncology
DX: C22.1 Intrahepatic bile duct carcinoma (principal); R53.83 Other fatigue
CPT/HCPCS: 36591; 80053; 96523; 83735; 84439; 84443; 85025; 86301

== ENCOUNTER 2024-08-27 02:31 | Outpatient (RCR) | payer OTHER, SELFPAY ==
[2024-08-27] MEDS: Normal Saline Flush 10 ML SYR IVP (10:00)
[2024-08-27 10:01] LABS: Abs Immature Grans 0.02 10^3/uL (0.0-0.06); Absolute Basophil Count 0.02 10^3/uL (0.0-0.2); Absolute Eosinophil Count 0.31 10^3/uL (0.0-0.7); Absolute Lymphocyte Count 0.71 10^3/uL (1.2-3.4); Absolute Monocyte Count 0.39 10^3/uL (0.1-0.8); Absolute Neutrophil Count 2.57 10^3/uL (1.2-6.7); Basophils % 0.5 %; Eosinophils % 7.7 %; HCT 34.5 % (40.0-50.0); HGB 10.9 g/dL (13.5-17.5); Immature Grans % 0.5 %; Lymphocytes % 17.7 %; MCH 31.3 pg (27.0-33.0); MCHC 31.6 % (32.0-36.0); MCV 99 fL (80-95); MPV 10.6 fL (8.0-11.0); Monocytes % 9.7 %; Neutrophils % 63.9 %; Platelet Count 147 10^3/uL (130-400); RBC 3.48 10^6/uL (4.36-5.78); RDW-SD 55.2 fL; WBC 4.02 10^3/uL (4.4-10.8)
[2024-08-27 10:18] LABS: ALT 98 U/L (16-63); AST 49 U/L (15-37); Albumin 3.1 g/dL (3.4-5.0); Alkaline Phosphatase 156 U/L (46-116); Anion Gap 5.6 mmol/L (3-11); BUN 30 mg/dL (7-18); Bilirubin, Total 0.3 mg/dL (0.2-1.0); CO2 30.4 mmol/L (21.0-32.0); CREATININE 1.4 mg/dL (0.70-1.30); Calcium 9.4 mg/dL (8.5-10.1); Chloride 106 mmol/L (98-107); Estimated GFR 52.41 (mL/min/1.73m2); Glucose 172 mg/dL (74-106); Magnesium 1.8 mg/dL; Potassium 4.9 mmol/L (3.5-5.1); Sodium 142 mmol/L (136-145); Total Protein 7.1 g/dL (6.4-8.2)
[2024-08-28 12:21] LABS: CA 19-9 151 U/mL (<35)
== END 2024-08-31 23:59 | disposition home or self-care (01) ==
LOC: INF 02:31
PROVIDERS: Nurse Practitioner Family; PCP Internal Medicine Hematology & Oncology; Visit Provider Internal Medicine Hematology & Oncology
DX: C22.1 Intrahepatic bile duct carcinoma (principal)
CPT/HCPCS: 36591; 80053; 83735; 85025; 86301

== ENCOUNTER 2024-09-24 01:56 | Outpatient (RCR) | payer OTHER, SELFPAY ==
[2024-09-10] MEDS: Normal Saline Flush 10 ML SYR IVP (10:45)
[2024-09-10 11:03] LABS: Abs Immature Grans 0.02 10^3/uL (0.0-0.06); Absolute Basophil Count 0.02 10^3/uL (0.0-0.2); Absolute Eosinophil Count 0.42 10^3/uL (0.0-0.7); Absolute Lymphocyte Count 0.76 10^3/uL (1.2-3.4); Absolute Monocyte Count 0.35 10^3/uL (0.1-0.8); Absolute Neutrophil Count 1.86 10^3/uL (1.2-6.7); Basophils % 0.6 %; Eosinophils % 12.2 %; HCT 32.5 % (40.0-50.0); HGB 10.6 g/dL (13.5-17.5); Immature Grans % 0.6 %; Lymphocytes % 22.2 %; MCH 31.6 pg (27.0-33.0); MCHC 32.6 % (32.0-36.0); MCV 97 fL (80-95); MPV 10.1 fL (8.0-11.0); Monocytes % 10.2 %; Neutrophils % 54.2 %; Platelet Count 142 10^3/uL (130-400); RBC 3.35 10^6/uL (4.36-5.78); RDW 14.6 % (11.8-14.1); RDW-SD 51.9 fL; WBC 3.43 10^3/uL (4.4-10.8)
[2024-09-10 11:22] LABS: ALT 88 U/L (16-63); AST 66 U/L (15-37); Albumin 3.2 g/dL (3.4-5.0); Alkaline Phosphatase 148 U/L (46-116); Anion Gap 4.3 mmol/L (3-11); BUN 25 mg/dL (7-18); Bilirubin, Total 0.5 mg/dL (0.2-1.0); CO2 30.7 mmol/L (21.0-32.0); CREATININE 1.5 mg/dL (0.70-1.30); Calcium 9.5 mg/dL (8.5-10.1); Chloride 102 mmol/L (98-107); Estimated GFR 48.25 (mL/min/1.73m2); Glucose 201 mg/dL (74-106); Potassium 4.6 mmol/L (3.5-5.1); Sodium 137 mmol/L (136-145); Total Protein 6.9 g/dL (6.4-8.2)
[2024-09-11 07:58] LABS: CA 19-9 133 U/mL (<35)
[2024-09-24] MEDS: Normal Saline Flush 10 ML SYR IVP (07:46)
[2024-09-24 07:51] LABS: Abs Immature Grans 0.01 10^3/uL (0.0-0.06); Absolute Basophil Count 0.02 10^3/uL (0.0-0.2); Absolute Eosinophil Count 0.34 10^3/uL (0.0-0.7); Absolute Lymphocyte Count 0.78 10^3/uL (1.2-3.4); Absolute Monocyte Count 0.44 10^3/uL (0.1-0.8); Absolute Neutrophil Count 2.13 10^3/uL (1.2-6.7); Basophils % 0.5 %; Eosinophils % 9.1 %; HGB 10.1 g/dL (13.5-17.5); Immature Grans % 0.3 %; MCH 32.6 pg (27.0-33.0); MCHC 33.7 % (32.0-36.0); MCV 97 fL (80-95); MPV 9.9 fL (8.0-11.0); Monocytes % 11.8 %; Neutrophils % 57.3 %; Platelet Count 135 10^3/uL (130-400); RDW 14.9 % (11.8-14.1); RDW-SD 52.8 fL; WBC 3.72 10^3/uL (4.4-10.8)
[2024-09-24 08:10] LABS: ALT 46 U/L (16-63); AST 34 U/L (15-37); Alkaline Phosphatase 142 U/L (46-116); Anion Gap 6.9 mmol/L (3-11); BUN 27 mg/dL (7-18); Bilirubin, Total 0.3 mg/dL (0.2-1.0); CO2 27.1 mmol/L (21.0-32.0); CREATININE 1.6 mg/dL (0.70-1.30); Calcium 9.1 mg/dL (8.5-10.1); Chloride 106 mmol/L (98-107); Estimated GFR 44.65 (mL/min/1.73m2); Glucose 205 mg/dL (74-106); Magnesium 1.8 mg/dL (1.8-2.4); Potassium 4.6 mmol/L (3.5-5.1); Sodium 140 mmol/L (136-145); Total Protein 6.6 g/dL (6.4-8.2)
[2024-09-25 10:28] LABS: CA 19-9 110 U/mL (<35)
== END 2024-09-30 23:59 | disposition home or self-care (01) ==
LOC: INF 01:56
PROVIDERS: Nurse Practitioner Family; PCP Internal Medicine Hematology & Oncology; Visit Provider Internal Medicine Hematology & Oncology
DX: C22.1 Intrahepatic bile duct carcinoma (principal); Z45.2 Encounter for adjustment and management of vascular access device
CPT/HCPCS: 36591; 80053; 83735; 85025; 86301

== ENCOUNTER 2024-11-20 08:30 | Outpatient (RCR) | payer OTHER, SELFPAY ==
[2024-11-20 08:58] LABS: Abs Immature Grans 0.02 10^3/uL (0.0-0.06); Absolute Basophil Count 0.02 10^3/uL (0.0-0.2); Absolute Eosinophil Count 0.29 10^3/uL (0.0-0.7); Absolute Lymphocyte Count 0.92 10^3/uL (1.2-3.4); Absolute Monocyte Count 0.49 10^3/uL (0.1-0.8); Absolute Neutrophil Count 2.56 10^3/uL (1.2-6.7); Basophils % 0.5 %; Eosinophils % 6.7 %; HGB 11.4 g/dL (13.5-17.5); Immature Grans % 0.5 %; Lymphocytes % 21.4 %; MCH 32.6 pg (27.0-33.0); MCHC 33.5 % (32.0-36.0); MCV 97 fL (80-95); MPV 10.2 fL (8.0-11.0); Monocytes % 11.4 %; Neutrophils % 59.5 %; Platelet Count 164 10^3/uL (130-400); RDW 14.6 % (11.8-14.1); RDW-SD 51.8 fL
[2024-11-20] MEDS: Normal Saline Flush 10 ML SYR IVP ×2 (08:59→11:25)
[2024-11-20 09:13] LABS: ALT 83 U/L (16-63); AST 84 U/L (15-37); Albumin 3.4 g/dL (3.4-5.0); Alkaline Phosphatase 259 U/L (46-116); Anion Gap 7.3 mmol/L (3-11); BUN 46 mg/dL (7-18); Bilirubin, Total 0.3 mg/dL (0.2-1.0); CO2 27.7 mmol/L (21.0-32.0); CREATININE 1.6 mg/dL (0.70-1.30); Chloride 105 mmol/L (98-107); Estimated GFR 44.65 (mL/min/1.73m2); Glucose 127 mg/dL (74-106); Magnesium 2.1 mg/dL (1.8-2.4); Potassium 4.7 mmol/L (3.5-5.1); Sodium 140 mmol/L (136-145); Total Protein 7.2 g/dL (6.4-8.2)
[2024-11-20 19:06] LABS: CA 19-9 53 U/mL (<35)
== END 2024-11-30 23:59 | disposition home or self-care (01) ==
LOC: INF 08:30
PROVIDERS: Nurse Practitioner Family; PCP Internal Medicine Hematology & Oncology; Visit Provider Internal Medicine Hematology & Oncology
DX: C22.1 Intrahepatic bile duct carcinoma (principal); Z45.2 Encounter for adjustment and management of vascular access device
CPT/HCPCS: 36591; 80053; 83735; 85025; 86301

== ENCOUNTER 2024-12-23 02:13 | Outpatient (RCR) | payer OTHER, SELFPAY ==
[2024-12-03] MEDS: Normal Saline Flush 10 ML SYR IVP (10:58)
[2024-12-03 11:26] LABS: Abs Immature Grans 0.02 10^3/uL (0.0-0.06); HCT 37.2 % (40.0-50.0); HGB 12.4 g/dL (13.5-17.5); Immature Grans % 0.4 %; MCH 32.5 pg (27.0-33.0); MCHC 33.3 % (32.0-36.0); MCV 97 fL (80-95); MPV 11.1 fL (8.0-11.0); Platelet Count 197 10^3/uL (130-400); RBC 3.82 10^6/uL (4.36-5.78); RDW 14.6 % (11.8-14.1); RDW-SD 52.7 fL; WBC 4.60 10^3/uL (4.4-10.8)
[2024-12-03 11:48] LABS: ALT 336 U/L (16-63); AST 212 U/L (15-37); Albumin 3.7 g/dL (3.4-5.0); Alkaline Phosphatase 406 U/L (46-116); Anion Gap 6.2 mmol/L (3-11); BUN 33 mg/dL (7-18); Bilirubin, Total 1.0 mg/dL (0.2-1.0); CO2 29.8 mmol/L (21.0-32.0); Calcium 9.6 mg/dL (8.5-10.1); Chloride 104 mmol/L (98-107); Estimated GFR 44.65 (mL/min/1.73m2); Glucose 110 mg/dL (74-106); Potassium 4.8 mmol/L (3.5-5.1); Sodium 140 mmol/L (136-145); Total Protein 7.8 g/dL (6.4-8.2)
[2024-12-04 10:28] LABS: CA 19-9 57 U/mL (<35)
[2024-12-23 08:55] LABS: Abs Immature Grans 0.04 10^3/uL (0.0-0.06); HCT 31.3 % (40.0-50.0); HGB 10.5 g/dL (13.5-17.5); Immature Grans % 0.7 %; MCH 32.7 pg (27.0-33.0); MCHC 33.5 % (32.0-36.0); MCV 98 fL (80-95); MPV 10.5 fL (8.0-11.0); Platelet Count 196 10^3/uL (130-400); RBC 3.21 10^6/uL (4.36-5.78); RDW 13.8 % (11.8-14.1); RDW-SD 49.1 fL; WBC 5.58 10^3/uL (4.4-10.8)
[2024-12-23 09:25] LABS: ALT 45 U/L (16-63); AST 36 U/L (15-37); Albumin 3.1 g/dL (3.4-5.0); Alkaline Phosphatase 227 U/L (46-116); Anion Gap 6.8 mmol/L (3-11); BUN 32 mg/dL (7-18); Bilirubin, Total 0.4 mg/dL (0.2-1.0); CO2 28.2 mmol/L (21.0-32.0); Calcium 8.7 mg/dL (8.5-10.1); Chloride 106 mmol/L (98-107); Estimated GFR 44.65 (mL/min/1.73m2); Glucose 125 mg/dL (74-106); Magnesium 1.8 mg/dL (1.8-2.4); Potassium 4.7 mmol/L (3.5-5.1); Sodium 141 mmol/L (136-145); TSH 4.40 uIU/mL (0.36-3.74); Total Protein 6.7 g/dL (6.4-8.2)
[2024-12-23] MEDS: Normal Saline Flush 10 ML SYR IVP (09:46)
[2024-12-23 18:58] LABS: CA 19-9 56 U/mL (<35)
[2024-12-24 15:58] LABS: Lipase 37 U/L (<78)
== END 2024-12-31 23:59 | disposition home or self-care (01) ==
LOC: INF 02:13
PROVIDERS: Nurse Practitioner Family; PCP Internal Medicine Hematology & Oncology; Visit Provider Internal Medicine Hematology & Oncology
DX: R10.10 Upper abdominal pain, unspecified (principal); C22.1 Intrahepatic bile duct carcinoma
CPT/HCPCS: 36591; 80053; 83690; 83735; 84439; 84443; 85025; 86301

== ENCOUNTER 2025-02-11 09:33 | Outpatient (RCR) | payer OTHER, SELFPAY ==
[2025-02-11] MEDS: Normal Saline Flush 10 ML SYR IVP (09:49)
[2025-02-11 10:50] LABS: Vitamin B12 567 pg/mL (193-986)
[2025-02-11 11:29] LABS: Hemoglobin A1C 4.9 % (<5.7)
[2025-02-11 12:39] LABS: Abs Immature Grans 0.02 10^3/uL (0.0-0.06); HCT 29.1 % (40.0-50.0); HGB 9.7 g/dL (13.5-17.5); Immature Grans % 0.4 %; MCH 32.2 pg (27.0-33.0); MCHC 33.3 % (32.0-36.0); MCV 97 fL (80-95); MPV 10.6 fL (8.0-11.0); Platelet Count 209 10^3/uL (130-400); RBC 3.01 10^6/uL (4.36-5.78); RDW 14.3 % (11.8-14.1); RDW-SD 50.5 fL; WBC 5.17 10^3/uL (4.4-10.8)
[2025-02-11 13:40] LABS: ALT 60 U/L (16-63); AST 49 U/L (15-37); Albumin 3.5 g/dL (3.4-5.0); Alkaline Phosphatase 264 U/L (46-116); Anion Gap 11.3 mmol/L (3-11); BUN 24 mg/dL (7-18); Bilirubin, Total 0.5 mg/dL (0.2-1.0); CO2 23.7 mmol/L (21.0-32.0); Calcium 9.4 mg/dL (8.5-10.1); Chloride 105 mmol/L (98-107); Ferritin 500 ng/mL (26-388); Folate 8.7 ng/mL (8.6-20.0); Glucose 174 mg/dL (74-106); Potassium 4.6 mmol/L (3.5-5.1); Sodium 140 mmol/L (136-145); Total Protein 7.0 g/dL (6.4-8.2)
== END 2025-03-02 23:59 | disposition home or self-care (01) ==
LOC: INF 09:33
PROVIDERS: PCP Internal Medicine Hematology & Oncology; Visit Provider Nurse Practitioner Family
DX: D53.9 Nutritional anemia, unspecified (principal); E13.9 Other specified diabetes mellitus without complications; C22.1 Intrahepatic bile duct carcinoma; Z45.2 Encounter for adjustment and management of vascular access device
CPT/HCPCS: 36591; 80053; 82607; 82728; 82746; 83036; 83540; 83550; 85025; 86301

== ENCOUNTER 2025-03-11 00:42 | Outpatient (RCR) | payer OTHER, SELFPAY ==
[2025-03-11] MEDS: Normal Saline Flush 10 ML SYR IVP (08:28)
[2025-03-11 08:43] LABS: Abs Immature Grans 0.02 10^3/uL (0.0-0.06); HCT 30.8 % (40.0-50.0); HGB 9.8 g/dL (13.5-17.5); Immature Grans % 0.4 %; MCH 30.5 pg (27.0-33.0); MCHC 31.8 % (32.0-36.0); MCV 96 fL (80-95); MPV 9.6 fL (8.0-11.0); Platelet Count 212 10^3/uL (130-400); RBC 3.21 10^6/uL (4.36-5.78); RDW 15.1 % (11.8-14.1); RDW-SD 53.1 fL; WBC 4.92 10^3/uL (4.4-10.8)
[2025-03-11 09:04] LABS: ALT 107 U/L (16-63); AST 67 U/L (15-37); Albumin 3.3 g/dL (3.4-5.0); Alkaline Phosphatase 495 U/L (46-116); Anion Gap 8.4 mmol/L (3-11); BUN 27 mg/dL (7-18); Bilirubin, Total 0.5 mg/dL (0.2-1.0); CO2 26.6 mmol/L (21.0-32.0); Calcium 8.8 mg/dL (8.5-10.1); Chloride 106 mmol/L (98-107); Glucose 98 mg/dL (74-106); Potassium 5.0 mmol/L (3.5-5.1); Sodium 141 mmol/L (136-145); Total Protein 7.1 g/dL (6.4-8.2)
== END 2025-04-02 23:59 | disposition home or self-care (01) ==
LOC: INF 00:42
PROVIDERS: PCP Internal Medicine Hematology & Oncology; Visit Provider Nurse Practitioner Family
DX: C22.1 Intrahepatic bile duct carcinoma (principal); D53.9 Nutritional anemia, unspecified; Z45.2 Encounter for adjustment and management of vascular access device
CPT/HCPCS: 36591; 80053; 82668; 85025

== ENCOUNTER → 2025-04-08 01:51 | Outpatient (CLI) | payer OTHER, SELFPAY ==
--- NOTE | 2025-04-08 | DI.CT_ITS ---
Exam(s) CT CHEST/ABD/PEL W EXAM: CT CHEST/ABD/PEL W CLINICAL HISTORY: HCC,CHOLANGIOCARCINOMA,ON TREATMENT BREAK,[id number] TECHNIQUE: Imaging Protocol: Axial computed tomography images with coronal and sagittal reformatted images were created and reviewed. Lung Computer Aided Detection (CAD) was utilized. CONTRAST MATERIAL: Intravenous: Omnipaque 350 contrast volume:75 mL Oral: Yes COMPARISON: CT CT CHEST WO CONTRAST (GENERIC) from 01/31/[address] CHEST/ABD/PEL W from 09/23/[address] CHEST/ABD/PEL W from 09/10/[address] CHEST/ABD/PEL W from 11/20/[address] ABDOMEN PELVIS W from 12/23/2024 FINDINGS: CHEST: Tracheobronchial tree: Patent where visualized. No evidence of bronchiectasis. Pulmonary parenchyma: There are calcified granuloma present. The 6 mm nodule in the periphery of the left lower lobe is stable. There are several small ground- glass opacities in the lungs predominantly involving the upper lobes and the right middle lobe. There are no focal consolidating infiltrates present. Visualized thyroid gland: Unremarkable. Mediastinum and Wendy: No dominant adenopathy or fluid collection. The esophagus is unremarkable. Pleura: There is a new small right pleural effusion. There is no left pleural effusion. There is no pneumothorax. Heart: The heart is not dilated. Coronary artery calcifications are present. No pericardial effusion. Pulmonary arteries: No pulmonary emboli are identified. Aorta: Thoracic aorta non-dilated. Atherosclerotic calcification is present. There is no evidence of dissection. Lymph nodes: Within normal limits. Tubes, Catheters, and Lines: There is a right chest port in place. Soft tissues: Unremarkable. Bones:Within normal limits for the patient's age. ABDOMEN: Liver: Normal density. No measurable mass. Portal, Superior Mesenteric, and Splenic Veins: Unremarkable. Gallbladder and Biliary Tract: There biliary stents again seen. The degree of intrahepatic biliary ductal dilatation is stable. Pancreas: Normal density, no abnormal calcifications or inflammatory process. Spleen: Normal. Adrenals: No masses seen. Kidneys: Normal size, contour and axis. No radiodense stones or obstructive uropathy. There are bilateral simple renal cysts. No follow-up is recommended. Abdominal Aorta: Abdominal portion non-dilated. Atherosclerotic calcification is present. Bowel: There are diverticula seen in the colon, but no evidence of acute diverticulitis. There is no evidence of bowel obstruction or bowel wall thickening. There is no evidence of appendicitis. Peritoneal Cavity: There is a new small nodular density in the anterior upper abdomen measuring 1.9 x 1.2 cm (series 22, image 41). It lies anterior to the stomach and adjacent to the left lobe of the liver. Metastatic disease should be considered. There is no ascites. No free air. Lymph Nodes: Within normal limits. Bones: Within normal limits for the patient's age. There is an L4 laminectomy. There is a stable sclerotic focus seen in the right femoral head. Soft Tissues: Unremarkable. PELVIS: Bladder: Symmetric distention, no gross wall thickening. Reproductive Organs: Radiation seeds are noted in the prostate gland. Lymph Nodes: Within normal limits. Bones: Within normal limits. IMPRESSION: 1. New small 1.9 x 1.2 cm nodular density in the upper anterior abdomen. This may represent a metastatic focus. 2. Stable appearance of the biliary tree and stents. 3. There is no acute abdominal or pelvic process. 4. New small right pleural effusion. 5. New small ground-glass opacities in the lungs predominantly in the upper lobes in the right middle lobe. Differential considerations include infection, including atypical pathogens, pulmonary edema, hemorrhage or neoplasm. RADIATION DOSE DELIVERED: 1,201.48mGy.cm Total DLP DATA REPOSITORY: All CT scans at this facility are submitted to the National Radiology Data Registry (NRDR) Dose Index Registry (DIR) with the [employer] (ACR). RADIATION OPTIMIZATION: All CT scans at this facility use at least one of these dose optimization techniques: automated exposure control; mA and/or kV adjustment per patient size (includes targeted exams where dose is matched to clinical indication); or iterative reconstruction.
[2025-04-08] MEDS: Barium Sulfate 2% W/V-Creamy Vanilla Smoothie 450 ML BTL PO ×2 (07:38→07:39)
[2025-04-08] MEDS: Normal Saline - Diluent 50 ML VIAL IJ (09:52)
[2025-04-08] MEDS: Omnipaque 350 MG/ML 500 ML BTL-Imaging package IJ (09:52)
[2025-04-08] MEDS: Normal Saline Flush 10 ML SYR IVP (09:52)
== END ==
PROVIDERS: PCP Internal Medicine Hematology & Oncology; Visit Provider Nurse Practitioner Family
DX: C22.1 Intrahepatic bile duct carcinoma (principal); C22.0 Liver cell carcinoma
CPT/HCPCS: 74177; 71260

== ENCOUNTER 2025-04-22 08:15 | Outpatient (RCR) | payer OTHER, SELFPAY ==
[2025-04-08] MEDS: Normal Saline Flush 10 ML SYR IVP (07:41)
[2025-04-08 07:55] LABS: Abs Immature Grans 0.02 10^3/uL (0.0-0.06); HCT 29.8 % (40.0-50.0); HGB 9.8 g/dL (13.5-17.5); Immature Grans % 0.3 %; MCH 30.4 pg (27.0-33.0); MCHC 32.9 % (32.0-36.0); MCV 93 fL (80-95); MPV 10.0 fL (8.0-11.0); Platelet Count 175 10^3/uL (130-400); RBC 3.22 10^6/uL (4.36-5.78); RDW 14.8 % (11.8-14.1); RDW-SD 50.4 fL; WBC 5.91 10^3/uL (4.4-10.8)
[2025-04-08 08:18] LABS: Iron 57 ug/dL (65-175); Total Iron Binding Capacity 320 ug/dL (250-450); Transferrin Sat 18 % (20-55)
[2025-04-08 08:21] LABS: ALT 23 U/L (16-63); AST 23 U/L (15-37); Albumin 3.3 g/dL (3.4-5.0); Alkaline Phosphatase 215 U/L (46-116); Anion Gap 8.8 mmol/L (3-11); BUN 31 mg/dL (7-18); Bilirubin, Total 0.5 mg/dL (0.2-1.0); CO2 25.2 mmol/L (21.0-32.0); Calcium 8.9 mg/dL (8.5-10.1); Chloride 106 mmol/L (98-107); Estimated GFR 44.38 (mL/min/1.73m2); Ferritin 273 ng/mL (26-388); Glucose 144 mg/dL (74-106); Potassium 4.6 mmol/L (3.5-5.1); Sodium 140 mmol/L (136-145); Total Protein 7.1 g/dL (6.4-8.2)
[2025-04-09 11:00] LABS: CA 19-9 108 U/mL (<35)
[2025-04-22] MEDS: Normal Saline Flush 10 ML SYR IVP (08:56)
[2025-04-22 09:00] LABS: Abs Immature Grans 0.03 10^3/uL (0.0-0.06); HCT 27.8 % (40.0-50.0); HGB 9.0 g/dL (13.5-17.5); Immature Grans % 0.6 %; MCH 29.5 pg (27.0-33.0); MCHC 32.4 % (32.0-36.0); MCV 91 fL (80-95); MPV 10.7 fL (8.0-11.0); Platelet Count 160 10^3/uL (130-400); RBC 3.05 10^6/uL (4.36-5.78); RDW 14.8 % (11.8-14.1); RDW-SD 49.3 fL; WBC 5.43 10^3/uL (4.4-10.8)
[2025-04-22 09:25] LABS: TSH 4.29 uIU/mL (0.55-4.78)
[2025-04-22 09:26] LABS: ALT 26 U/L (10-49); AST 31 U/L (<34); Albumin 3.7 g/dL (3.4-5.0); Alkaline Phosphatase 175 U/L (46-116); Anion Gap 7.8 mmol/L (3-11); BUN 35 mg/dL (9-23); Bilirubin, Total 0.30 mg/dL (0.2-1.2); CO2 27.2 mmol/L (20.0-31.0); Calcium 9.1 mg/dL (8.3-10.6); Chloride 107 mmol/L (98-107); Glucose 152 mg/dL (74-106); Magnesium 2.0 mg/dL (1.6-2.6); Potassium 4.8 mmol/L (3.5-5.1); Sodium 142 mmol/L (136-145); Total Protein 6.4 g/dL (5.7-8.2)
[2025-04-23 12:06] LABS: CA 19-9 122 U/mL (<35)
== END 2025-05-02 23:59 | disposition home or self-care (01) ==
LOC: INF 08:15
PROVIDERS: PCP Internal Medicine Hematology & Oncology; Visit Provider Nurse Practitioner Family
DX: Z45.2 Encounter for adjustment and management of vascular access device (principal); C22.1 Intrahepatic bile duct carcinoma
CPT/HCPCS: 36591; 80053; 82668; 82728; 83540; 83550; 83735; 84439; 84443; 85025; 86301

== ENCOUNTER 2025-05-20 00:47 | Outpatient (RCR) | payer OTHER, SELFPAY ==
[2025-05-20] MEDS: Normal Saline Flush 10 ML SYR IVP (14:18)
[2025-05-20 15:07] LABS: ALT 28 U/L (10-49); AST 33 U/L (<34); Albumin 4.1 g/dL (3.2-5.0); Alkaline Phosphatase 184 U/L (46-116); Anion Gap 6.8 mmol/L (3-11); BUN 32 mg/dL (9-23); Bilirubin, Total 0.4 mg/dL (0.2-1.2); CO2 27.2 mmol/L (20.0-31.0); Calcium 9.2 mg/dL (8.3-10.6); Chloride 106 mmol/L (98-107); Glucose 92 mg/dL (74-106); Potassium 5.0 mmol/L (3.5-5.1); Sodium 140 mmol/L (136-145); Total Protein 7.4 g/dL (5.7-8.2)
[2025-05-20 15:37] LABS: WBC 6.88 10^3/uL (4.4-10.8)
[2025-05-20 15:38] LABS: Abs Immature Grans 0.02 10^3/uL (0.0-0.06); HCT 31.0 % (40.0-50.0); HGB 9.9 g/dL (13.5-17.5); Immature Grans % 0.3 %; MCH 29.3 pg (27.0-33.0); MCHC 31.9 % (32.0-36.0); MCV 92 fL (80-95); MPV 9.6 fL (8.0-11.0); Platelet Count 230 10^3/uL (130-400); RBC 3.38 10^6/uL (4.36-5.78); RDW 14.7 % (11.8-14.1); RDW-SD 49.6 fL
[2025-05-21 09:23] LABS: CA 19-9 149 U/mL (<35)
== END 2025-06-02 23:59 | disposition home or self-care (01) ==
LOC: INF 00:47
PROVIDERS: PCP Internal Medicine Hematology & Oncology; Visit Provider Nurse Practitioner Family
DX: Z45.2 Encounter for adjustment and management of vascular access device (principal); C22.0 Liver cell carcinoma; C22.1 Intrahepatic bile duct carcinoma
CPT/HCPCS: 36591; 80053; 82105; 85025; 86301